=== PATIENT | female | born 1985 | race Caucasian/White ===

== ENCOUNTER 2019-10-09 10:28 | Emergency (ER) | payer OTHER, SELFPAY ==
[2019-10-09 10:33] VITALS: BP 124/98; PULSE 107; RESP 16; TEMP 36.3
--- NOTE | 2019-10-09 10:58 | ED.URI ---
HPI - URI/Sore Throat General Chief Complaint: Upper Respiratory Infection Stated Complaint: sore throat Time Seen by Provider: 10/09/19 10:58 Source: patient and RN notes reviewed Mode of arrival: ambulatory Limitations: no limitations History of Present Illness HPI Narrative: 34-year-old female who presents to [facility] with complaints of 5 days of sore throat, some sinus congestion and pressure low-grade fevers of 99 Fahrenheit. Patient states she has a history of strep throat and also of sinus infections did take Sudafed and also ibuprofen for her discomfort patient does have some lymphadenopathy bilaterally rates her pain a 7 out of 10 to her throat especially with swallowing. MD elicited complaint: fever (low grade), sore throat, rhinorrhea, nasal congestion and sinus pain Pertinent past history: sinusitis and other (strep throat) Onset (ago): day(s) (5) Consistency: progressively worsening Severity: severe Pain scale (0-10): 7 Description of mucous: clear and yellow Able to tolerate fluids by mouth: Yes Exacerbating factors: swallowing and leaning forward Relieving factors: NSAID and other (sudafed) Associated symptoms: fever, chills, voice changes, rhinorrhea, nasal congestion and sore throat Treatments prior to arrival: ibuprofen and other (sudafed) Related Data Allergies Allergy/AdvReac Type Severity Reaction Status Date / Time No Known Allergies Allergy Verified 10/09/19 10:40 Review of Systems Review of Systems: Narrative: CONSTITUTIONAL reports low-grade fever, chills, or sweats. EYES: Denies visual changes, redness, or discharge. ENT: Positive rhinorrhea, congestion,positive sore throat, no otalgia. CARDIOVASCULAR: Denies chest pain, palpitations, or edema. RESPIRATORY: Occasional nonproductive cough denies dyspnea. GASTROINTESTINAL: Denies abdominal pain, nausea, vomiting, or diarrhea. GENITOURINARY: Denies dysuria or hematuria. SKIN: Denies rash or itching. MUSCULOSKELETAL: Denies back pain, joint pain, or myalgia. NEUROLOGIC: Denies headache, numbness, or weakness. PSYCHIATRIC: Denies anxiety or depression. All systems reviewed & are unremarkable except as noted in HPI and below PMFSH Past Medical History Medical History (Updated 10/09/19 @ 11:12 by Clary Rich NP) Acute sinus infection Anxiety and depression Asthma Surgical History Surgical History (Updated 10/09/19 @ 11:09 by Clary Rich NP) History of bunionectomy Status post wisdom tooth extraction Social History Social History Smoking status: Current every day smoker Alcohol intake: current Substance use type: marijuana Gender identity (if verbalized by the patient): Female Comments At time of signature, agree with nursing past medical, social history. There is no relevant family history pertinent to the presenting complaint Exam Narrative: Exam Narrative: GENERAL: Well-appearing, well-nourished, and in no acute distress. HEAD: Normocephalic, atraumatic. EYES: PERRLA and EOMI. ENT: Nares red with light yellow rhinorrhea no epistaxis. Mucous membranes moist. TMs normal with good light reflex throat red with tonsils swollen white patches on left tonsil NECK: Supple. No lymphadenopathy CHEST: Clear to auscultation. No respiratory distress. SaO2 100% HEART: Regular rate and rhythm. No murmur heard. Normal peripheral pulses. ABDOMEN: Soft, nontender, nondistended, normal active bowel sounds. EXTREMITIES: Normal range of motion. No edema. SKIN: Warm, dry, no rash. NEURO: No focal deficits. Alert and oriented x3. Course Vital Signs Vital signs: Vital Signs Temperature 36.3 C L 10/09/19 10:33 Pulse Rate 107 H 10/09/19 10:33 Respiratory Rate 16 10/09/19 10:33 Blood Pressure 124/98 H 10/09/19 10:33 Temperature 36.3 C L 10/09/19 10:33 Pulse Rate 107 H 10/09/19 10:33 Respiratory Rate 16 10/09/19 10:33 Blood Pressure 124/98 H 10/09/19 10:3
== END 2019-10-09 11:16 | disposition home or self-care (01) ==
PROVIDERS: Emergency Provider Registered Nurse; PCP Family Medicine Adolescent Medicine
DX: J03.90 Acute tonsillitis, unspecified (principal); J01.80 Other acute sinusitis; J45.909 Unspecified asthma, uncomplicated; F17.200 Nicotine dependence, unspecified, uncomplicated
CPT/HCPCS: 87081; 87880; 99213; G0463

== ENCOUNTER 2019-10-22 10:36 | Emergency (ER) | payer OTHER, SELFPAY ==
[2019-10-22 11:13] VITALS: BP 131/88; PULSE 85; RESP 20; TEMP 36.5; O2SAT 100
--- NOTE | 2019-10-22 11:22 | ED.GENADULT ---
HPI - General Adult General Chief complaint: Ear Stated complaint: sore throat/ear pn Time Seen by Provider: 10/22/19 11:22 Source: patient Mode of arrival: ambulatory Limitations: no limitations History of Present Illness HPI narrative: 34-year-old female patient presents to the [facility] with complaints of sore throat. Patient states she was seen here about 2 weeks ago and tested negative for strep but they gave her amoxicillin anyway. Patient states that she finished the amoxicillin and was feeling a little bit better but not completely cured . Patient states now that she has had sore throat that is gotten increasingly worse the past couple of days since finishing amoxicillin. Patient also states she has had some bilateral ear pain, runny nose, stuffy nose that she has been trying to take Sudafed, ibuprofen, Tylenol Mucinex for. Patient denies any fevers that she is aware of. Related Data Allergies Allergy/AdvReac Type Severity Reaction Status Date / Time No Known Allergies Allergy Verified 10/09/19 10:40 Review of Systems Review of Systems: Narrative: CONSTITUTIONAL: Denies fever, chills, or sweats. EYES: Denies visual changes, redness, or discharge. ENT: Positive rhinorrhea, congestion, sore throat, and bilateral otalgia. CARDIOVASCULAR: Denies chest pain, palpitations, or edema. RESPIRATORY: Denies cough or dyspnea. GASTROINTESTINAL: Denies abdominal pain, nausea, vomiting, or diarrhea. GENITOURINARY: Denies dysuria or hematuria. SKIN: Denies rash or itching. MUSCULOSKELETAL: Denies back pain, joint pain, or myalgia. NEUROLOGIC: Denies headache, numbness, or weakness. PSYCHIATRIC: Denies anxiety or depression. [facility] Past Medical History Medical History Acute sinus infection Anxiety and depression Asthma Surgical History Surgical History History of bunionectomy Status post wisdom tooth extraction Family History Family History Grandparent Diabetes mellitus Other Family history of malignant neoplasm of breast Social History Social History Smoking status: Current every day smoker Alcohol intake: current Substance use type: marijuana Gender identity (if verbalized by the patient): Female Comments At the time of my signature I agree with nursing past medical history, surgical, social, and family history. There is no relevant family history pertinent to the presenting complaint. Exam Narrative: Exam Narrative: GENERAL: Well-appearing, well-nourished, and in no acute distress. HEAD: Normocephalic, atraumatic. EYES: PERRLA and EOMI. ENT: Nares with erythema and edema noted bilaterally, no rhinorrhea or epistaxis. Mucous membranes moist. Posterior pharynx with 1+ tonsil enlargement but no exudates no lesions present. NECK: Supple. No lymphadenopathy CHEST: Clear to auscultation. No respiratory distress. HEART: Regular rate and rhythm. No murmur heard. Normal peripheral pulses. ABDOMEN: Soft, nontender, nondistended, normal active bowel sounds. EXTREMITIES: Normal range of motion. No edema. SKIN: Warm, dry, no rash. NEURO: No focal deficits. Alert and oriented x3. Course Vital Signs Vital signs: Vital Signs Temperature 36.5 C 10/22/19 11:13 Pulse Rate 85 10/22/19 11:13 Respiratory Rate 20 10/22/19 11:13 Blood Pressure 131/88 10/22/19 11:13 Pulse Oximetry 100 10/22/19 11:13 Temperature 36.5 C 10/22/19 11:13 Pulse Rate 85 10/22/19 11:13 Respiratory Rate 20 10/22/19 11:13 Blood Pressure 131/88 10/22/19 11:13 Pulse Oximetry 100 10/22/19 11:13 Vital signs reviewed. The patient has been informed that they may have pre-hypertension or Hypertension based on a BP reading in the department. I recommend that the patient [facility]
== END 2019-10-22 11:33 | disposition home or self-care (01) ==
PROVIDERS: Emergency Provider Nurse Practitioner Family; PCP Family Medicine Adolescent Medicine
DX: J02.0 Streptococcal pharyngitis (principal); F17.200 Nicotine dependence, unspecified, uncomplicated; J45.909 Unspecified asthma, uncomplicated
CPT/HCPCS: 87804; 87880; 99213; G0463

== ENCOUNTER 2019-11-16 15:28 | Emergency (ER) | payer OTHER, SELFPAY ==
[2019-11-16 15:38] VITALS: BP 145/95; PULSE 94; RESP 20; TEMP 37.4; O2SAT 100
--- NOTE | 2019-11-16 15:44 | ED.FEMALEGU ---
HPI - Female Genitourinary General Chief complaint: Urogenital-Female Stated complaint: Possible UTI Time Seen by Provider: 11/16/19 15:46 Source: patient and RN notes reviewed Mode of arrival: ambulatory Limitations: no limitations History of Present Illness HPI Narrative: 34 female presents with concern for burning with urination, vaginal burning and itching. Reports she saw her relationship executive on November 13 and was swabbed, she is not short for, and has not received those results yet. She did not receive any medication at that time. She reports she used [id number] 3-day Monistat topical treatment with no relief. Reports she started that 3-day treatment 5 days ago. Her last menstrual period was on 11/05/2019. She took Azo today with no relief. She denies frequency, urgency, hematuria. Related Data Home Medications Medication Instructions Recorded Confirmed cetirizine 10 mg capsule 10 mg PO DAILY 11/14/19 11/16/19 fluticasone propionate 50 1 spray NASAL DAILY 11/14/19 11/16/19 mcg/actuation nasal spray,suspension Allergies Allergy/AdvReac Type Severity Reaction Status Date / Time No Known Allergies Allergy Verified 11/14/19 10:11 Review of Systems Review of Systems: Narrative: CONSTITUTIONAL: Denies malaise, chills, sweats, or fever. CARDIOVASCULAR: Denies chest pain, palpitations, or edema. RESPIRATORY: Denies cough or dyspnea. GASTROINTESTINAL: Denies abdominal pain, nausea, vomiting, diarrhea, GENITOURINARY: Reports dysuria, vaginal itching, vaginal irritation. Denies frequency, urgency, or hematuria. MUSCULOSKELETAL: Denies back pain, myalgia. All systems reviewed & are unremarkable except as noted in HPI and below PMFSH Social History Social History Smoking status: Current every day smoker Alcohol intake: current Substance use type: marijuana Gender identity (if verbalized by the patient): Male Comments At time of signature, agree with nursing past medical, surgical, social and family history. There is no relevant family history pertinent to the presenting complaint Exam Narrative: Exam Narrative: GENERAL: Well-appearing, well-nourished, and in no acute distress. HEAD: Normocephalic. EYES: PERRLA, conjunctivae clear. NECK: Supple. No lymphadenopathy CHEST: Clear to auscultation. No respiratory distress. HEART: Regular rate and rhythm. No murmur heard. Normal peripheral pulses. ABDOMEN: Soft, nontender upon palpation, nondistended, normal active bowel sounds, no palpable or pulsatile masses, no guarding. No CVA tenderness SKIN: Warm, dry, no rash. NEURO: Alert and oriented x3. PSYCH: Normal mood and affect : General: Yes no CVA tenderness External Female Exam: erythema (Mild erythema very mild excoriation noted) Speculum Exam - Vagina: normal appearance of the vagina, normal palpation and normal vaginal discharge Speculum Exam - Cervix: normal appearance of the cervix and normal palpation Bimanual exam- vagina & uterus: other (No cervical motion tenderness or adnexal tenderness) Female genitals images: 1. Mild excoriation and erythema 2. Mild excoriation and erythema Course Course Emergency Course: Patient potential diagnosis, advised her to follow-up with her primary care provider regarding results of test done at her office, advised we will contact her if her urine culture identifies a bacteria that requires antibiotic. Patient is aware of, understands, and agrees to treatment plan. Anticipatory guidance given. Patient agrees to follow-up as directed and is aware of reasons to seek care at the emergency department. Portions of this record may have been created with voice recognition software Vital Signs Vital signs: Vital Signs Temperature 99.3 F 11/16/19 15:38 Pulse Rate 94 11/16/19 15:38 Respiratory Rate 20 11/16/19 15:38 Blood Pressure 145/95 H 11/16/19 15:38 Pulse Oximetry 100 11/16/19 15:38
--- NOTE | 2019-11-16 15:57 | PC.NURSE ---
Pelvic exam per reynaldo [facility] no cultures
== END 2019-11-16 16:01 | disposition home or self-care (01) ==
PROVIDERS: Emergency Provider Nurse Practitioner; PCP Family Medicine Adolescent Medicine
DX: N89.8 Other specified noninflammatory disorders of vagina (principal); R30.0 Dysuria; F17.200 Nicotine dependence, unspecified, uncomplicated
CPT/HCPCS: 81003; 87086; 99214; G0463

== ENCOUNTER 2020-04-10 15:04 | Emergency (ER) | payer OTHER, SELFPAY ==
[2020-04-10 15:08] VITALS: BP 142/99; PULSE 100; RESP 18; TEMP 36.1; O2SAT 99
--- NOTE | 2020-04-10 16:54 | ED.GENADULT ---
HPI - General Adult General Chief complaint: Anxiety <Jay Painter PA-C - Last Filed: 04/10/20 18:16> Stated complaint: Heart Racing, Anxiety <Jay Painter PA-C - Last Filed: 04/10/20 18:16> Time Seen by Provider: 04/10/20 16:22 <KERI England Last Filed: 04/10/20 18:16> Source: patient <KERI England Last Filed: 04/10/20 18:16> Mode of arrival: ambulatory <Jay Painter PA-C - Last Filed: 04/10/20 18:16> Limitations: no limitations <Jay Painter PA-C - Last Filed: 04/10/20 18:16> History of Present Illness HPI narrative: Patient is a 34-year-old female who presents to emergency department for evaluation of anxiety and not feeling well which has been off and on over the weekend into today patient has not taken anything for her symptoms on arrival patient becomes tearful and anxious in giving the history patient denies any pain illness or other complaints <Jay Painter PA-C - Last Filed: 04/10/20 18:16> Related Data Home medications: Home Medications Medication Instructions Recorded Confirmed cetirizine 10 mg capsule 10 mg PO DAILY 11/14/19 11/16/19 fluticasone propionate 50 1 spray NASAL DAILY 11/14/19 11/16/19 mcg/actuation nasal spray,suspension <Jay Painter PA-C - Last Filed: 04/10/20 18:16> Allergies/adverse reactions: Allergies Allergy/AdvReac Type Severity Reaction Status Date / Time No Known Allergies Allergy Verified 04/10/20 15:11 <Jay Painter PA-C - Last Filed: 04/10/20 18:16> Review of Systems Review of Systems: All systems reviewed & are unremarkable except as noted in HPI and below <Jay Painter PA-C - Last Filed: 04/10/20 18:16> PMFSH Past Medical History Medical History: Medical History Acute sinus infection Anxiety and depression Asthma Vaginal delivery <KERI England Last Filed: 04/10/20 18:16> Surgical History Surgical History: Surgical History History of bunionectomy Status post wisdom tooth extraction <Jay Painter PA-C - Last Filed: 04/10/20 18:16> Social History Social History: Social History Smoking status: Current every day smoker Alcohol intake: current Substance use type: marijuana Gender identity (if verbalized by the patient): Male <Jay Painter PA-C - Last Filed: 04/10/20 18:16> Exam Narrative: Exam Narrative: GENERAL: Well-appearing, well-nourished, and in no acute distress. HEAD: Normocephalic, atraumatic. EYES: PERRLA and EOMI. ENT: Nares clear, no rhinorrhea or epistaxis. Mucous membranes moist. CHEST: Clear to auscultation. No respiratory distress. No wheezes rales or rhonchi HEART: Regular rate and rhythm. No murmur heard. Normal peripheral pulses. ABDOMEN: Soft, nontender, nondistended EXTREMITIES: Normal range of motion. No edema. SKIN: Warm, dry, no rash. NEURO: No focal deficits. Alert and oriented x3. PSYCH: Acutely anxious with normal affect <Jay Painter PA-C - Last Filed: 04/10/20 18:16> Course Course Emergency Course: Patient in the room at this time resting comfortably aware of case findings treatment plan and diagnosis afebrile nontoxic-appearing no high risk changes in the blood work felt appropriate for outpatient reevaluation by primary care patient was given fluids and medications in the emergency department <Jay Painter PA-C - Last Filed: 04/10/20 18:16> Vital Signs Vital signs: Vital Signs Temperature 97.0 F L 04/10/20 15:08 Pulse Rate 100 04/10/20 15:08 Respiratory Rate 18 04/10/20 15:08 Blood Pressure 142/99 H 04/10/20 15:08 Pulse Oximetry 99 04/10/20 15:08 Temperature 97.0 F L 04/10/20 15:08 Pulse Rate 83 04/10/20 18:20 Respiratory Rate 18
--- NOTE | 2020-04-10 17:18 | PC.NURSE ---
pt found rolling around in bed laughing at videos on phone, in no aparent distress. does not appear anxious.
[2020-04-10 17:31] LABS: Alanine Aminotransferase 27 U/L (4-35); Albumin Level 4.7 g/dL (3.5-5.1); Alkaline Phosphatase 73 U/L (38-126); Anion Gap 10 mmol/L (8-16); Aspartate Amino Transferase 33 U/L (14-36); Bilirubin,Total 0.8 mg/dL (0.2-1.3); Blood Urea Nitrogen 14 mg/dL (7-17); Calcium 9.3 mg/dL (8.4-10.2); Carbon Dioxide 23 mmol/L (22-30); Chloride 103 mmol/L (98-107); Estimated CRCL calculation 120 ml/min; Estimated Glomerular Filt Rate > 60; Glucose 86 mg/dL (65-105); Potassium 4.4 mmol/L (3.4-5.0); Sodium 136 mmol/L (137-145)
[2020-04-10 17:41] LABS: Basophils Absolute Auto 0.1 K/mm3 (0.0-0.1); Basophils Percent Auto 0.8 % (0.2-1.2); Eosinophils Absolute Auto 0.4 K/mm3 (0-0.3); Eosinophils Percent Auto 3.4 % (0-4.4); Hematocrit 43.9 % (37.0-47.0); Immature Granulocyte Absolute 0.04 K/mm3 (0.00-0.031); Immature Granulocyte Percent A 0.4 % (0-0.5); Lymphocytes Absolute Auto 2.68 K/mm3 (0.9-3.2); Lymphocytes Percent Auto 24.8 % (18.3-44.2); Mean Corpuscular HGB Conc 36.4 g/dl (32-36); Mean Corpuscular Hemoglobin 32.5 pg (26-34); Mean Corpuscular Volume 89.2 fl (80-100); Mean Platelet Volume 10.2 fl (7.4-10.4); Monocytes Absolute Auto 0.7 K/mm3 (0.1-0.6); Monocytes Percent Auto 6.7 % (2.6-8.5); Neutrophils Absolute Auto 6.9 K/mm3 (1.3-6.7); Neutrophils Percent Auto 63.9 % (45.5-73.1); Platelet Count Result 281 k/mm3 (150-375); Red Blood Count 4.92 M/mm3 (4.2-5.4); Red Cell Distribution Width 12.5 % (11.5-14.5); White Blood Count 10.8 K/mm3 (4.5-10.0)
[2020-04-10 17:52] LABS: Add Urine Microscopic? YES; Appearance Urine Clear (Clear); Bacteria Urine Trace /hpf; Bilirubin Urine Negative (Negative); Blood Urine 1+ (Negative); Color Urine Yellow (Yellow); Glucose Urine UA Negative (Negative); Ketones Urine Negative (Negative); Leukocyte Esterase Ur Negative LEU/UL (Negative); Mucus Urine Rare /lpf; Nitrate Urine Negative (Negative); Protein Urine Negative (Negative); Specific Grav Ur 1.014 (1.001-1.035); Squamous Epithelial Cell Urine Few /hpf (Few); Urobilinogen Urine Negative mg/dL (<2.0); WBC Urine 0-3 /hpf
[2020-04-10 18:20] VITALS: BP 124/84; PULSE 83; RESP 18; O2SAT 100
== END 2020-04-10 18:21 | disposition home or self-care (01) ==
PROVIDERS: Emergency Medicine Emergency Medical Services; Emergency Provider General Practice; PCP Family Medicine Adolescent Medicine
DX: F41.9 Anxiety disorder, unspecified (principal); F32.9 Major depressive disorder, single episode, unspecified; J45.909 Unspecified asthma, uncomplicated
CPT/HCPCS: 36415; 80053; 81001; 85025; 96374; 99284; J2060

== ENCOUNTER 2020-05-01 09:33 | Outpatient (CLI) | payer OTHER, SELFPAY ==
--- NOTE | 2020-05-06 13:35 | P.PCNHOL_ITS ---
Holter/Event Monitor Holter/Event Monitor Date of procedure: 05/01/20 Procedure Type: 24 hour Holter monitor Diagnosis: tachycardia Indications: tachycardia Image/Tracing Quality: favorable Finding: the cardiac rhythm is sinus with normal FL QRS and QT intervals. The heart rate varies from a minimum of 55 to a maximum of 145. A mean rate of 82 was recorded. There were no significant pauses or abnormalities of AV conduction. The longest RR interval recorded was 1.1 seconds. Supraventricular ectopic activity was not seen at all during this study. There were no examples of atrial fibrillation or SVT. Ventricular ectopic activity was not seen at all during this study the patient is submitted a diary in which there were no cardiac symptoms reported Conclusion: unremarkable 24 hour Holter monitor Mikel Dumont MD [facility]
== END 2020-05-01 09:34 | disposition home or self-care (01) ==
PROVIDERS: PCP Family Medicine Adolescent Medicine; Visit Provider Physician Assistant
DX: R00.0 Tachycardia, unspecified (principal)
CPT/HCPCS: 93225; 93226

== ENCOUNTER 2020-09-15 14:20 | Emergency (ER) | payer OTHER, SELFPAY ==
[2020-09-15 14:35] VITALS: BP 127/87; PULSE 83; RESP 18; TEMP 36.7; O2SAT 100
--- NOTE | 2020-09-15 14:47 | ED.URI ---
HPI - URI/Sore Throat General Chief Complaint: Upper Respiratory Infection Stated Complaint: sinus inf Time Seen by Provider: 09/15/20 14:38 Source: patient and RN notes reviewed Mode of arrival: ambulatory Limitations: no limitations History of Present Illness HPI Narrative: Patient presents today with a 2-week history of nasal congestion, rhinorrhea, sinus pressure and a 3-day history of productive cough and wheezing. Denies fever, body aches, shortness of breath, loss of taste or smell, sore throat. She has been using Sudafed, Mucinex, Flonase, Zyrtec, ibuprofen, and an albuterol inhaler with some relief. She quit smoking 5 weeks ago. She had a COVID-19 test 7 to 8 days ago that was negative. Denies history of asthma or COPD. Related Data Home Medications Medication Instructions Recorded Confirmed cetirizine 10 mg capsule 10 mg PO DAILY 11/14/19 11/16/19 fluticasone propionate 50 1 spray NASAL DAILY 11/14/19 11/16/19 mcg/actuation nasal spray,suspension Allergies Allergy/AdvReac Type Severity Reaction Status Date / Time No Known Allergies Allergy Verified 08/02/20 09:39 Review of Systems Review of Systems: Narrative: CONSTITUTIONAL: Denies body aches, fever, chills, or sweats. EYES: Denies visual changes, redness, or discharge. ENT: Denies sore throat, or otalgia. + Sinus pressure, congestion, rhinorrhea CARDIOVASCULAR: Denies chest pain, palpitations, or edema. RESPIRATORY: Denies dyspnea.+ Cough, wheezing GASTROINTESTINAL: Denies abdominal pain, nausea, vomiting, or diarrhea. GENITOURINARY: Denies dysuria or hematuria. SKIN: Denies rash, itching, or wounds. MUSCULOSKELETAL: Denies back pain, joint pain, or myalgia. NEUROLOGIC: Denies headache, numbness, tingling, or weakness. PSYCH: Denies depression or anxiety. [facility] Past Medical History Medical History (Updated 09/15/20 @ 14:48 by Eduarda Davies, [employer], ) Acute sinus infection Anxiety and depression Asthma Vaginal delivery Surgical History Surgical History History of bunionectomy Status post wisdom tooth extraction Family History Family History Grandparent Diabetes mellitus Other Family history of malignant neoplasm of breast Social History Social History (Updated 08/02/20 @ 10:24 by Ximnea Marr [facility]) Smoking status: Current every day smoker Alcohol intake: current Substance use type: marijuana Gender identity (if verbalized by the patient): Female Comments At time of signature, I have reviewed and agree with nursing past medical, surgical, social and family history unless otherwise noted. Please see nursing chart for further information. There is no relevant family history pertinent to the presenting complaint Exam Narrative: Exam Narrative: GENERAL: Well-appearing, well-nourished, and in no acute distress. HEAD: Normocephalic, atraumatic. EYES: EOMI. No redness or drainage. Conjunctivae normal. ENT: Mucous membranes pink and moist. Nares congested. No frontal or maxillary sinus tenderness. No rhinorrhea. TMs normal bilaterally. Throat normal. Uvula midline. NECK: Normal AROM. Supple. No lymphadenopathy. CHEST: No respiratory distress. Inspiratory and expiratory wheezes throughout. HEART: Regular rate and rhythm. No murmur appreciated. Normal peripheral pulses. EXTREMITIES: Normal range of motion. No edema. SKIN: Warm, dry, no rash. Capillary refill normal. Normal skin turgor. NEURO: No focal deficits. Alert and oriented x3. Gait steady. PSYCH: Normal affect. No signs of depression or anxiety. Course Course Emergency Course: 1520?patient states she feels much better and is breathing much better after DuoNeb treatment. Aeration is much improved. Wheezing has improved as well. Vital Signs Vital signs: Vital Signs Temperature 98.1 F 09/15/20 14:35 Pulse Rate 83 09/15/20 14
[2020-09-15] MEDS: ALBUTEROL SULFATE NEB 2.5 MG/3 ML INH INHALATION (14:53)
[2020-09-15] MEDS: IPRATROPIUM BR 0.02% INH SOLN 0.5 MG/2.5 ML VIAL INHALATION (14:53)
== END 2020-09-15 15:28 | disposition home or self-care (01) ==
PROVIDERS: Emergency Provider Nurse Practitioner; PCP Family Medicine Adolescent Medicine
DX: J40 Bronchitis, not specified as acute or chronic (principal); J01.90 Acute sinusitis, unspecified; F17.200 Nicotine dependence, unspecified, uncomplicated; J45.909 Unspecified asthma, uncomplicated
CPT/HCPCS: 94640; 99213; G0463

== ENCOUNTER 2021-06-28 10:36 | Emergency (ER) | payer OTHER, SELFPAY ==
[2021-06-28 10:49] VITALS: BP 128/91; PULSE 79; RESP 18; TEMP 36.3; O2SAT 100
--- NOTE | 2021-06-28 11:18 | ED.URI ---
HPI - URI/Sore Throat General Chief Complaint: Upper Respiratory Infection Stated Complaint: runny nose,nasal drip,sorethroat,cough Source: patient and RN notes reviewed Limitations: no limitations History of Present Illness HPI Narrative: The vaccinated patient, ex-smoker/nondrinker works in food service associate, presents with half week history of nasal congestion, cough, and frontal/sinus headache. No fever measured, sore throat, earache; no loss of taste/smell, CP, vomiting/diarrhea, S OB. 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 I recommend that the patient call the primary care provider listed on their discharge instructions or a physician of their choice this week to arrange follow up for further evaluation of possible pre-hypertension or Hypertension General/Constitutional: No weight loss,fever Eyes: N0: Redness,discharge Ears/Nose/Throat: No: Epistaxis,ear discharge Respiratory: Denies: Hemoptysis Gastrointestinal: No Vomiting, Bleeding-rectal Skin: No Lumps, eruption Neurologic: No Focal Weakness,Sz Hematologic: Denies: Petechiae/Purpura Psychiatric: No: Suicida ideationl All Other Systems: Reviewed and Negative [facility] Past Medical History Medical History (Updated 06/28/21 @ 11:28 by Dedrick Vazquez MD) Acute sinus infection Anxiety and depression Asthma Vaginal delivery Surgical History Surgical History History of bunionectomy Status post wisdom tooth extraction Family History Family History Grandparent Diabetes mellitus Other Family history of malignant neoplasm of breast Social History Social History (Updated 03/19/21 @ 09:20 by Ximena Marr CMA) Smoking status: Former smoker Smoking end date: 09/16/20 Alcohol intake: current Substance use type: marijuana Gender identity (if verbalized by the patient): Female Comments At time of signature, agree with nursing past medical, surgical, social and family history. There is no relevant family history pertinent to the presenting complaint Exam Narrative: General Appearance: Well appearing, Well nourished EYE: PERRLA, Conjunctiva clear Ears: Auditory canal normal, TM normal Nose: Rhinorrhea, Mucousal erythema Mouth/Throat: MM moist, Uvula midline, Pharyngeal erythema Neck: Supple, No adenopathy Respiratory: No respiratory distress, Breath sounds equal, CTA except wheeze on forced expiration Cardiovascular: RRR, No JVD Musculoskeletal: Non tender, Normal strength Skin: Warm, Dry Neurological: A&O x3, CN II-XII intact Psychiatric: Normal mood, Normal affect Course Vital Signs Vital signs: Vital Signs Temperature 97.3 F L 06/28/21 10:49 Pulse Rate 79 06/28/21 10:49 Respiratory Rate 18 06/28/21 10:49 Blood Pressure 128/91 H 06/28/21 10:49 Pulse Oximetry 100 06/28/21 10:49 Temperature 97.3 F L 06/28/21 10:49 Pulse Rate 79 06/28/21 10:49 Respiratory Rate 18 06/28/21 10:49 Blood Pressure 128/91 H 06/28/21 10:49 Pulse Oximetry 100 06/28/21 10:49 MDM - URI/Sore Throat Lab Data Labs: Lab Results 06/28/21 Range/Units 10:59 POC SARS CoV-2 Ag Negative (Negative) Discharge Plan Discharge Clinical Impression: Sinus headache, Wheezing-associated respiratory infection (WARI) Patient Disp
== END 2021-06-28 11:25 | disposition home or self-care (01) ==
PROVIDERS: Emergency Provider Emergency Medicine; PCP Family Medicine Adolescent Medicine
DX: R51.9 Headache, unspecified (principal); J21.9 Acute bronchiolitis, unspecified; Z20.822 Contact with and (suspected) exposure to COVID-19; J45.909 Unspecified asthma, uncomplicated
CPT/HCPCS: 87426; 99213; C9803; G0463

== ENCOUNTER 2021-10-24 10:10 | Emergency (ER) | payer OTHER, SELFPAY ==
[2021-10-24 10:19] VITALS: BP 127/86; PULSE 86; RESP 20; TEMP 36.3; O2SAT 100
--- NOTE | 2021-10-24 10:41 | ED.SKABFB ---
HPI - Skin/Abscess/Foreign Bdy General Chief complaint: Skin/Abscess/Foreign Body Stated complaint: rash Source: patient Mode of arrival: ambulatory Limitations: no limitations History of Present Illness HPI narrative: 36-year-old female presents to [facility] with complaints of erythematous rash to her chest wall, bilateral upper arms and groin region for the past week. Patient denies itching or pain to the area. Patient denies new medications, new soaps, new detergents or new medications. Patient reports that she did have cold-like symptoms approximate 2 to 3 weeks ago. Patient has been applying [id number] ointments with little relief. complaint: rash Onset (ago): week(s) (1) Location: chest, LUE and RUE Relieving factors: none Exacerbating factors: none Context: none Treatments prior to arrival: OTC topical medication Related Data Home Medications Medication Instructions Recorded Confirmed albuterol sulfate 2 inh INHALATION PRN PRN 10/24/21 10/24/21 cetirizine [Zyrtec] 10 mg PO DAILY 10/24/21 10/24/21 fluticasone propionate [Flonase] 2 spray INTRANASAL DAILY 10/24/21 10/24/21 Allergies Allergy/AdvReac Type Severity Reaction Status Date / Time No Known Allergies Allergy Verified 10/24/21 10:17 Review of Systems Constitutional: Constitutional: Denies chills, Denies fatigue, Denies fever(s) and Denies weakness ENT: Denies dysphagia, Denies epistaxis and Denies sore throat Cardiovascular: Cardiovascular: Denies chest pain and Denies radiating jaw, neck or arm pain Respiratory: Respiratory: Denies cough, Denies dyspnea and Denies wheezing Gastrointestinal: Gastrointestinal: Denies diarrhea, Denies nausea and Denies vomiting Integumentary/Breasts: Skin/Breast: Denies pruritus, Reports rash and Denies skin ulcer Neurologic: Denies dizziness and Denies syncope [facility] Past Medical History Medical History (Updated 10/24/21 @ 10:46 by Kiana Zapata APRN) Acute sinus infection Anxiety and depression Asthma Vaginal delivery Surgical History Surgical History History of bunionectomy Status post wisdom tooth extraction Family History Family History Grandparent Diabetes mellitus Other Family history of malignant neoplasm of breast Social History Social History Smoking status: Former smoker Smoking end date: 09/16/20 Alcohol intake: current Substance use type: marijuana Gender identity (if verbalized by the patient): Female Comments At time of signature, I agree with nursing past medical, surgical, social and family history. There is no relevant family history pertinent to the presenting complaint. Exam Const: General: no acute distress Nutritional Appearance: well nourished Orientation/consciousness: patient oriented x3 Neck: Neck: normal visual inspection Resp: Effort & Inspection: normal respiratory effort Auscultation: clear to auscultation bilaterally Cardio: Rate: regular rate, not bradycardic and not tachycardic Rhythm: regular rhythm Heart sounds: no murmurs Skin: General skin exam: normal color Wounds: no wounds Other: Sporadic erythematous scaly type rash noted to chest wall, upper bilateral arms and groin region. There is a 2 cm herald patch noted to inner aspect of left upper arm. Rash likely represents pityriasis rosea. Neuro: General: patient oriented x3, moves all extremities and no meningeal signs Psych: Appearance: grossly normal Mental Status: mental status grossly normal Affect: normal affect Attitude: cooperative Course Course Level of Care: Express Care Visit Vital Signs Vital signs: Vital Signs Temperature 36.3 C L 10/24/21 10:19 Pulse Rate 86 10/24/21 10:19 Respiratory Rate 20 10/24/21 10:19 Blood Pressure 127/86 10/24/21 10:19 Pulse Oximetry 100 10/24/21
== END 2021-10-24 10:47 | disposition home or self-care (01) ==
PROVIDERS: Emergency Provider Nurse Practitioner Family; PCP Family Medicine Adolescent Medicine
DX: L42 Pityriasis rosea (principal); Z87.891 Personal history of nicotine dependence; J45.909 Unspecified asthma, uncomplicated
CPT/HCPCS: 99213; G0463

== ENCOUNTER 2021-11-09 12:11 | Emergency (ER) | payer OTHER, SELFPAY ==
[2021-11-09] VITALS (13 sets, daily range): BP systolic 132–153; BP diastolic 78–109; PULSE 65–87; RESP 9–29; TEMP 36.4; O2SAT 84–100
--- NOTE | ~2021-11-09 | XR_ITS ---
EXAMINATION: XR chest 2V EXAM DATE: 11/09/2021 14:24 INDICATION: Upper Back Pain, Cp, Hx Anxiety . TECHNIQUE: Frontal and lateral projections of the chest obtained and reviewed. There is no prior dawn dy for comparison. FINDINGS: The lungs are clear. There are no pleural effusions. The cardiomediastinal silhouette is within normal limits. There is no pneumothorax suspected. The bones and soft tissues are unremarkab le. IMPRESSION: Unremarkable chest x-ray exam. Reviewed, dictated and finalized at location G.
--- NOTE | 2021-11-09 12:19 | ECG_ITS ---
Measurements Intervals [place] Rate: 70 P: 38 LA: 178 QRS: 4 QRSD: 114 T: 17 QT: 380 QTc: 411 Interpretive Statements SINUS RHYTHM WITH SINUS ARRHYTHMIA INCOMPLETE RIGHT BUNDLE BRANCH BLOCK [90+ ms QRS DURATION, TERMINAL R IN V1/V2, 40+ ms S IN I/aVL/V4/V5/V6] BORDERLINE ECG NO PREVIOUS ECG AVAILABLE FOR COMPARISON Electronically Signed On 11-09-2021 20:50:49 CDT by Mikel Dumont M.D.
[2021-11-09 14:33] LABS: Basophils Absolute Auto 0.1 K/mm3 (0.0-0.1); Basophils Percent Auto 0.8 % (0.2-1.2); Eosinophils Absolute Auto 0.1 K/mm3 (0-0.3); Eosinophils Percent Auto 1.4 % (0-4.4); Hematocrit 40.1 % (37.0-47.0); Hemoglobin 14.6 g/dL (12.0-15.0); Immature Granulocyte Absolute 0.03 K/mm3 (0.00-0.031); Immature Granulocyte Percent A 0.3 % (0-0.5); Lymphocytes Absolute Auto 2.08 K/mm3 (0.9-3.2); Lymphocytes Percent Auto 21.4 % (18.3-44.2); Mean Corpuscular HGB Conc 36.4 g/dl (32-36); Mean Corpuscular Hemoglobin 31.8 pg (26-34); Mean Corpuscular Volume 87.4 fl (80-100); Mean Platelet Volume 9.8 fl (7.4-10.4); Monocytes Absolute Auto 0.6 K/mm3 (0.1-0.6); Monocytes Percent Auto 6.4 % (2.6-8.5); Neutrophils Absolute Auto 6.8 K/mm3 (1.3-6.7); Neutrophils Percent Auto 69.7 % (45.5-73.1); Platelet Count Result 267 k/mm3 (150-375); Red Blood Count 4.59 M/mm3 (4.2-5.4); Red Cell Distribution Width 12.3 % (11.5-14.5); White Blood Count 9.7 K/mm3 (4.5-10.0)
[2021-11-09 14:43] LABS: Alanine Aminotransferase 23 U/L (4-35); Albumin Level 4.6 g/dL (3.5-5.1); Alkaline Phosphatase 70 U/L (38-126); Anion Gap 9 mmol/L (8-16); Aspartate Amino Transferase 33 U/L (14-36); Bilirubin,Total 0.9 mg/dL (0.2-1.3); Blood Urea Nitrogen 12 mg/dL (7-17); Calcium 8.8 mg/dL (8.4-10.2); Carbon Dioxide 24 mmol/L (22-30); Chloride 105 mmol/L (98-107); Estimated CRCL calculation 120 ml/min; Estimated Glomerular Filt Rate > 60; Glucose 101 mg/dL (65-110); Potassium 3.9 mmol/L (3.4-5.0); Sodium 138 mmol/L (137-145)
--- NOTE | 2021-11-09 14:51 | ED.ANXIETY ---
HPI - Anxiety General Chief Complaint: Anxiety Stated Complaint: panic attack Time Seen by Provider: 11/09/21 14:11 Source: patient History of Present Illness HPI narrative: 36-year-old female presented to the emergency department for evaluation of back pain chest pain and anxiety. Patient states a few days ago she was playing on the driveway with her child when she felt that she injured her left shoulder. Patient states since that time she has had intermittent back pain that radiates from her left shoulder to her axilla to anterior chest. Patient reports he does have longstanding history of anxiety and recently restarted her Zoloft. Patient does still have Ativan for anxiety control. Patient states that she did take 1/2mg Ativan but still had a panic attack. Patient was concern for underlying cardiac etiology for her pain and she presented to the emergency department for evaluation. Patient denies any prior history of [place]. Patient has never had a stress test. Related Data Home Medications Medication Instructions Recorded Confirmed albuterol sulfate 2 inh INHALATION PRN PRN 10/24/21 11/09/21 cetirizine [Zyrtec] 10 mg PO DAILY 10/24/21 11/09/21 fluticasone propionate [Flonase] 2 spray INTRANASAL DAILY 10/24/21 11/09/21 Allergies Allergy/AdvReac Type Severity Reaction Status Date / Time No Known Allergies Allergy Verified 11/04/21 08:49 Review of Systems Review of Systems: CONSTITUTIONAL: Denies fever, chills, or sweats. EYES: Denies visual changes, redness, or discharge. ENT: Denies rhinorrhea, congestion, sore throat, or otalgia. CARDIOVASCULAR: Left lateral chest pain RESPIRATORY: Denies cough or dyspnea. GASTROINTESTINAL: Denies abdominal pain, nausea, vomiting, or diarrhea. GENITOURINARY: Denies dysuria or hematuria. SKIN: Denies rash or itching. MUSCULOSKELETAL: Left posterior shoulder muscular tenderness NEUROLOGIC: Denies headache, numbness, or weakness. PSYCHIATRIC: History of anxiety but denies depression, HI or SI. [facility] Past Medical History Medical History (Updated 11/10/21 @ 00:00 by Nasir Daemon) Acute sinus infection Anxiety and depression Asthma Generalized anxiety disorder Vaginal delivery Surgical History Surgical History History of bunionectomy Status post wisdom tooth extraction Family History Family History (Updated 11/04/21 @ 08:55 by Kathie Aguilar MA) Grandparent Acute myocardial infarction Asthma Depression Diabetes mellitus Heart disease Other Breast cancer Family history of malignant neoplasm of breast Mother Depression Father Depression Social History Social History Smoking status: Former smoker Smoking end date: 09/16/20 Alcohol intake: current Substance use type: marijuana Gender identity (if verbalized by the patient): Female Exam Narrative: APPEARANCE: Patient anxious and tearful on initial exam HEAD: normocephalic, atraumatic. EYES: PERRLA/EOMI, conjunctivae clear. NOSE: Normal no drainage NECK: Supple. No adenopathy, no masses. RESPIRATORY: Airway patent, respirations nonlabored. Clear to auscultation bilaterally, no rales, rhonchi, wheezing. CARDIOVASCULAR: Regular rate and rhythm without murmurs rubs or gallops. ABDOMINAL: Soft, nontender, nondistended, normal bowel sounds MUSCULOSKELETAL: Moves all extremities. Strength/ROM intact, No edema, No calf tenderness. Reproducible medial left scapular tenderness with range of motion and deep palpation. Some axillary tenderness to palpation. No ecchymosis, no crepitus, no deformity. NEURO: Alert. Cranial nerves II through XII intact. Grossly intact SKIN: Warm, dry. Normal Color PSYCHIATRIC: Anxiety Course Course Emergency Course: Patient does feel improved with treatment in the emergency department. Patient is still having some residual left shoulder pain. Patient states h
[2021-11-09 14:54] LABS: Troponin I < 0.012 ng/mL (0.000-0.034)
[2021-11-09] MEDS: LORazepam INJ (*CRX) 2 MG/ML VIAL 1 MG IV PUSH (15:32)
[2021-11-09] MEDS: KETOROLAC 15 MG/ML VIAL (*BKC) IV PUSH (15:32)
[2021-11-09 16:59] LABS: Troponin I < 0.012 ng/mL (0.000-0.034)
[2021-11-09] MEDS: CYCLOBENZAPRINE HCL 10 MG TABLET PO (18:32)
[2021-11-09] MEDS: ACETAMINOPHEN 325 MG TABLET 650 MG PO (18:32)
== END 2021-11-09 18:50 | disposition home or self-care (01) ==
PROVIDERS: Emergency Provider Emergency Medicine; PCP Family Medicine Adolescent Medicine
DX: S46.912A Strain of unspecified muscle, fascia and tendon at shoulder and upper arm level, left arm, initial encounter (principal); F41.1 Generalized anxiety disorder; F32.A Depression, unspecified; J45.909 Unspecified asthma, uncomplicated; Z87.891 Personal history of nicotine dependence; X58.XXXA Exposure to other specified factors, initial encounter
CPT/HCPCS: 36415; 71046; 80053; 84484; 85025; 93005; 96374; 96375; 99284; A9270; J1885; J2060

== ENCOUNTER 2021-12-02 10:10 | Emergency (ER) | payer OTHER, SELFPAY ==
--- NOTE | 2021-12-02 10:47 | ED.URI ---
HPI - URI/Sore Throat General Chief Complaint: Upper Respiratory Infection Stated Complaint: cough,bilateral ear pain Time Seen by Provider: 12/02/21 11:26 Source: patient and RN notes reviewed Mode of arrival: ambulatory Limitations: no limitations History of Present Illness HPI Narrative: 36-year-old female presents with concern for 8-day history of sinus pressure, congestion, drainage, cough, hoarse voice, general malaise. Reports she has had a negative COVID test. Reports she has been taking [id number] medications without relief. She reports a history of asthma. She denies shortness of breath, nausea, vomiting, diarrhea. MD elicited complaint: cough and other (Ear pain) Related Data Home Medications Medication Instructions Recorded Confirmed albuterol sulfate 2 inh INHALATION PRN PRN 10/24/21 12/02/21 acyclovir [Zovirax] 400 mg PO DAILY 12/02/21 12/02/21 lorazepam 0.5 mg PO BID 12/02/21 12/02/21 Allergies Allergy/AdvReac Type Severity Reaction Status Date / Time No Known Allergies Allergy Verified 12/02/21 11:25 Review of Systems Review of Systems: CONSTITUTIONAL: Reports malaise. Denies chills, sweats, or fever. EYES: Denies visual changes, redness, or discharge. ENT: Reports rhinorrhea, congestion, sinus pain, otalgia and sore throat. CARDIOVASCULAR: Denies chest pain, palpitations, or edema. RESPIRATORY: Reports persistent cough. Denies dyspnea. GASTROINTESTINAL: Denies abdominal pain, nausea, vomiting, diarrhea SKIN: Denies rash or itching. MUSCULOSKELETAL: Denies myalgia. NEUROLOGIC: Denies headache. All systems reviewed & are unremarkable except as noted in HPI and below PMFSH Past Medical History Medical History (Updated 12/02/21 @ 11:32 by Tanika Smith NP) Acute sinus infection Anxiety and depression Asthma Generalized anxiety disorder Vaginal delivery Surgical History Surgical History History of bunionectomy Status post wisdom tooth extraction Family History Family History (Updated 11/04/21 @ 08:55 by Kathie Aguilar MA) Grandparent Acute myocardial infarction Asthma Depression Diabetes mellitus Heart disease Other Breast cancer Family history of malignant neoplasm of breast Mother Depression Father Depression Social History Social History Smoking status: Former smoker Smoking end date: 09/16/20 Alcohol intake: current Substance use type: marijuana Gender identity (if verbalized by the patient): Female Comments At time of signature, agree with nursing past medical, surgical, social and family history. There is no relevant family history pertinent to the presenting complaint Exam Narrative: GENERAL: Well-appearing, well-nourished, and in no acute distress. HEAD: Normocephalic EYES: PERRLA, conjunctivae clear ENT: Nares clear, turbinates edematous and erythematous, sinus tenderness. Mucous membranes moist. TM pearly christopher with sharp light reflex bilaterally; no tragal tenderness. Oropharynx not erythematous without lesions. Tonsils not enlarged and without exudate, no drooling, hoarse voice, no trismus, uvula midline. NECK: Supple. No lymphadenopathy CHEST: Clear to auscultation, breath sounds equal. No wheezing, rhonchi, rales, or stridor. No respiratory distress, speaks in full sentences. Cough noted HEART: Regular rate and rhythm. No murmur heard. SKIN: Warm, dry, no rash. NEURO: Alert and oriented x3. PSYCH: Normal mood and affect Course Course Emergency Course: Patient is aware of diagnosis, understands and agrees to treatment plan. Anticipatory guidance given. Patient agrees to follow-up as directed and is aware of reasons to seek care at the emergency department. Portions of this record may have been created with voice recognition software Level of Care: Express Care Visit Vital Signs Vital signs: Reviewed. JANE GARCIA/Inocencio Dutton
[2021-12-02 10:55] VITALS: BP 134/89; PULSE 90; RESP 18; TEMP 36.4; O2SAT 100
== END 2021-12-02 11:49 | disposition home or self-care (01) ==
PROVIDERS: Emergency Provider Nurse Practitioner; PCP Family Medicine Adolescent Medicine
DX: J32.9 Chronic sinusitis, unspecified (principal); J40 Bronchitis, not specified as acute or chronic; Z87.891 Personal history of nicotine dependence; F12.90 Cannabis use, unspecified, uncomplicated; J45.909 Unspecified asthma, uncomplicated; F41.1 Generalized anxiety disorder
CPT/HCPCS: 99213; G0463

== ENCOUNTER 2022-02-26 11:04 | Outpatient (CLI) | payer OTHER, SELFPAY ==
--- NOTE | ~2022-02-26 | XR_ITS ---
XR lumbar spine 2-3V DATE: 02/26/2022 11:21 INDICATION: Low back pain TECHNIQUE: AP, lateral, coned lateral lumbosacral views COMPARISON: None FINDINGS: There is minimal levoscoliosis of the lower thoracic and lumbar spine. Normal alignment of the lumbar vertebrae. No fracture or bone destruction or spondylolisthesis lumbar pedicles are intact.. Moderate to moderately severe degenerative disc disease at L5-S1. The remaining lumbar interspaces ar e well preserved. The sacroiliac joints appear normal. IMPRESSION: Mild levoscoliosis Moderate to moderately severe degenerative disc disease at L5-S1 Reviewed, dictated and finalized at location A.
== END 2022-02-26 11:05 | disposition home or self-care (01) ==
PROVIDERS: PCP Family Medicine Adolescent Medicine; Visit Provider Physician Assistant
DX: M51.37 Other intervertebral disc degeneration, lumbosacral region (principal)
CPT/HCPCS: 72100

== ENCOUNTER 2022-05-26 15:04 | Emergency (ER) | payer OTHER, SELFPAY ==
--- NOTE | ~2022-05-26 | US_ITS ---
EXAMINATION: US venous doppler LE RT DATE: 05/26/2022 16:16 INDICATION: Right lower cavity pain and swelling. TECHNIQUE: Grayscale images without and with compression and Doppler images of the right lower extrem ity veins were obtained. COMPARISON: None FINDINGS: The right common femoral vein, profunda (deep) femoral vein, femoral vein, popliteal vein, peroneal v ein, posterior tibial veins, and greater saphenous vein are patent. IMPRESSION: 1. Patent right lower extremity veins. No evidence of deep venous thrombosis. Reviewed, dictated and finalized at location K.
[2022-05-26 15:28] VITALS: BP 139/85; PULSE 82; RESP 16; TEMP 37.1; O2SAT 100
--- NOTE | 2022-05-26 16:52 | ED.EXTPRO ---
HPI - Extremity Problem General Chief complaint: Extremity Problem,Nontraumatic Stated complaint: RT lower leg pain Time Seen by Provider: 05/26/22 16:43 Source: patient Mode of arrival: ambulatory Limitations: no limitations History of Present Illness HPI Narrative: The patient is a 36-year-old female with a history of OCD and anxiety, presenting to the emergency department for evaluation of worsening right lower extremity pain. Patient states that she had COVID approximately 6 weeks ago, did not require hospitalization for this. She states that she has developed right lower extremity pain in her right thigh and on the front of her right lower extremity/hernández area over the past few days. It seems to be intermittent in nature. She denies swelling, bruising, redness. She states that at 1 point her right knee did feel warm to touch but denied any skin changes. She denies recent fall or injury. She denies sores or history of skin infection. She denies recent long car or air travel. She denies history of coagulopathy. Patient denies any chest pain, shortness of breath, palpitations, fever, cough. Related Data Home Medications Medication Instructions Recorded Confirmed albuterol sulfate 90 mcg/actuation 2 inh inhalation PRN PRN Shortness 10/24/21 05/05/22 aerosol inhaler Of Breath Or Wheezing Allergies Allergy/AdvReac Type Severity Reaction Status Date / Time No Known Allergies Allergy Verified 05/26/22 15:30 Review of Systems Review of Systems: CONSTITUTIONAL: Denies fever CARDIOVASCULAR: Denies chest pain RESPIRATORY: Denies cough or dyspnea. GASTROINTESTINAL: Denies abdominal pain SKIN: Denies rash MUSCULOSKELETAL: Denies back pain, reports intermittent right lower extremity pain, denies hermes knee or ankle pain NEUROLOGIC: Denies headache, numbness, or weakness. PSYCHIATRIC: Reports anxiety PMFSH Past Medical History Medical History Acute sinus infection Anxiety and depression Asthma Generalized anxiety disorder Vaginal delivery Surgical History Surgical History History of bunionectomy History of foot surgery Bilateral Status post wisdom tooth extraction Family History Family History Grandparent Acute myocardial infarction Asthma Depression Diabetes mellitus Heart disease Other Breast cancer Family history of malignant neoplasm of breast Mother Depression Father Depression Social History Social History Smoking status: Former smoker Smoking end date: 09/16/20 Alcohol intake: current Substance use type: marijuana Gender identity (if verbalized by the patient): Female Exam Narrative: GENERAL: Awake, alert, conversant HEAD: Normocephalic, atraumatic. EYES: PERRLA and EOMI. ENT: Nares clear, no rhinorrhea or epistaxis. Mucous membranes moist. NECK: Supple. CHEST: No respiratory distress, breathing even and non labored HEART: Regular rate, sinus rhythm ABDOMEN:Non distended, non tender EXTREMITIES: Normal range of motion. No edema. No calf tenderness bilaterally. No streaking erythema. No knee effusions bilaterally. Full flexion extension of the bilateral knees without limitation. SKIN: Warm, dry, no rash. No lesions or abrasions. NEURO:No focal deficits. Alert and oriented x3 Course Vital Signs Vital signs: Vital Signs Temperature 37.1 C 05/26/22 15:28 Pulse Rate 82 05/26/22 15:28 Respiratory Rate 16 05/26/22 15:28 Blood Pressure 139/85 05/26/22 15:28 Pulse Oximetry 100 05/26/22 15:28 Temperature 37.1 C 05/26/22 15:28 Pulse Rate 82 05/26/22 15:28 Respiratory Rate 16 05/26/22 15:28 Blood Pressure 139/85 05/26/22 15:28 Pulse Oximetry 100 05/26/22 15:28 MDM - Extremity (Nontraumatic) MDM Narrative M
== END 2022-05-26 17:17 | disposition home or self-care (01) ==
PROVIDERS: Emergency Provider Emergency Medicine; PCP Family Medicine Adolescent Medicine
DX: M79.604 Pain in right leg (principal); J45.909 Unspecified asthma, uncomplicated; Z86.16 Personal history of COVID-19; Z87.891 Personal history of nicotine dependence
CPT/HCPCS: 93971; 99284

== ENCOUNTER 2022-10-28 13:08 | Emergency (ER) | payer OTHER, SELFPAY ==
[2022-10-28 13:14] VITALS: BP 137/91; PULSE 99; RESP 20; TEMP 36.5; O2SAT 99
--- NOTE | 2022-10-28 13:24 | ED.URI ---
HPI - URI/Sore Throat General Chief Complaint: Upper Respiratory Infection Stated Complaint: Body Aches,Fatigue,Sore throat,Upset Stomach Time Seen by Provider: 10/28/22 13:12 History of Present Illness HPI Narrative: 37-year-old female presented for complaint of sore throat and upset stomach, onset this morning. Headache last night. 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 She has had about 5 loose BMs. Then she developed a sore throat, stating when she looked in the back of her throat she had white patches and her tonsils were swollen. Endorses history of strep infections, last one being 10 years ago. She denies changes in medicines or foods. Reports chronic sinus drainage, taking zyrtec and flonase. Denies abdominal pain nausea, vomiting, Urinary complaints, fevers or chills. LMP 10/17/22. Related Data Home Medications Medication Instructions Recorded Confirmed cetirizine 10 mg capsule (Zyrtec) 10 mg PO DAILY 10/28/22 10/28/22 fluticasone propionate 50 2 spray intranasal DAILY 10/28/22 10/28/22 mcg/actuation nasal spray,suspension Allergies Allergy/AdvReac Type Severity Reaction Status Date / Time No Known Allergies Allergy Verified 10/28/22 13:09 Review of Systems Review of Systems: CONSTITUTIONAL: Denies body aches, fever, chills, or sweats. EYES: Denies visual changes, redness, or discharge. ENT: Denies rhinorrhea, congestion, or otalgia. CARDIOVASCULAR: Denies chest pain, palpitations, or edema. RESPIRATORY: Denies dyspnea. GASTROINTESTINAL: Denies abdominal pain, nausea, vomiting, or diarrhea. SKIN: Denies rash, itching, or wounds. MUSCULOSKELETAL: Denies back pain, joint pain, or myalgia. NEUROLOGIC: Denies headache PMFSH Past Medical History Medical History Acute sinus infection Anxiety and depression Asthma Generalized anxiety disorder Vaginal delivery Surgical History Surgical History History of bunionectomy History of foot surgery Bilateral Status post wisdom tooth extraction Family History Family History Grandparent Acute myocardial infarction Asthma Depression Diabetes mellitus Heart disease Other Breast cancer Family history of malignant neoplasm of breast Mother Depression Father Depression Social History Social History Smoking status: Former smoker Smoking end date: 09/16/20 Alcohol intake: current Substance use: current Substance use type: marijuana Lack of Transportation: No Lack of Food: Never True Current Housing: I Have Housing Concerned About Future Housing: No Difficulty Paying Gas/Electric Bills: No Difficulty Paying for Meds: No Currently Unemployed: No Education: High School Diploma/GED Living arrangements: with family Occupation/Education: occupation Gender identity (if verbalized by the patient): Female Sexual Orientation (if Verbalized by the Patient): Straight or Heterosexual Spiritual care concerns: No Exam Narrative: GENERAL: well-appearing, no acute distress. EYES: conjunctivae clear ENT: Mucous membranes moist. TMs pearly christopher with normal light reflex bilaterally; no tragal tenderness. Oropharynx erythematous without lesions. Tonsils enlarged 2+ without exudate. No drooling, no hoarseness, no trismus, uvula midline. No tripod positioning, hot potato voice, or soft palate swelling. NECK: Supple. No lymphadenopathy CHEST: Clear to auscultation, breath sounds equal. No respiratory distress, speaks in full sentences. HEART: Regular rate and rhythm. No murmur heard. SKIN: Warm, dry, no rash. NEURO: Alert and oriented x3. Course Course Emergency Course: Patient is aware of diagnosis, understands and agrees to treatment plan. Jessika bowie
== END 2022-10-28 13:33 | disposition home or self-care (01) ==
PROVIDERS: Emergency Provider Nurse Practitioner Family; PCP Family Medicine Adolescent Medicine
DX: B34.9 Viral infection, unspecified (principal); Z87.891 Personal history of nicotine dependence; J45.909 Unspecified asthma, uncomplicated; F41.9 Anxiety disorder, unspecified; F32.A Depression, unspecified
CPT/HCPCS: 87081; 87880; 99213; G0463

== ENCOUNTER 2023-04-12 09:52 | Emergency (ER) | payer OTHER, SELFPAY ==
--- NOTE | ~2023-04-12 | XR_ITS ---
XR chest 2V DATE: 04/12/2023 11:14 INDICATION: Sharp left scapular back pain TECHNIQUE: 2 views, PA and lateral projections COMPARISON: 11/09/2021 PA and lateral views FINDINGS: Normal heart size. No hilar or mediastinal enlargement. No pulmonary infiltrate or consolid ation, pleural effusion or pulmonary vascular congestion or pneumothorax. IMPRESSION: Reviewed, dictated and finalized at location B. IMPRESSION:
[2023-04-12 09:58] VITALS: BP 129/86; PULSE 87; RESP 17; TEMP 36.3; O2SAT 100
--- NOTE | 2023-04-12 10:30 | ECG_ITS ---
Measurements Intervals [place] Rate: 61 P: 51 [place]: 196 QRS: 11 QRSD: 121 T: 14 QT: 421 QTc: 425 Interpretive Statements SINUS RHYTHM POSSIBLE RIGHT VENTRICULAR CONDUCTION DELAY [RSR (QR) IN V1/V2] NONSPECIFIC T-WAVE ABNORMALITY ABNORMAL ECG COMPARED TO ECG 11/09/2021 13:01:17 NO SIGNIFICANT CHANGES Electronically Signed On 04-12-2023 12:05:20 CDT by Dedrick Marcial M.D.
--- NOTE | 2023-04-12 10:31 | ED.BACK ---
HPI - Back Pain/Injury General Chief Complaint: Back Pain/Injury Stated Complaint: medial left back pain History of Present Illness HPI Narrative: Pt presents with sudden onset of severe left back pain under shoulder blade which is worse with a deep breath. Pt denies cough or fever or urinary symptoms. Pt denies calf pain. Pt has not been on any long trips or had recent surgery. Pt does not take BCP. Related Data Home Medications Medication Instructions Recorded Confirmed cetirizine 10 mg capsule (Zyrtec) 10 mg PO DAILY 10/28/22 10/28/22 fluticasone propionate 50 2 spray intranasal DAILY 10/28/22 10/28/22 mcg/actuation nasal spray,suspension Allergies Allergy/AdvReac Type Severity Reaction Status Date / Time No Known Allergies Allergy Verified 10/28/22 13:09 Review of Systems Review of Systems: All systems reviewed & are unremarkable except as noted in HPI and below PMFSH Past Medical History Medical History Acute sinus infection Anxiety and depression Asthma Generalized anxiety disorder Vaginal delivery Surgical History Surgical History History of bunionectomy History of foot surgery Bilateral Status post wisdom tooth extraction Family History Family History Grandparent Acute myocardial infarction Asthma Depression Diabetes mellitus Heart disease Other Breast cancer Family history of malignant neoplasm of breast Mother Depression Father Depression Social History Social History Smoking status: Former smoker Smoking end date: 09/16/20 Alcohol intake: current Substance use: current Substance use type: marijuana Lack of Transportation: No Lack of Food: Never True Current Housing: I Have Housing Concerned About Future Housing: No Difficulty Paying Gas/Electric Bills: No Difficulty Paying for Meds: No Currently Unemployed: No Education: High School Diploma/GED Living arrangements: with family Occupation/Education: occupation Gender identity (if verbalized by the patient): Female Sexual Orientation (if Verbalized by the Patient): Straight or Heterosexual Spiritual care concerns: No Exam Const: General: healthy appearing Nutritional Appearance: well nourished Orientation/consciousness: patient oriented x3 Limitations: no limitations Neck: Neck: normal visual inspection Chest: Chest palpation & inspection: normal inspection of the chest Resp: Effort & Inspection: normal respiratory effort Auscultation: clear to auscultation bilaterally Cardio: Rate: regular rate Rhythm: regular rhythm GI: Auscultation: normal bowel sounds : General: Yes no CVA tenderness Back/Spine/Pelvis: Other: some paraspinous tenderness and mild spasm to rhomboid muscles on left near snoulder blade Skin: General skin exam: normal color Rashes: no rashes Neuro: General: patient oriented x3, moves all extremities, no focal motor deficits and CN's II-XI intact bilaterally Speech: normal speech Extrem: General: normal to inspection and no clubbing, cyanosis or edema Other: sudheer's neg Psych: Mental Status: mental status grossly normal Affect: normal affect Attitude: cooperative Course Vital Signs Vital signs: Vital Signs Temperature 97.3 F L 04/12/23 09:58 Pulse Rate 87 04/12/23 09:58 Respiratory Rate 17 04/12/23 09:58 Blood Pressure 129/86 04/12/23 09:58 Pulse Oximetry 100 04/12/23 09:58 Oxygen Delivery Room Air 04/12/23 09:58 Temperature 97.3 F L 04/12/23 09:58 Pulse Rate 61 04/12/23 12:39 Respiratory Rate 18 04/12/23 12:39 Blood Pressure 108/87 04/12/23 12:39 Pulse Oximetry 100 04/12/23 12:39 Oxygen Delivery Room Air 04/12/23 09:58 MDM - Back Pain/Inj
[2023-04-12] MEDS: KETOROLAC 15 MG/ML VIAL (*BKC) IV PUSH (10:49)
[2023-04-12 10:54] LABS: Basophils Absolute Auto 0.1 K/mm3 (0.0-0.1); Basophils Percent Auto 0.9 % (0.2-1.2); Eosinophils Absolute Auto 0.2 K/mm3 (0-0.3); Hematocrit 39.9 % (37.0-47.0); Hemoglobin 13.8 g/dL (12.0-15.0); Immature Granulocyte Absolute 0.03 K/mm3 (0.00-0.031); Immature Granulocyte Percent A 0.4 % (0-0.5); Lymphocytes Absolute Auto 1.71 K/mm3 (0.9-3.2); Lymphocytes Percent Auto 24.6 % (18.3-44.2); Mean Corpuscular HGB Conc 34.6 g/dl (32-36); Mean Corpuscular Hemoglobin 31.2 pg (26-34); Mean Corpuscular Volume 90.3 fl (80-100); Mean Platelet Volume 9.5 fl (7.4-10.4); Monocytes Absolute Auto 0.5 K/mm3 (0.1-0.6); Monocytes Percent Auto 7.6 % (2.6-8.5); Neutrophils Absolute Auto 4.4 K/mm3 (1.3-6.7); Neutrophils Percent Auto 63.5 % (45.5-73.1); Platelet Count Result 243 k/mm3 (150-375); Red Blood Count 4.42 M/mm3 (4.2-5.4); Red Cell Distribution Width 12.3 % (11.5-14.5); White Blood Count 6.9 K/mm3 (4.5-10.0)
[2023-04-12 11:01] LABS: Alanine Aminotransferase 26 U/L (6-35); Albumin Level 4.3 g/dL (3.5-5.1); Alkaline Phosphatase 60 U/L (38-126); Anion Gap 5 mmol/L (8-16); Aspartate Amino Transferase 25 U/L (14-36); Bilirubin,Total 0.6 mg/dL (0.2-1.3); Blood Urea Nitrogen 12 mg/dL (7-17); Calcium 8.7 mg/dL (8.4-10.2); Carbon Dioxide 29 mmol/L (22-30); Chloride 102 mmol/L (98-107); Estimated CRCL calculation 119 ml/min; Estimated Glomerular Filt Rate > 60; Glucose 85 mg/dL (65-110); Potassium 3.7 mmol/L (3.4-5.0); Sodium 136 mmol/L (137-145)
[2023-04-12 11:03] LABS: Prothrombin Time 13.2 Seconds (11.1-14.7)
[2023-04-12 11:04] LABS: Partial Thromboplastin Time 29.3 SECONDS (22.3-36.8)
[2023-04-12 11:08] LABS: D Dimer 0.34 ug/mL (<0.48)
[2023-04-12 12:39] VITALS: BP 108/87; PULSE 61; RESP 18; O2SAT 100
== END 2023-04-12 12:57 | disposition home or self-care (01) ==
PROVIDERS: Emergency Provider Emergency Medicine; PCP Family Medicine Adolescent Medicine
DX: S29.012A Strain of muscle and tendon of back wall of thorax, initial encounter (principal); F41.9 Anxiety disorder, unspecified; F32.A Depression, unspecified; J45.909 Unspecified asthma, uncomplicated; X58.XXXA Exposure to other specified factors, initial encounter
CPT/HCPCS: 36415; 71046; 80053; 85025; 85380; 85610; 85730; 93005; 96374; 99284; J1885

== ENCOUNTER 2023-09-18 11:42 | Emergency (ER) | payer OTHER, SELFPAY ==
[2023-09-18 11:54] VITALS: BP 126/92; PULSE 85; RESP 18; TEMP 36.7; O2SAT 100
[2023-09-18 11:55] VITALS: BP 126/92; PULSE 85; RESP 18; TEMP 36.7; O2SAT 100
--- NOTE | 2023-09-18 12:17 | ED.HA ---
HPI - Headache General Chief Complaint: Upper Respiratory Infection Stated Complaint: headache Time Seen by Provider: 09/18/23 12:03 Source: patient and RN notes reviewed Mode of arrival: ambulatory Limitations: no limitations History of Present Illness HPI Narrative: Patient presents today complaining of a right-sided frontal and parietal headache since yesterday that she describes as pressure, as well as some right eye irritation. Currently rates her pain 6/10 and took some Tylenol and ibuprofen yesterday with some relief. States this is not her worst headache ever. She has not taken any [id number] medication today prior to arrival. Denies vision changes, nausea vomiting, photophobia, dizziness, any URI symptoms, numbness or tingling in the extremities. Patient states she does have headaches frequently, but has never been diagnosed with migraines. She does have significant anxiety for which she takes sertraline daily and lorazepam as needed. States she is very anxious today, but held her lorazepam until she can be fully evaluated at [facility] this morning. Related Data Home Medications Medication Instructions Recorded Confirmed cetirizine 10 mg capsule (Zyrtec) 10 mg PO DAILY 10/28/22 09/18/23 fluticasone propionate 50 2 spray intranasal DAILY 10/28/22 09/18/23 mcg/actuation nasal spray,suspension Allergies Allergy/AdvReac Type Severity Reaction Status Date / Time No Known Allergies Allergy Verified 09/18/23 11:54 Review of Systems Review of Systems: CONSTITUTIONAL: Denies body aches, fever, chills, or sweats. EYES: Denies visual changes, redness, or discharge.+ right eye irritation ENT: Denies rhinorrhea, congestion, sore throat, or otalgia. CARDIOVASCULAR: Denies chest pain, palpitations, or edema. RESPIRATORY: Denies cough or dyspnea. GASTROINTESTINAL: Denies abdominal pain, nausea, vomiting, or diarrhea. GENITOURINARY: Denies dysuria or hematuria. SKIN: Denies rash, itching, or wounds. MUSCULOSKELETAL: Denies back pain, joint pain, or myalgia. NEUROLOGIC: Denies numbness, tingling, or weakness.+ headache PSYCH: + anxiety PMFSH Past Medical History Medical History Anxiety and depression Asthma Generalized anxiety disorder Vaginal delivery Surgical History Surgical History History of bunionectomy History of foot surgery Bilateral Status post wisdom tooth extraction Family History Family History Grandparent Acute myocardial infarction Asthma Depression Diabetes mellitus Heart disease Other Breast cancer Family history of malignant neoplasm of breast Mother Depression Father Depression Social History Social History Smoking status: Former smoker Smoking end date: 09/16/20 Alcohol intake: current Substance use: current Substance use type: marijuana Lack of Transportation: No Lack of Food: Never True Current Housing: I Have Housing Concerned About Future Housing: No Difficulty Paying Gas/Electric Bills: No Difficulty Paying for Meds: No Currently Unemployed: No Education: High School Diploma/GED Living arrangements: with family Occupation/Education: occupation Gender identity (if verbalized by the patient): Female Sexual Orientation (if Verbalized by the Patient): Straight or Heterosexual Spiritual care concerns: No Comments At time of signature, I have reviewed and agree with nursing past medical, surgical, social and family history unless otherwise noted. Please see nursing chart for further information. There is no relevant family history pertinent to the presenting complaint Exam Narrative: GENERAL: Well-appearing, well-nourished, very tearful. HEAD: Normocephalic, atraumati
[2023-09-18] MEDS: KETOROLAC (*BKC) 60 MG/2 ML VIAL IM (12:25)
== END 2023-09-18 13:28 | disposition home or self-care (01) ==
PROVIDERS: Emergency Provider Nurse Practitioner; PCP Family Medicine Adolescent Medicine
DX: R51.9 Headache, unspecified (principal); Z87.891 Personal history of nicotine dependence; F12.90 Cannabis use, unspecified, uncomplicated; J45.909 Unspecified asthma, uncomplicated
CPT/HCPCS: 96372; 99213; G0463; J1885

== ENCOUNTER 2023-10-10 09:54 | Emergency (ER) | payer OTHER, SELFPAY ==
--- NOTE | 2023-10-10 10:03 | ED.URI ---
HPI - URI/Sore Throat General Chief Complaint: Upper Respiratory Infection Stated Complaint: SINUS CONGESTION/HEADACHE Time Seen by Provider: 10/10/23 10:03 Source: patient Mode of arrival: ambulatory Limitations: no limitations History of Present Illness HPI Narrative: Pati is a 38-year-old female patient presenting to the clinic today with complaints of sinus congestion, sore throat, ear pain, and headache times 10 days. She reports 10 days ago shoe tested positive for COVID. Has had sinus congestion ever since. No known fever or chills. MD elicited complaint: cough, sore throat, rhinorrhea, nasal congestion and sinus pain Related Data Home Medications Medication Instructions Recorded Confirmed cetirizine 10 mg capsule (Zyrtec) 10 mg PO DAILY 10/28/22 10/10/23 fluticasone propionate 50 2 spray intranasal DAILY 10/28/22 10/10/23 mcg/actuation nasal spray,suspension Allergies Allergy/AdvReac Type Severity Reaction Status Date / Time No Known Allergies Allergy Verified 10/10/23 10:18 Review of Systems Review of Systems: Pertinent positives per HPI. Patient denies any fever, chills, rash, visual changes, dizziness, cough, shortness of breath, chest pain, palpitations, nausea, vomiting, diarrhea, constipation, abdominal pain, or any urinary issues. [facility] Past Medical History Medical History Anxiety and depression Asthma Generalized anxiety disorder Vaginal delivery Surgical History Surgical History History of bunionectomy History of foot surgery Bilateral Status post wisdom tooth extraction Family History Family History Grandparent Acute myocardial infarction Asthma Depression Diabetes mellitus Heart disease Other Breast cancer Family history of malignant neoplasm of breast Mother Depression Father Depression Social History Social History Smoking status: Former smoker Smoking end date: 09/16/20 Alcohol intake: current Substance use: current Substance use type: marijuana Lack of Transportation: No Lack of Food: Never True Current Housing: I Have Housing Concerned About Future Housing: No Difficulty Paying Gas/Electric Bills: No Difficulty Paying for Meds: No Currently Unemployed: No Education: High School Diploma/GED Living arrangements: with family Occupation/Education: occupation Gender identity (if verbalized by the patient): Female Sexual Orientation (if Verbalized by the Patient): Straight or Heterosexual Spiritual care concerns: No Comments At the time of my signature, I reviewed and agree with the nursing past medical, surgical, social, and family history. There is no relevant family history pertinent to the patient complaint. Exam Narrative: General: Well-developed, well nourished, in no apparent distress Head: Normocephalic, atraumatic Eyes: Pupils equally round and reactive to light bilaterally, EOM intact, sclera and conjunctive clear, no discharge, lids normal Ears: TMs intact with mild bulging bilaterally, ear canals clear, no drainage, grossly hearing normal. Nose: Nares patent, green nasal discharge, moderate inflammation, ethmoid and maxillary sinus tenderness. Mouth: Oral pharynx without lesions or masses, good dentition, MMM. Neck: Supple, trachea midline, no enlargement of anterior or posterior cervical nodes, no thyroid masses or goiter palpable. Cardio: Regular rate and rhythm, s1 and s2 normal, no murmur appreciated. Resp: Clear to auscultation bilaterally, no rhonchi, rales, wheezing or rubs Course Course Emergency Course: Portions of this record may have been created with voice recognition software. Level of Care: Express Care Visit Vital Signs Vital signs: V
[2023-10-10 10:20] VITALS: BP 107/81; PULSE 83; RESP 20; TEMP 36.3; O2SAT 100
== END 2023-10-10 10:39 | disposition home or self-care (01) ==
PROVIDERS: Emergency Provider Nurse Practitioner Family; PCP Family Medicine Adolescent Medicine
DX: J01.90 Acute sinusitis, unspecified (principal); Z87.891 Personal history of nicotine dependence; F12.90 Cannabis use, unspecified, uncomplicated; J45.909 Unspecified asthma, uncomplicated; F41.9 Anxiety disorder, unspecified; F32.A Depression, unspecified
CPT/HCPCS: 99213; G0463

== ENCOUNTER 2024-07-05 14:42 | Emergency (ER) | payer OTHER, SELFPAY ==
[2024-07-05 14:51] VITALS: BP 126/90; PULSE 76; RESP 16; TEMP 36.1; O2SAT 100
--- NOTE | 2024-07-05 14:51 | ED.UPPEXIN ---
HPI - Extremity Injury (Upper) General Chief Complaint: Skin/Abscess/Foreign Body Stated Complaint: LT Hand Injury Time Seen by Provider: 07/05/24 14:51 Source: patient Mode of arrival: ambulatory Limitations: no limitations History of Present Illness HPI narrative: 38 yo F presents with laceration to L thumb. Cut herself two nights ago while slicing at an apple at home. Cleaned at home and has been wearing a bandaid. 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 Wound started throbbing this AM. Pt concerned for infection. All systems reviewed and negative except as noted above. Related Data Home Medications Medication Instructions Recorded Confirmed cetirizine 10 mg capsule (Zyrtec) 10 mg PO DAILY 10/28/22 07/05/24 Allergies Allergy/AdvReac Type Severity Reaction Status Date / Time No Known Allergies Allergy Verified 07/05/24 14:45 Review of Systems Review of Systems: CONSTITUTIONAL: Denies fever, chills, or sweats. EYES: Denies visual changes, redness, or discharge. ENT: Denies rhinorrhea, congestion, sore throat, or otalgia. CARDIOVASCULAR: Denies chest pain, palpitations, or edema. RESPIRATORY: Denies cough or dyspnea. GASTROINTESTINAL: Denies abdominal pain, nausea, vomiting, or diarrhea. GENITOURINARY: Denies dysuria or hematuria. SKIN: Denies rash or itching. reports laceration to L thumb MUSCULOSKELETAL: Denies back pain, joint pain, or myalgia. NEUROLOGIC: Denies headache, numbness, or weakness. PSYCHIATRIC: Denies anxiety or depression. All other systems reviewed are negative, except as documented in HPI. [facility] Past Medical History Medical History Anxiety and depression Asthma Generalized anxiety disorder Vaginal delivery Surgical History Surgical History History of bunionectomy History of foot surgery Bilateral Status post wisdom tooth extraction Family History Family History Grandparent Acute myocardial infarction Asthma Depression Diabetes mellitus Heart disease Other Breast cancer Family history of malignant neoplasm of breast Mother Depression Father Depression Social History Social History (Reviewed 03/24/24 @ 09:39 by MARCOS Fall Smoking status: Former smoker Smoking end date: 09/16/20 Alcohol intake: current Substance use: current Substance use type: marijuana Lack of Transportation: No Lack of Food: Never True Current Housing: I Have Housing Concerned About Future Housing: No Difficulty Paying Gas/Electric Bills: No Difficulty Paying for Meds: No Currently Unemployed: No Education: High School Diploma/GED Living arrangements: with family Occupation/Education: occupation Gender identity (if verbalized by the patient): Female Sexual Orientation (if Verbalized by the Patient): Straight or Heterosexual Spiritual care concerns: No Comments At time of signature, agree with nursing past medical, surgical, social and family history. There is no relevant family history pertinent to the presenting complaint. Exam Narrative: GENERAL: This is a well-nourished, well-developed patient, in no apparent distress. HEAD: normocephalic, atraumatic. EYES: PERRL. Sclera clear/white. Vision is grossly intact. EARS: External ears normal NOSE: External nose normal NECK: Neck supple, non-tender without lymphadenopathy, masses or thyromegaly. CARDIOVASCULAR: Regular rate and rhythm without murmurs, gallops, or rubs. RESPIRATORY: Clear to auscultation. Breath sounds equal bilaterally. No wheezes, rales, or rhonchi. SKIN: warm, Dry, intact with no suspicious lesions or rash, good texture and turgor. small laceration to medial aspect L thumb, less than 1 cm. healing well. mild erythema and swelling. no drainage. NEURO: awake, alert, and oriented to person, place and time. There were no obvious focal neurologic abnormalities. EXTREMITIES: No joint tenderness, effusion, or edema noted. Course Course Level of Care: Express Care Visit Vital Signs Vital signs: Reviewed MDM - Extremity Injury (Upper) MDM Narrative Medical decision making narrative: mild erythema and swelling to laceration to left thumb. Will prescribe Keflex and mupirocin ointment. Afebrile. Patient well-appearing, nontoxic. Range of motion and neurovascularly intact left. Patient is aware of diagnosis, understands and agrees to treatment plan. Anticipatory guidance given. Patient agrees to follow-up as directed and is aware of reasons to seek care at the emergency department. Portions of this record may have been created with voice recognition software Discharge Plan Discharge Clinical Impression: Laceration of left thumb with infection Qualifiers: Encounter type: initial encounter Qualified Code(s): S61.012A - Laceration without foreign body of left thumb without damage to nail, initial encounter Patient Disposition: Home, Self-Care Condition: Stable Instructions: Antibiotic Form, Finger Laceration (ED) Additional Instructions: Take antibiotic as prescribed until gone. Wash normally with soap and water. See your doctor if not improving. Prescriptions: New cephalexin 500 mg capsule 500 mg PO BID 7 Days Qty: 14 0RF mupirocin 2 % ointment 1 applic topical BID 7 Days Qty: 15 0RF No Action Zyrtec 10 mg Capsule 10 mg PO DAILY buspirone 10 mg tablet 10 mg PO BID Qty: 60 6RF sertraline 100 mg tablet 100 mg PO DAILY Qty: 90 2RF Follow-up/Referrals: Layton Doan MD [Primary Care Provider] - Time of Disposition: 14:58
== END 2024-07-05 15:02 | disposition home or self-care (01) ==
PROVIDERS: Emergency Provider Nurse Practitioner Family; PCP Family Medicine Adolescent Medicine
DX: S61.012A Laceration without foreign body of left thumb without damage to nail, initial encounter (principal); L08.9 Local infection of the skin and subcutaneous tissue, unspecified; W45.8XXA Other foreign body or object entering through skin, initial encounter; Y93.G1 Activity, food preparation and clean up; Z87.891 Personal history of nicotine dependence; F12.90 Cannabis use, unspecified, uncomplicated; J45.909 Unspecified asthma, uncomplicated
CPT/HCPCS: 99213; G0463

== ENCOUNTER 2024-07-31 09:37 | Emergency (ER) | payer OTHER, SELFPAY ==
[2024-07-31 10:06] VITALS: BP 125/82; PULSE 95; RESP 16; TEMP 36.6; O2SAT 100
--- NOTE | 2024-07-31 10:24 | ED_ITS ---
HPI - URI/Sore Throat General Chief Complaint: Upper Respiratory Infection Stated Complaint: sinus infection Time Seen by Provider: 07/31/24 10:31 Source: patient, RN notes reviewed and old records reviewed Mode of arrival: ambulatory Limitations: no limitations History of Present Illness HPI Narrative: 38-year-old female presents to the [facility] with concerns of a sinus infection. Patient reports symptoms started over 10 days. Has tried [id number] products with relief. Patient reports sinus congestion, pressure, sore throat, intermittent cough Related Data Home Medications ?Medication ?Instructions ?Recorded ?Confirmed ?Last Taken ?Type cetirizine 10 mg capsule (Zyrtec) 10 mg PO DAILY 10/28/22 07/05/24 Unknown History fluticasone propionate 50 1 spray intranasal ONCE 07/31/24 Unknown History mcg/actuation nasal spray,suspension (24 Hour Allergy Relief) Allergies Allergy/AdvReac Type Severity Reaction Status Date / Time No Known Allergies Allergy Verified 07/31/24 10:31 Review of Systems Review of Systems: All systems reviewed & are unremarkable except as noted in HPI and below Constitutional: Constitutional: Reports as per HPI and Reports body ache(s) ENT: Reports as per HPI Cardiovascular: Cardiovascular: Reports no additional cardiovascular compla ints, Denies chest pain and Denies dyspnea Respiratory: Respiratory: Reports as per HPI, Denies chest congestion, Reports cough and Denies dyspnea Gastrointestinal: Gastrointestinal: Reports no additional gastrointestinal complaints, Denies abdominal pain, Denies nausea and Denies vomiting Musculoskeletal: Musculoskeletal: Reports no additional musculoskeletal complaints Integumentary/Breasts: Skin/Breast: Reports system reviewed and no additional complaints, except as docu PMFSH Past Medical History Medical History Generalized anxiety disorder Vaginal delivery Asthma Anxiety and depression Surgical History Surgical History History of foot surgery Bilateral History of bunionectomy Status post wisdom tooth extraction Family History Family History Grandparent Acute myocardial infarction Asthma Depression Diabetes mellitus Heart disease Other Breast cancer Family history of malignant neoplasm of breast Mother Depression Father Depression Social History Social History (Reviewed 07/31/24 @ 20:32 by MARCOS Benties Smoking status: Former smoker Smoking end date: 09/16/20 Alcohol intake: current Substance use: current Substance use type: marijuana Lack of Transportation: No Lack of Food: Never True Current Housing: I Have Housing Concerned About Future Housing: No Difficulty Paying Gas/Electric Bills: No Difficulty Paying for Meds: No Currently Unemployed: No Education: High School Diploma/GED Living arrangements: with family Occupation/Education: occupation Gender identity (if verbalized by the patient): Female Sexual Orientation (if Verbalized by the Patient): Straight or Heterosexual Spiritual care concerns: No Comments At the time of my signature, I reviewed and agree with the nursing past medical, surgical, social, and family history. There is no relevant family history pertinent to the patient complaint. Exam Const: General: cooperative, healthy appearing, comfortable, no acute distress, well developed, alert and well nourished Nutritional Appearance: well nourished Orientation/consciousness: patient oriented x3 Limitations: no limitations HENMT: Head: normal to inspection Ears: hearing grossly normal bilaterally, external ears normal, TM's normal bilaterally, EAC's normal, mastoids normal and no periauricular adenopathy Face/Nose/Sinus: Normal external nose present, normal facial exam and face symmetric Face and sinus: normal facial exam, face symmetric, no ecchymosis, no erythema and sinus tenderness Mouth: Yes Normal oral and palatal mucosa present, Yes lip normal and Yes tongue normal Throat: posterior oropharynx normal, uvula midline and no uvular edema Eyes: General: appearance normal, both eyes and all related structures Alignment and Position: alignment normal Periorbital: periorbital findings normal Neck: Neck: normal visual inspection, full ROM, no lymphadenopathy and no meningeal signs Chest: Chest palpation & inspection: normal inspection of the chest Resp: Effort & Inspection: normal respiratory effort and able to speak in complete sentences Auscultation: clear to auscultation bilaterally, no crackles, no rales, no rhonchi and no wheezes Cardio: Rate: regular rate Skin: General skin exam: normal color and no rashes or lesions noted Lesions: no lesions Rashes: no rashes Wounds: no wounds Neuro: General: patient oriented x3, gait normal, tone normal, moves all extremities and no meningeal signs Cognition (Neuro): normal cognition Speech: normal speech Gait exam (Neuro): Normal gait present Extrem: General: normal to inspection, full ROM, capillary refill normal and normal gait Psych: Appearance: grossly normal and well kempt Mental Status: mental status grossly normal Speech and movement: Normal speech and movement present and Clear speech present Affect: normal affect Attitude: cooperative Course Course Level of Care: Express Care Visit Vital Signs Vital signs: Vital Signs Temperature 97.9 F 07/31/24 10:06 Pulse Rate 95 07/31/24 10:06 Respiratory Rate 16 07/31/24 10:06 Blood Pressure 125/82 07/31/24 10:06 Pulse Oximetry 100 07/31/24 10:06 Oxygen Delivery Room Air 07/31/24 10:06 Temperature 97.9 F 07/31/24 10:06 Pulse Rate 95 07/31/24 10:06 Respiratory Rate 16 07/31/24 10:06 Blood Pressure 125/82 07/31/24 10:06 Pulse Oximetry 100 07/31/24 10:06 Oxygen Delivery Room Air 07/31/24 10:06 Reviewed MDM - URI/Sore Throat MDM Narrative Medical decision making narrative: Patient sitting comfortably in exam room. Nontoxic, vitals stable. Patient presents with 10 day history of sinus symptoms, will attempt treatment with doxycycline, discussed [id number] treatments as well to continue. Patient verbalized understanding Patient appropriate for outpatient treatment and follow-up Discharge instructions reviewed with patient, as well as provided in writing per nursing staff. The instructions also include specific and strict return/GO TO THE ER as well as f/u information. All questions have been answered, and the patient deny any further questions with discharge and discharge plan. Some parts of this dictation were generated by voice recognition software and may contain typographical and/or grammatical inaccuracies. Differential Diagnosis Differential diagnosis: Likely upper respiratory infection, otitis media, sinusitis, viral infection, bronchitis and pharyngitis Critical Care Time Critical Care Time Critical Care Time: No Discharge Plan Discharge Clinical Impression: Bronchitis Acute sinus infection Qualifiers: Sinusitis location: pansinusitis Recurrence: non-recurrent Qualified Code(s): J01.40 - Acute pansinusitis, unspecified Patient Disposition: Home, Self-Care Condition: Stable Instructions: Antibiotic Form, Sinusitis (ED), Acute Bronchitis (ED) Additional Instructions: It is very important to treat your symptoms. Drink plenty of water, Gatorade, Pedialyte, ice pops or Jell-O. -Alternate Tylenol and Motrin per package directions for fever or pain. You can alternate every 4 hours -Antihistamine medication such as Zyrtec/Claritin/Shima during the day can help improve symptoms. -doing daily nasal irrigations can help relieve pressure your sinuses. Things like a Neti pot -Use Flonase twice a day for 5 days then daily to help reduce the inflammation and dry up your sinuses. -You can also use Mucinex. Be sure to drink plenty of water with this medication at least 8 ounces with every dose and it is important to drink 8 to 10 glasses of water per day. Water is a natural decongestant -Eat and drink things that are easy to swallow, like tea or soup, or popsicles. -Oral rinses such as: Salt water gargles and/or may use topical anesthetic (eg. Chloraseptic spray) or lozenges to relieve dryness or throat pain). -Frequent hand washing or hand flight hostess is one of the best ways to prevent spread of infection. -Using a vaporizer or humidifier at night will also help thin secretions and help with coughing up phlegm. -Follow up with primary care provider in 7-10 days if condition is not improving - For new or worsening symptoms go directly to the nearest ER Patient Language: Sinhala Prescriptions: New doxycycline monohydrate 100 mg tablet 100 mg PO BID Qty: 14 0RF No Action Zyrtec 10 mg Capsule 10 mg PO DAILY fluticasone propionate [24 Hour Allergy Relief] 50 mcg/actuation spray,suspension 1 spray intranasal ONCE Rx Instructions: administer into each nostril buspirone 10 mg tablet 10 mg PO BID Qty: 60 6RF sertraline 100 mg tablet 100 mg PO DAILY Qty: 90 2RF Follow-up/Referrals: Layton Doan MD [Primary Care Provider] - 1 Week (express care follow up) Stand Alone Forms: Work/School Release IP Time of Disposition: 10:39
--- OUTSIDE RECORDS SUMMARY | 2024-08-07 09:05 | XMS_ITS | Encounter Summary ---
Author Organization [facility] Address [address] [place] [address] Care Team Providers Care Display Director Name Role Phone Layton Doan MD Primary Care Provider + Reason for Visit * Reason Onset Date Comments Follow-up 11/04/2016 Encounter Details Date Type Department Care Team (Late st Contact Info) Description 11/04/2016 Telephone [id number] [id number] [place] [address] Arina Corral, [facility] [address] [place] [address] Follow-up Social History Tobacco Use Types Packs/Day Years Used Date Smoking Tobacco: Never Assessed Sex and Gender Information Value Date Recorded Sex Assigned at Not on file Gender Identity Not on file Sexual Orientation Not on file documented as of this encounter Plan of Treatment Not on file documented as of this encounter Visit Diagnoses Not on filedocumented in this encounter Care Teams Display Director Relationship Specialty Start Date End Date Layton Doan MD [address] [place] [address] PCP - General Family Medicine 11/02/16 documented as of this encounter
--- OUTSIDE RECORDS SUMMARY | 2024-08-07 09:05 | XMS_ITS | Encounter Summary ---
Author Organization [facility] Address [address] [place] [address] Care Team Providers Care Oracle Ebs Developer Name Role Phone Layton Doan MD Primary Care Provider + Reason for Visit * Reason Comments Congestion Sinusitis Encounter Details Date Type Department Care Team (Late st Contact Info) Description 11/06/2016 2:00 PM CDT Office Visit [facility] AT [address] [phone] Provider, [facility] Acute recurrent pansinusitis (Primary Dx); Acute bronchitis, unspecified organism Social History Tobacco Use Types Packs/Day Years Used Date Smoking Tobacco: Some Days Smokeless Tobacco: Never Sex and Gender Information Value Date Recorded Sex Assigned at Not on file Gender Identity Not on file Sexual Orientation Not on file documented as of this encounter Last Filed Vital Signs Vital Sign Reading Time Taken Comments Blood Pressure 128/86 11/06/2016 2:05 PM CDT Pulse 77 11/06/2016 2:05 PM CDT Temperature 37.2 ??C (98.9 ??F) 11/06/2016 2:05 PM CD T Respiratory Rate 20 11/06/2016 2:05 PM CDT Oxygen Saturation 96% 11/06/2016 2:05 PM CDT Inhaled Oxygen Concentration - - Weight 90.7 kg (200 lb) 11/06/2016 2:05 PM CDT Height 172.7 cm (5' 8 ) 11/06/2016 2:05 PM CDT Body Mass Index 30.41 11/06/2016 2:05 PM CDT documented in this encounter Patient Instructions * Patient Instructions* Courtney Mckeon APRN-JENNIE - 11/06/2016 2:34 PM CDT Images from the original note were not included. Drink plenty of fluids to help thin secretions. May take Tylenol or Ibuprofen for fever or pain as directed per package instructions May take OTC antihistamines and/or decongestants, for symptom relief, as directed per package instructions. Recommend use of OTC intranasal saline irrigation as needed. Recommend use of OTC nasal spray such as Flonase or Nasonex as directed per package instructions Follow up with Dr. Doan if symptoms worsen or do not completely resolve. Go to ER or call 911 with any difficulty breathing, SOB, or increased WOB. Sinusitis WHAT YOU NEED TO KNOW: What is sinusitis? Sinusitis is inflammation or infection of your sinuses. It is most often caused by a virus. Acute sinusitis may last up to 12 weeks. Chronic sinusitis lasts longer than 12 weeks. Recurrent sinusitis is when you have 3 or more episodes of sinusitis in 1 year. What increases my risk for sinusitis? ?? Medical conditions, such as an upper respiratory infection, allergies, asthma, or cystic fibrosis ?? Dental infections or procedures, such as gum infections, tooth decay, tooth removal, root canal,or a tooth implant ?? Abnormal sinus structure, such as nasal growths, swollen tonsils, or a deviated septum ?? A weak immune system, from diseases such as diabetes or HIV ?? Smoking What are the signs and symptoms of sinusitis? ?? Fever ?? Pain, pressure, redness, or swelling around the forehead, cheeks, or eyes ?? Thick yellow or green discharge from your nose ?? Tenderness when you touch your face over your sinuses ?? Dry cough that happens mostly at night or when you lie down ?? Headache and face pain that is worse when you lean forward ?? Teeth pain or pain when you chew How is sinusitis diagnosed? Your healthcare provider will examine you and ask about your symptoms. He will check inside your nose using a nasal speculum. This is a small tool used to open your nostrils. A sample of the mucus from your nose may show what germ is causing your infection. If you have chronic sinusitis, you may need imaging tests. How is sinusitis treated? Your symptoms may go away on their own. You may need any of the following: ?? Acetaminophen decreases pain and fever. It is available without a doctor's order. Ask how much to take and how often to take it. Follow directions. Acetaminophen can cause liver damage if not taken correctly. ?? NSAIDs , such as ibuprofen, help decrease swelling, pain, and fever. This medicine is available with or without a doctor's order. NSAIDs can cause stomach bleeding or kidney problems in certain people. If you take blood thinner medicine, always ask if NSAIDs are safe for you. Always read the medicine label and follow directions. Do not give these medicines to children under 6 months of age without direction from your child's healthcare provider. ?? Nasal steroid sprays may help decrease inflammation in your nose and sinuses. ?? Decongestants help reduce swelling and drain mucus in the nose and sinuses. They may help you breathe easier. ?? Antihistamines help dry mucus in the nose and relieve sneezing. How can I manage my symptoms? ?? Rinse your sinuses. Use a sinus rinse device to rinse your nasal passages with a saline (salt water) solution. This will help thin the mucus in your nose and rinse away pollen and dirt. It will also help reduce swelling so you can breathe normally. Ask your healthcare provider how often to do this. ?? Breathe in steam. Heat a bowl of water until you see steam. Lean over the bowl and make a tent over your head with a large towel. Breathe deeply for about 20 minutes. Be careful not to get too close to the steam or burn yourself. Do this 3 times a day. You can also breathe deeply when you take ahot shower. ?? Sleep with your head elevated. Place an extra pillow under your head before you go to sleep to help your sinuses drain. ?? Drink liquids as directed. Ask your healthcare provider how much liquid to drink each day and which liquids are best for you. Liquids will thin the mucus in your nose and help it drain. Avoid drinks that contain alcohol or caffeine. ?? Do not smoke, and avoid secondhand smoke. Nicotine and other chemicals in cigarettes and cigars can make your symptoms worse. Ask your healthcare provider for information if you currently smoke and need help to quit. E-cigarettes or smokeless tobacco still contain nicotine. Talk to your healthcare provider before you use these products. How can I help prevent the spread of germs that cause sinusitis? Wash your hands often with soap and water. Wash your hands after you use the bathroom, change a child's diaper, or sneeze. Wash your hands before you prepare or eat food. When should I seek immediate care? ?? Your eye and eyelid are red, swollen, and painful. ?? You cannot open your eye. ?? You have vision changes, such as double vision. ?? Your eyeball bulges out or you cannot move your eye. ?? You are more sleepy than normal, or you notice changes in your ability to think, move, or talk. ?? You have a stiff neck, a fever, or a bad headache. ?? You have swelling of your forehead or scalp. When should I contact my healthcare provider? ?? Your symptoms get worse after 5 to 7 days. ?? Your symptoms do not go away after 10 days. ?? You have nausea and vomiting. ?? Your nose is bleeding. ?? You have questions or concerns about your condition or care. CARE AGREEMENT: You have the right to help plan your care. Learn about your health condition and how it may be treated. Discuss treatment options with your caregivers to decide what care you want to receive. You always have the right to refuse treatment. The above information is an braider tender only. It is not intended as medical advice for individual conditions or treatments. Talk to your doctor, nurse or pharmacist before following any medical regimen to see if it is safe and effective for you. ?? 2016 pic5. Information is for End User's use only and may not be sold, redistributed or otherwise used for commercial purposes. All illustrations and images included in CareNotes?? are the copyrighted property of [employer] or [employer]. Acute Bronchitis WHAT YOU NEED TO KNOW: Acute bronchitis is swelling and irritation in the air passages of your lungs. This irritation may cause you to cough or have other breathing problems. Acute bronchitis often starts because of another illness, such as a cold or the flu. The illness spreads from your nose and throat to your windpipeand airways. Bronchitis is often called a chest cold. Acute bronchitis lasts about 3 to 6 weeks andis usually not a serious illness. Your cough can last for several weeks. DISCHARGE INSTRUCTIONS: Return to the emergency department if: ?? You cough up blood. ?? Your lips or fingernails turn blue. ?? You feel like you are not getting enough air when you breathe. Contact your healthcare provider if: ?? You have a fever. ?? Your breathing problems do not go away or get worse. ?? Your cough does not get better within 4 weeks. ?? You have questions or concerns about your condition or care. Self-care: ?? Get more rest. Rest helps your body to heal. Slowly start to do more each day. Rest when you feel it is needed. ?? Avoid irritants in the air. Avoid chemicals, fumes, and dust. Wear a face mask if you must work around dust or fumes. Stay inside on days when air pollution levels are high. If you have allergies,stay inside when pollen counts are high. Do not use aerosol products, such as spray-on deodorant, bug spray, and hair spray. ?? Do not smoke or be around others who smoke. Nicotine and other chemicals in cigarettes and cigars damages the cilia that move mucus out of your lungs. Ask your healthcare provider for information if you currently smoke and need help to quit. E-cigarettes or smokeless tobacco still contain nicotine. Talk to your healthcare provider before you use these products. ?? Drink liquids as directed. Liquids help keep your air passages moist and help you cough up mucus. You may need to drink more liquids when you have acute bronchitis. Ask how much liquid to drink each day and which liquids are best for you. ?? Use a humidifier or vaporizer. Use a cool mist humidifier or a vaporizer to increase air moisture in your home. This may make it easier for you to breathe and help decrease your cough. Decrease risk for acute bronchitis: ?? Get the vaccinations you need. Ask your healthcare provider if you should get vaccinated againstthe flu or pneumonia. ?? Prevent the spread of germs. You can decrease your risk of acute bronchitis and other illnesses by doing the following: ?? Wash your hands often with soap and water. Carry germ-killing hand lotion or gel with you. You can use the lotion or gel to clean your hands when soap and water are not available. ?? Do not touch your eyes, nose, or mouth unless you have washed your hands first. ?? Always cover your mouth when you cough to prevent the spread of germs. It is best to cough into a tissue or your shirt sleeve instead of into your hand. Ask those around you cover their mouths when they cough. ?? Try to avoid people who have a cold or the flu. If you are sick, stay away from others as much as possible. Medicines: Your healthcare provider may give you any of the following: ?? Ibuprofen or acetaminophen are medicines that help lower your fever. They are available without a doctor's order. Ask your healthcare provider which medicine is right for you. Ask how much to takeand how often to take it. Follow directions. These medicines can cause stomach bleeding if not taken correctly. Ibuprofen can cause kidney damage. Do not take ibuprofen if you have kidney disease, anulcer, or allergies to aspirin. Acetaminophen can cause liver damage. Do not take more than 4,000 milligrams in 24 hours. ?? Decongestants help loosen mucus in your lungs and make it easier to cough up. This can help you breathe easier. ?? Cough suppressants decrease your urge to cough. If your cough produces mucus, do not take a cough suppressant unless your healthcare provider tells you to. Your healthcare provider may suggest that you take a cough suppressant at night so you can rest. ?? Inhalers may be given. Your healthcare provider may give you one or more inhalers to help you breathe easier and cough less. An inhaler gives your medicine to open your airways. Ask your healthcare provider to show you how to use your inhaler correctly. ?? Take your medicine as directed. Contact your healthcare provider if you think your medicine is not helping or if you have side effects. Tell him of her if you are allergic to any medicine. Keep a list of the medicines, vitamins, and herbs you take. Include the amounts, and when and why you take them. Bring the list or the pill bottles to follow-up visits. Carry your medicine list with you in case of an emergency. Follow up with your healthcare provider as directed: Write down questions you have so you will remember to ask them during your follow-up visits. ?? 2016 pic5. Information is for End User's use only and may not be sold, redistributed or otherwise used for commercial purposes. All illustrations and images included in CareNotes?? are the copyrighted property of [employer] or [employer], [employer]. The above information is an braider tender only. It is not intended as medical advice for individual conditions or treatments. Talk to your doctor, nurse or pharmacist before following any medical regimen to see if it is safe and effective for you. documented in this encounter Progress Notes * Courtney Mckeon APRN-CNP - 11/06/2016 2:10 PM CDT Subjective: Pati Ortiz is a 31 y.o. female who presents to clinic today for Chief Complaint Patient presents with ??? Congestion ??? Sinusitis Primary Care Physician is Layton Daon MD . Patient reports the following symptoms: productive cough, rhinorrhea (yellow/green in color), maxillary sinus pain with biting down, ear congestion bilateral, headache, sneezing, wheezing. Onset of symptoms was 8 weeks ago. Patient was treated for a sinusitis a couple of weeks ago with a Zpak. Patient states symptoms did improve. Then, approx. 8 days ago, started with productive cough and congestion. Patient also started with runny nose at this time. Patient dx with and treated for acute bronchitis (prednisone burst and albuterol) at this time. Patient states she is staying the same, with little improvement and has also started experiencing sinus pain and pressure, purulent rhinorrhea, and headache for approx 5 days. Patient states she has severe seasonal allergies, and this feels worse than allergies. The cough is productive of clear sputum, with wheezing, with shortness of breath during the cough and is aggravated by pollens, exercise or reclining position Associated symptoms include:postnasal drip, SOB, wheezing, sputum production. Patient does not have new pets. Patient does have a history of asthma. Patient does have a history of environmental allergens. Patient does have a history of smoking. Patient has not had a previous Chest X-ray. Positive for sick contacts at work and at home. OTC- Sudafed, zyrtec, ibuprofen, and mucinex with mild relief. Patient still smoking cigarettes and vaping during illness. Patient states she is not using her albuterol as often as she should. i Past Medical History Diagnosis Date ??? Anxiety ??? Asthma ??? Seasonal allergies No family history on file. Current Outpatient Prescriptions Medication Sig Dispense Refill ??? Cetirizine HCl (ZYRTEC PO) ??? amoxicillin-clavulanate (AUGMENTIN) 875-125 MG tablet Take 1 Tab by mouth 2 times daily for 10 days Reasons: Sinus Irritation and Congestion, Take with food 20 Tab 0 ??? predniSONE (DELTASONE) 20 MG tablet Take 3 Tabs by mouth once daily for 3 days 14 Tab 0 ??? PARoxetine (PAXIL) 20 MG tablet Take 20 mg by mouth once daily ??? clonazePAM (KLONOPIN) 1 MG tablet Take 1 mg by mouth nightly as needed for Anxiety Reported on 11/06/2016 ??? albuterol HFA (VENTOLIN HFA) 108 (90 BASE) MCG/ACT inhaler Inhale 2 Puffs by mouth every 6 hours as needed for Shortness of Breath, Wheezing or Cough 1 Inhaler 0 ??? benzonatate (TESSALON) 200 MG capsule Take 1 Cap by mouth 3 times daily as needed for Cough 30 Cap 0 No current facility-administered medications for this visit. No Known Allergies History Social History ??? Marital status: Single Occupational History Social History Main Topics ??? Smoking status: Current Some Day Smoker ??? Smokeless tobacco: Never Used Review of Systems Constitutional: Positive for fatigue and sinus headache Eyes: Negative Ears, nose, mouth, and throat: Positive for earaches bilaterally, frequent URI's, sinus trouble, persistent sore throat, congestion, and purulent rhinorrhea Respiratory: Positive for shortness of breath during cough, acute cough, clear sputum production, asthma, wheezing Cardiovascular: Negative Hematologic/lymphatic: Negative The rest of the review of systems was negative. Objective: BP 128/86 (BP SITE: LEFT ARM, BP POSITION: SITTING, BP CUFF SIZE: Adult) Pulse 77 Temp 98.9 ??F (Oral) Resp 20 Ht 1.727 m (5' 8 ) Wt 90.7 kg (200 lb) SpO2 96% BMI 30.41 kg/m2 Oxygens Saturation 96% on room air Exam: General appearance: alert, cooperative, no distress, oriented to person, place, and time, ill-appearing Head: normocephalic, without trauma Eyes: sclera and conjunctiva clear Ears: canals clear, tympanic membranes normal, hearing intact to voice Nose: nares open; no septal deviation is noted, mucosa erythematous and swollen, purulent rhinorrhea, maxillary tenderness bilaterally, frontal tenderness bilaterally, ethmoidal sinus tenderness withpalpation Throat: moderate oropharyngeal erythema, tonsillar hypertrophy 2+ Neck: supple, no tracheal abnormality Nodes: mild, benign-appearing anterior cervical adenopathy Lungs: breath sounds normal and symmetric;Good aeration throughout. Inspiratory and expiratory wheezes auscultated anterior and posteriorly; upper and lower de leon. Heart: regular rhythm, normal S1 and S2, without murmurs, gallops or rubs Assessment: Encounter Diagnoses Name Primary? Acute recurrent pansinusitis Yes ??? Acute bronchitis, unspecified organism Plan: Drink plenty of fluids to help thin secretions. May take Tylenol or Ibuprofen for fever or pain as directed per package instructions May take OTC antihistamines and/or decongestants, for symptom relief, as directed per package instructions. Recommend use of OTC intranasal saline irrigation as needed. Recommend use of OTC nasal spray such as Flonase or Nasonex as directed per package instructions Follow up with Dr. Benitez if symptoms worsen or do not completely resolve, for Chest XRAY. Stop taking current prescription of prednisone (had 3 days left). Start new prescription/dose of prednisone today. Go to ER or call 911 with any difficulty breathing, SOB, or increased WOB. Orders Placed This Encounter ??? amoxicillin-clavulanate (AUGMENTIN) 875-125 MG tablet Sig: Take 1 Tab by mouth 2 times daily for 10 days Reasons: Sinus Irritation and Congestion, Take with food Dispense: 20 Tab Refill: 0 ??? predniSONE (DELTASONE) 20 MG tablet Sig: Take 3 Tabs by mouth once daily for 3 days Dispense: 14 Tab Refill: 0 Courtney Mckeon APRN, [employer]MING [employer]OR-BC documented in this encounter Plan of Treatment Not on file documented as of this encounter Visit Diagnoses Diagnosis Acute recurrent pansinusitis- Primary Other acute sinusitis Acute bronchitis, unspecified organism documented in this encounter Care Teams Oracle Ebs Developer Relationship Specialty Start Date End Date Layton Doan MD [address] [id number] PCP - General Family Medicine 11/02/16 documented as of this encounter
--- OUTSIDE RECORDS SUMMARY | 2024-08-07 09:05 | XMS_ITS | Encounter Summary ---
Author Organization [facility] Address [address] [place] [address] Care Team Providers Care Early Childhood Services Coordinator Name Role Phone Layton Doan MD Primary Care Provider + Reason for Visit * Reason Onset Date Comments Follow-up 11/08/2016 Encounter Details Date Type Department Care Team ([facility] st Contact Info) Description 11/08/2016 Telephone [facility] [employer] [facility] [address] [phone] Cyndy Rosenberg Follow-up Social History Tobacco Use Types Packs/Day [...] on filedocumented in this encounter Care Teams Early Childhood Services Coordinator Relationship Specialty Start Date End Date Layton Doan MD [address] [place] [phone] PCP - General Family Medicine 11/02/16 documented as of this encounter
--- OUTSIDE RECORDS SUMMARY | 2024-08-07 09:05 | XMS_ITS | Encounter Summary ---
Author Organization [facility] Address [address] [place] [address] Care Team Providers Care Tubing Oiler Name Role Phone Layton Doan MD Primary Care Provider + Reason for Visit * Reason Comments Sinusitis Encounter Details Date Type Department Care Team (Late st Contact Info) Description 06/24/2017 11:40 AM DRY WALL FINISHER Office Visit [facility] AT [address] [phone] Provider, [facility] Acute maxillary sinusitis, recurrence not specified (Primary Dx) Social History Tobacco Use Types Packs/Day Years Used Date Smoking Tobacco: Former Cigarettes 2016 Smokeless Tobacco: Never Estimated Date of Delivery Comme nts Yes 08/22/2017 Sex and Gender Information Value Date Recorded Sex Assigned at Not on file Gender Identity Not on file Sexual Orientation Not on file documented as of this encounter Last Filed Vital Signs Vital Sign Reading Time Taken Comments Blood Pressure 122/70 06/24/2017 11:48 AM DRY WALL FINISHER Pulse 110 06/24/2017 11:48 AM DRY WALL FINISHER Temperature 37.1 ??C (98.8 ??F) 06/24/2017 1 1:48 AM DRY WALL FINISHER Respiratory Rate 20 06/24/2017 11:4 8 AM DRY WALL FINISHER Oxygen Saturation 99% 06/24/2017 11: 48 AM DRY WALL FINISHER Inhaled Oxygen Concentration - - Weight 107.5 kg (237 lb) 06/24/2017 11: 48 AM DRY WALL FINISHER Patient Height 172.7 cm (5' 8 ) 06/24/2017 11:4 8 AM DRY WALL FINISHER Body Mass Index 36.04 06/24/2017 11:48 AM DRY WALL FINISHER documented in this encounter Patient Instructions * Patient Instructions* Arina Corral APRN-JENNIE - 06/24/2017 12:04 PM DRY WALL FINISHER Sinusitis OTR FLATBED DRIVER: Sinusitis is inflammation or infection of your sinuses. It is most often caused by a virus. Acute sinusitis may last up to 12 weeks. Chronic sinusitis lasts longer than 12 weeks. Recurrent sinusitis is when you have 3 or more episodes of sinusitis in 1 year. Common symptoms include the following: ?? Fever ?? Pain, pressure, redness, or [...] Teeth pain or pain when you chew Seek care immediately if: ?? Your eye and eyelid are red, [...] have swelling of your forehead or scalp. Contact your healthcare provider if: ?? Your symptoms get worse after 5 to 7 days. ?? Your symptoms do not go away after 10 days. ?? You have nausea and vomiting. ?? Your nose is bleeding. ?? You have questions or concerns about your condition or care. Treatment for sinusitis may include any of the following: ?? Acetaminophen decreases [...] mucus in the nose and relieve sneezing. ?? Take your medicine as directed. Contact your healthcare provider if you think your medicine is not helping or if you have side effects. Tell him or her if you are allergic to any medicine. Keep a list of the medicines, vitamins, and herbs you take. Include the amounts, and when and why you take them. Bring the list or the pill bottles to follow-up visits. Carry your medicine list with you in case of an emergency. Self-care: ?? Rinse your sinuses. Use a sinus [...] healthcare provider before you use these products. Prevent the spread of germs that cause sinusitis: Wash your hands often with soap and water. Wash your hands after you use the bathroom, change a child's diaper, or sneeze. Wash your hands before youprepare or eat food. Follow up with your healthcare provider as directed: Write down your questions so you remember to ask them during your visits. ?? 2016 [employer] Information is for End User's use only and may not be sold, redistributed or otherwise used for commercial purposes. All illustrations and images included in CareNotes?? are the copyrighted property of [employer], [email or web address]. or [employer]. The above information is an ortho/prosthetic aide only. It is not intended as medical advice for individual conditions or treatments. Talk to your doctor, nurse or pharmacist before following any medical regimen to see if it is safe and effective for you. WALL FINISHER documented in this encounter Progress Notes * Arina Corral APRN-CNP - 06/24/2017 11:49 AM CST Subjective: Pati Ortiz is a 31 y.o. female who presents to the clinic for Chief Complaint Patient presents with ??? Sinusitis . Her Primary Care Physician is Layton Doan MD. She reports stuffy nose, yellow nasal drainage, sore throat. Onset of symptoms was 1 week, and is gradually worsening since that time. Patient also has cough, ear pressure bilateral, teeth aching. She is drinking plenty of fluids.. She have tried decongestants. Pt is EDC 08/22/17 Past Medical History: Diagnosis Date ??? Anxiety ??? Asthma ??? Seasonal allergies No family history on file. Current Outpatient Prescriptions Medication Sig Dispense Refill ??? Sertraline HCl (ZOLOFT PO) ??? Vit-Fe Fumarate-FA ( VITAMIN) 27-0.8 MG tablet Take 1 tablet by mouth once daily ??? amoxicillin-clavulanate (AUGMENTIN) 875-125 MG tablet Take 1 tablet by mouth 2 times daily withmorning and evening meal for 7 days 14 tablet 0 ??? Cetirizine HCl (ZYRTEC PO) ??? albuterol HFA (VENTOLIN HFA) 108 (90 BASE) MCG/ACT inhaler Inhale 2 Puffs by mouth every 6 hours as needed for Shortness of Breath, Wheezing or Cough (Patient not taking: Reported on 06/24/2017) 1Inhaler 0 No current facility-administered medications for this visit. No Known Allergies Social History Social History ??? Marital status: Single Spouse name: N/A ??? Number of children: N/A ??? Years of education: N/A Occupational History ??? Not on file. Social History Main Topics ??? Smoking status: Former Smoker Years: 12.00 Quit date: 2016 ??? Smokeless tobacco: Never Used ??? Alcohol use Not on file ??? Drug use: Not on file ??? Sexual activity: Not on file Other Topics Concern ??? Not on file Social History Narrative Review of Systems Pertinent items are noted in HPI Constitutional: Positive for fatigue Eyes: Negative Ears, nose, mouth, and throat: bilateral ear pressure, upper teeth aching, sinus pressure and congestion, sore throat - worse in am, and yellow nasal drainage. Respiratory: Positive for acute cough Cardiovascular: Negative Gastrointestinal: Negative Genitourinary:Negative Skin: Negative Musculoskeletal:Negative Neurological: Negative Objective: BP 122/70 (BP SITE: LEFT ARM, BP POSITION: SITTING, BP CUFF SIZE: Large Adult) Pulse 110 Temp 98.8 ??F (Oral) Resp 20 Ht 1.727 m (5' 8 ) Wt 107.5 kg (237 lb) SpO2 99% BMI 36.04 kg/m2 Exam General appearance: alert, cooperative, no distress, oriented to person, place, and time, wellappearing Head: normocephalic, without trauma Eyes: sclera and conjunctiva clear, EOMI and PERRLA, lids normal Ears: canals clear, tympanic membranes normal, hearing intact to voice Nose: nares open; no septal deviation is noted, mucosa erythematous and swollen, maxillary tenderness bilaterally Throat: tongue midline and normal, mild oropharyngeal erythema, tonsillar hypertrophy-none, no exudates present Neck: range of motion is intact, no masses, Nodes: mild, benign-appearing anterior cervical adenopathy Lungs: breath sounds normal and symmetric; no rales or wheezes Heart: regular rhythm, normal S1 and S2, without murmurs, gallops or rubs Neurologic: mental status normal; alert and oriented X 3 Assessment: Encounter Diagnosis Name Primary? Acute maxillary sinusitis, recurrence not specified Yes Plan: Discussed the dx and tx of sinusitis. RTC prn. Follow up with OBGYN as needed. If symptoms worsen or persist call OBGYN or go to ED Drink plenty of fluids and get plenty of rest Warm liquids and salt water gargles can help with throat pain. Take tylenol as needed for pain per package directions. Orders Placed This Encounter ??? amoxicillin-clavulanate (AUGMENTIN) 875-125 MG tablet Sig: Take 1 tablet by mouth 2 times daily with morning and evening meal for 7 days Dispense: 14 tablet Refill: 0 No results found for this or any previous visit (from the past 24 hour(s)). WALL FINISHER documented in this encounter Plan of Treatment Not on file documented as of this encounter Visit Diagnoses Diagnosis Acute maxillary sinusitis, recurrence not specified- Primary documented in this encounter Care Teams Tubing Oiler Relationship Specialty Start Date End Date Layton Doan MD [address] [address] PCP - General Family Medicine 11/02/16 documented as of this encounter
--- OUTSIDE RECORDS SUMMARY | 2024-08-07 09:05 | XMS_ITS | Clinical Summary ---
Author Organization [facility] Address [address] [place] [address] Care Team Providers Care Medical Office Clerk Name Role Phone Layton Doan MD Primary Care Provider + Source Comments [facility],non-owned Affiliates and Associated Physician Practices is amultiple site organization consisting of ambulatory clinics and hospital sitesin [place], [place], [place] and [place]. This disclosure is being madepursuant to the Care Everywhere program and may not contain all information available regarding this patient. Last updated 18.[facility] Allergies No known active allergies Medications * Be aware that medications may not be up to date on this document. Alwaysverify current medications with the patient. Medication Sig Dispensed Refills Start Date End Date Status albuterol HFA (VENTOLIN HFA) 108 (90 BASE) MCG/ACT inhaler Inhale 2 Puffs by mouth every 6 hours as needed for Shortness of Breath, Wheezing or Cough 1 Inhaler 11/02/2016 Active Cetirizine HCl (ZYRTEC PO) Active Sertraline HCl (ZOLOFT PO) Active ClonazePAM (KLONOPIN PO) Active Cyclobenzaprine HCl (FLEXERIL PO) Active Family History Relation Name Status Comments Father Social History Tobacco Use Types Packs/Day Years Used Date Smoking Tobacco: Former Cigarettes 2016 Smokeless Tobacco: Never Estimated Date of Delivery Comme nts Yes 08/22/2017 Sex and Gender Information Value Date Recorded Sex Assigned at Not on file Gender Identity Not on file Sexual Orientation Not on file Last Filed Vital Signs Vital Sign Reading Time Taken Comments Blood Pressure 132/80 12/18/2017 2:05 PM CDT Pulse 82 12/18/2017 2:05 PM CDT Temperature 37 ??C (98.6 ??F) 12/18/2017 2:05 PM CDT Respiratory Rate 16 12/18/2017 2:05 PM CDT Oxygen Saturation 98% 12/18/2017 2:05 PM CDT Inhaled Oxygen Concentration - - Weight 90.7 kg (200 lb) 12/18/2017 2:05 PM CDT Height 172.7 cm (5' 8 ) 12/18/2017 2:05 PM CDT Body Mass Index 30.41 12/18/2017 2:05 PM CDT Plan of Treatment Health Maintenance Due Date Last Done Comments PAP SMEAR 1985 HIV SCREENING 2000 HEPATITIS C SCREENING 08/02/2003 DTAP/TDAP/TD VACCINES (1 - Tdap) 2004 HEPATITIS B VACCINE (1 of 3 - 19+ 3-dose series) 2004 DEPRESSION SCREENING 08/16/2023 COVID-19 VACCINE (1 - 2023-2 5 season) 2024 INFLUENZA VACCINE (#1) 2024 ZOSTER VACCINE (1 of 2) 2035 Respiratory Syncytial Virus (RSV) Vaccine Pt: or over 60 yrs (1 - 1-dose 75+ series) 2060 HIB VACCINE Aged Out No longer eligi ble based on patient's age to complete this topic HPV VACCINE Aged Out No longer eligi ble based on patient's age to complete this topic MENINGOCOCCAL VACCINE Aged Out No sunitha duane eligible based on patient's age to complete this topic PNEUMOCOCCAL VACCINE Aged Out No long er eligible based on patient's age to complete this topic Care Teams Medical Office Clerk Relationship Specialty Start Date End Date Layton Doan MD [address] [place] [address] [address] [place] [address] PCP - General Family Medicine 11/02/16
--- OUTSIDE RECORDS SUMMARY | 2024-08-07 09:05 | XMS_ITS | Patient Health Summary ---
Author Organization [facility] [employer] Address [address] [place] [address] Care Team Providers Care Allergist/Pediatric Pulmonologist Name Role Phone Layton Doan MD Primary Care Provider + Note from [facility],non-owned Affiliates and Associated Physician Practices is amultiple site organization consisting of ambulatory clinics and hospital sitesin [place], [place], [place] and [place]. This disclosure is being madepursuant to the Care Everywhere program and may not contain all information available regarding this patient. Last updated 18.[facility] Allergies No known active allergies Medications * Be aware that medications may not be up to date on this document. Alwaysverify current medications with the patient. * albuterol HFA (VENTOLIN HFA) 108 (90 BASE) MCG/ACT inhaler(Started 11/02/2016) Inhale 2 Puffs by mouth every 6 hours as needed for Shortness of Breath, Wheezing or Cough * Cetirizine HCl (ZYRTEC PO) * Sertraline HCl (ZOLOFT PO) * ClonazePAM (KLONOPIN PO) * Cyclobenzaprine HCl (FLEXERIL PO) Social History Tobacco Use Types Packs/Day Years Used Date Smoking Tobacco: Former Cigarettes 2 - 2016 Smokeless Tobacco: Never Estimated Date of [...] Mass Index 30.41 12/18/2017 2:05 PM CDT Care Teams Allergist/Pediatric Pulmonologist Relationship Specialty Start Date End Date Layton Doan MD [address] [address] PCP - General Family Medicine 11/02/16
--- OUTSIDE RECORDS SUMMARY | 2024-08-07 09:05 | XMS_ITS | Encounter Summary ---
Author Organization [facility] Address [address] [place] [address] Care Team Providers Care Asset Specialist Name Role Phone Layton Doan MD Primary Care Provider + Reason for Visit * Reason Comments HSV Encounter Details Date Type Department Care Team (Late st Contact Info) Description 12/18/2017 2:00 PM CDT Office Visit [facility] AT [address] [phone] Provider, [facility] Herpes simplex labialis (Primary Dx); Oral aphthous ulcer Social History Tobacco Use Types Packs/Day Years [...] Mass Index 30.41 12/18/2017 2:05 PM CDT documented in this encounter Patient Instructions * Patient Instructions* Courtney Mckeon, MANAGER CUSTOMS-AUXILIARY EQUIPMENT OPERATOR - 12/18/2017 2:15 PM CDT FOR PAIN CONTROL Magic Mouthwash Equal parts liquid antacid (e.g.Maalox) and liquid Children's Benadryl with a couple drops of liquid Anbesol. Gargle (and spit out) every 3-4 hours as needed. Canker Sores WOODS WARDEN: Canker sores are small ulcers that develop inside your mouth. Ulcers are open sores that may be shallow or deep. You may have one or more sores at a time, and they may grow in clusters. Common signs and symptoms of canker sores: ?? One or more sores on the back or floor of your mouth, the inner side of your cheeks and lips, orunder your tongue ?? Round or oval-shaped red sores that may be covered with a white or yellow film ?? Pain, burning, or tingling in your mouth ?? Fever and fatigue ?? Difficulty chewing and swallowing Seek care immediately if: ?? You cannot eat or drink because of your mouth pain. Contact your healthcare provider if: ?? Your canker sores are not gone after 3 to 4 weeks. ?? Your pain does not go away after you take medicines. ?? Your sores are getting worse or you are getting more sores, even after treatment. ?? You have questions or concerns about your condition or care. Treatment may not be needed. Canker sores cannot be cured. The sores may go away for a time, and then come back again. You may need pain medicine given as a cream, gel, or mouthwash. You may also need steroid medicine to decrease inflammation. Manage your symptoms: ?? Eat soft, plain foods until your canker sores heal. Examples include yogurt, eggs, and creamy soups. You may need to change some foods you usually eat. Do not have crunchy, dry, or salty foods, such as dry toast, popcorn, or chips. These can cause pain. Do not have foods or drinks that contain citric acid, such as grapefruit, orange juice, jaden, and limes. These may make your pain worse or cause more sores to form. ?? Care for your mouth as directed. Gently brush your teeth and tongue every day. Use a soft toothbrush. If you have dentures, clean them every day. If your braces or dentures do not feel comfortable, have a dentist check them to see that they fit well. Follow up with your healthcare provider as directed: Write down your questions so you remember to ask them during your visits. ?? 2017 [employer] Information is for End User's use only and may not be sold, redistributed or otherwise used for commercial purposes. All illustrations and images included in CareNotes?? are the copyrighted property of [employer]. or [employer]. The above information is an disability aide only. It is not intended as medical advice for individual conditions or treatments. Talk to your doctor, nurse or pharmacist before following any medical regimen to see if it is safe and effective for you. Oral Herpes Simplex Virus Infections WHAT YOU NEED TO KNOW: Oral herpes simplex virus (HSV) infections cause sores to form on the mouth, lips, or gums. HSV has2 types. Oral HSV infections are most often caused by HSV type 1. HSV type 2 normally affects the genital area, but may also occur in the mouth. After you are infected, the virus hides in your nervesand may return. An HSV infection that comes back is also known as a cold sore. DISCHARGE INSTRUCTIONS: Medicines: ?? Antiviral medicine: This decreases symptoms and shortens the amount of time blisters are present. You may also need to take it daily to prevent blisters. The medicine may be given as a liquid, pill, or ointment. Use as directed. ?? Numbing medicine: This decreases mouth pain. It is usually given as a mouth rinse. Use it beforeyou eat or drink, or as directed. Follow up with your healthcare provider as directed: Write down your questions so you remember to ask them during your visits. Self-care: ?? Eat soft, bland foods: Avoid salty, acidic, spicy, sharp-edged, and hard foods. Eat healthy foods to help healing. ?? Drink liquids: Cool liquids may help soothe your mouth and numb the pain. Avoid citrus or carbonated drinks, such as orange or grapefruit juice, lemonade, or soda. These liquids may cause your mouth to hurt more. A straw may help if you have blisters on the lips or tongue. ?? Use ice: Ice helps decrease swelling and pain. Drink cold water or suck on ice to help decrease pain on your tongue or inside your mouth. Use an ice pack, or put crushed ice in a plastic bag on your lip. Cover it with a towel and place it on your lip for 15 to 20 minutes every hour or as directed. Prevent the spread of the herpes simplex virus: ?? Do not have close contact with people until the blisters heal. This includes touching, kissing, and oral sex. ?? Do not get close to babies or to people who are sick while you have cold sores. ?? Do not share eating utensils, towels, lip balm, or makeup with another person. ?? Do not touch the blisters or pick at the scabs. Do not touch other body parts, especially your eyes or genitals without washing your hands first. Wash your hands often. Contact your healthcare provider if: ?? You have a fever. ?? Your symptoms become worse or do not improve a week after you start treatment. ?? You have difficulty eating or drinking because of the pain in your mouth. ?? You get a headache, are nauseated, or vomit. ?? Your eyes feel irritated, or you feel like you have something in your eye. ?? Your skin becomes itchy, swollen, or develops a rash after you take your medicine. ?? You have questions or concerns about your condition or care. Return to the emergency department if: ?? You get a fever, feel achy, or see pus instead of clear fluid in the sores. ?? You get sores on your eyes. ?? You have abdominal pain, a severe headache, or confusion. ?? You get new symptoms, or old symptoms return after you have been treated. ?? 2017 [employer] Information is for End User's use only and may not be sold, redistributed or otherwise used for commercial purposes. All illustrations and images included in CareNotes?? are the copyrighted property of [employer] or [employer]. The above information is an disability aide only. It is not intended as medical advice for individual conditions or treatments. Talk to your doctor, nurse or pharmacist before following any medical regimen to see if it is safe and effective for you. documented in this encounter Progress Notes * Courtney Mckeon APRN-CNP - 12/18/2017 2:11 PM CDT Images from the original note were not included. Subjective: Pati Ortiz is a 32 y.o. female who presents for evaluation: Chief Complaint Patient presents with ??? HSV Primary Care Physician is Layton Doan MD. Symptoms include fever blister to center of lower lip and canker sores on sides of tongue and frontinside of lower lip. Patient states she usually has a prescription for Valtrex, but does not have any refills at this time. Onset of fever blister and canker sores was 2 days ago gradually worsening since that time. No associating symptoms. She is drinking plenty of fluids. OTC- Topical benadryl Negative for sick contacts. Evaluation to date: none. No Known Allergies Outpatient Prescriptions Marked as Taking for the 12/18/17 encounter (Office Visit) with Provider, Tisha Mccartywood Medication Sig ??? ClonazePAM (KLONOPIN PO) ??? Cyclobenzaprine HCl (FLEXERIL PO) ??? valACYclovir (VALTREX) 1 GM tablet Take 2 tablets by mouth 2 times daily for 1 day Reasons: Herpes Simplex affecting the Lip ??? Sertraline HCl (ZOLOFT PO) ??? Cetirizine HCl (ZYRTEC PO) ??? albuterol HFA (VENTOLIN HFA) 108 (90 BASE) MCG/ACT inhaler Inhale 2 Puffs by mouth every 6 hours as needed for Shortness of Breath, Wheezing or Cough Past Medical History: Diagnosis Date ??? Anxiety ??? Asthma ??? HSV-1 (herpes simplex virus 1) infection ??? Seasonal allergies Social History Social History ??? Marital status: Single Social History Main Topics ??? Smoking status: Former Smoker Years: 12.00 Quit date: 2016 ??? Smokeless tobacco: Never Used Medications reviewed. Review of Systems Constitutional: Negative for fevers, chills. Ears, nose, mouth, and throat: Positive for canker sores inside mouth and fever blister to outside lower lip Respiratory: Negative for acute cough Cardiovascular: Negative for tachycardia Skin: Positive for fever blister to outer lower lip Objective: BP 132/80 (BP SITE: LEFT ARM, BP POSITION: SITTING, BP CUFF SIZE: 11) Pulse 82 Temp 98.6 ??F (37 ??C) (Oral) Resp 16 Ht 1.727 m (5' 8 ) Wt 90.7 kg (200 lb) SpO2 98% BMI 30.41 kg/m2 Physical Exam Exam General appearance: alert, cooperative, no distress, oriented to person, place, and time, wellappearing Throat: herpetic lesion to outside lower lip, aphthous ulcerations Lungs: breath sounds normal and symmetric; no rales or wheezes Heart: regular rhythm, normal S1 and S2, without murmurs, gallops or rubs Skin: Herpetic lesion to center of outer lower lip Assessment: . Encounter Diagnoses Name Primary? Herpes simplex labialis Yes ??? Oral aphthous ulcer Plan: FOR PAIN CONTROL Magic Mouthwash Equal parts liquid antacid (e.g.Maalox) and liquid Children's Benadryl with a couple drops of liquid Anbesol. Gargle (and spit out) every 3-4 hours as needed. Reviewed education materials and instructions with patient and answered all questions. Pati Ortiz verbalized understanding and agrees with plan. Follow up with Layton Doan MD if symptoms worsen or do not completely resolve. Orders Placed This Encounter ??? valACYclovir (VALTREX) 1 GM tablet Sig: Take 2 tablets by mouth 2 times daily for 1 day Reasons: Herpes Simplex affecting the Lip Dispense: 4 tablet Refill: 0 Courtney Mckeon APRN, WATER/WASTEWATER PROJECT MANAGER-BC 12/18/2017 2:22 PM documented in this encounter Plan of Treatment Not on file documented as of this encounter Visit Diagnoses Diagnosis Herpes simplex labialis- Primary Herpes simplex without mention of complication Oral aphthous ulcer Oral aphthae documented in this encounter Care Teams Asset Specialist Relationship Specialty Start Date End Date Layton Doan MD [address] [address] PCP - General Family Medicine 11/02/16 documented as of this encounter
--- OUTSIDE RECORDS SUMMARY | 2024-08-07 09:05 | XMS_ITS | Encounter Summary ---
Author Organization [facility] Address [address] [place] [address] Care Team Providers Care High Density Finishing Operator Name Role Phone Layton Doan MD Primary Care Provider + Reason for Visit * Reason Onset Date Comments Follow-up 12/20/2017 Encounter Details Date Type Department Care Team ([facility] st Contact Info) Description 12/20/2017 Telephone [facility] AT [address] [phone] Luis Miguel [place] Follow-up Social History Tobacco Use Types Packs/Day [...] on filedocumented in this encounter Care Teams High Density Finishing Operator Relationship Specialty Start Date End Date Layton Doan MD [address] [place] [address] [address] [place] [address] PCP - General Family Medicine 11/02/16 documented as of this encounter
--- OUTSIDE RECORDS SUMMARY | 2024-08-07 09:05 | XMS_ITS | Referral Summary ---
Author Organization [facility] Address [address] [place] [address] Care Team Providers Care Cat And Dog Bather Name Role Phone Layton Doan MD Primary Care Provider + Source Comments [facility],non-owned Affiliates and Associated Physician Practices is amultiple site organization consisting of ambulatory clinics and hospital sitesin [place], [place], [place] and [place]. This disclosure is being madepursuant to the Care Everywhere program and may not contain all information available regarding this patient. Last updated 18.[facility] Allergies No known active allergies Medications * [...] PO) Active Cyclobenzaprine HCl (FLEXERIL PO) Active Social History Tobacco Use Types Packs/Day Years Used Date Smoking Tobacco: Former Cigarettes - 2016 Smokeless Tobacco: Never Estimated Date [...] 12/18/2017 2:05 PM CDT Plan of Treatment Not on file Care Teams Cat And Dog Bather Relationship Specialty Start Date End Date Layton Doan MD [address] [facility] [address] [place] [address] PCP - General Family Medicine 11/02/16
--- OUTSIDE RECORDS SUMMARY | 2024-08-07 09:05 | XMS_ITS | Encounter Summary ---
Author Organization [facility] Address [address] [place] [address] Care Team Providers Care Mason Tender Restoration Labor Name Role Phone Layton Doan MD Primary Care Provider + Reason for Visit * Reason Onset Date Comments Follow-up 06/26/2017 Encounter Details Date Type Department Care Team ([facility] Contact Info) Description 06/26/2017 Telephone [facility] [employer] [facility] [address] [address] Provider, [facility] Follow-up Social History Tobacco Use Types Packs/Day [...] on filedocumented in this encounter Care Teams Mason Tender Restoration Labor Relationship Specialty Start Date End Date Layton Doan MD [address] [place] [address] [address] [place] [address] PCP - General Family Medicine 11/02/16 documented as of this encounter
--- OUTSIDE RECORDS SUMMARY | 2024-08-07 09:06 | XMS_ITS | Encounter Summary ---
Author Organization [facility] Address [address] [place] [address]. [place] [address] [place] [address] Care Team Providers Care Mosaic Technician Name Role Phone Layton Doan MD Primary Care Provider +- [phone] Layton Doan MD Primary Care Provider + [phone] Layton Doan MD Primary Care Provider + [phone] Layton Doan MD Primary Care Provider +- [phone] Encounter Details Date Type Department Care Team (Late st Contact Info) Description 08/12/[address] [facility] [address] [place], [place] [id number] Althea Raphael MD [address] [facility] [address] [place] [address] Social History Tobacco Use Types Packs/Day Years Used Date Smoking Tobacco: Never Assessed Comments Unknown Sex and Gender Information Value Date Recorded Sex Assigned at Not on file Legal Sex Female 8:13 PM CDT Gender Identity Not on file Sexual Orientation Not on file documented as of this encounter Plan of Treatment Not on file documented as of this encounter Visit Diagnoses Diagnosis Acute bronchitis documented in this encounter Care Teams Mosaic Technician Relationship Specialty Start Date End Date Layton Doan MD [address] [address] PCP - General 05/03/16 Layton Doan MD [address] [place] [address] PCP - General 04/28/16 05/02/16 Layton Doan MD [address] [address] PCP - General 11/25/14 04/27/16 Layton Doan MD [address] [address] PCP - General 08/12/13 11/24/14 documented as of this encounter
--- OUTSIDE RECORDS SUMMARY | 2024-08-07 09:06 | XMS_ITS | Encounter Summary ---
Author Organization [facility] Address [address] [place] [address] Care Team Providers Care Soil Field Technician Name Role Phone Layton Doan MD Primary Care Provider + Reason for Visit * Reason Comments Cough Encounter Details Date Type Department Care Team ([facility] st Contact Info) Description 11/02/2016 10:00 AM CDT Office Visit [facility] AT [address] [address] Provider, [facility] Acute bronchitis, unspecified organism (Primary Dx) Social History Tobacco Use Types Packs/Day Years Used Date Smoking Tobacco: Never Assessed Sex and Gender Information Value Date Recorded Sex Assigned at Not on file Gender Identity Not on file Sexual Orientation Not on file documented as of this encounter Last Filed Vital Signs Vital Sign Reading Time Taken Comments Blood Pressure 120/88 11/02/2016 10:04 AM CDT Pulse 89 11/02/2016 10:04 AM CDT Temperature 36.8 ??C (98.2 ??F) 11/02/2016 10:04 AM C DT Respiratory Rate 16 11/02/2016 10:04 AM CDT Oxygen Saturation 97% 11/02/2016 10:04 AM CDT Inhaled Oxygen Concentration - - Weight 90.7 kg (200 lb) 11/02/2016 10:04 AM CDT Height 172.7 cm (5' 8 ) 11/02/2016 10:04 AM CDT Body Mass Index 30.41 11/02/2016 10:04 AM CDT documented in this encounter Patient Instructions * Patient Instructions* Noemi Solano APRN-JENNIE - 11/02/2016 10:27 AM CDT Images from the original note were not included. Acute Bronchitis STONEWORK SUPERVISOR: Acute bronchitis is swelling and irritation in [...] Your cough can last for several weeks. You may have any of the following symptoms: ?? A cough with sputum that may be clear, yellow, or green ?? Feeling more tired than usual, and body aches ?? A fever and chills ?? Wheezing when you breathe ?? A tight chest or pain when you breathe or cough Seek care immediately if: ?? You cough up blood. ?? [...] to breathe and help decrease your cough. Prevent acute bronchitis by doing the following: ?? Get the vaccinations you need. Ask [...] you how to use your inhaler correctly. Follow up with your healthcare provider as directed: Write down questions you have so you will remember to ask them during your follow-up visits. ?? 2016 [employer] Information is for End User's use only and may not be sold, redistributed or otherwise used for commercial purposes. All illustrations and images included in CareNotes?? are the copyrighted property of [employer]. or [employer]. The above information is an multimedia educational specialist only. It is not intended as medical advice for individual conditions or treatments. Talk to your doctor, nurse or pharmacist before following any medical regimen to see if it is safe and effective for you. documented in this encounter Progress Notes * Noemi Solano APRN-CNP - 11/02/2016 10:12 AM CDT Subjective: Pati Ortiz is a 31 y.o. female who presents to clinic today for Chief Complaint Patient presents with ??? Cough . Primary Care Physician is Layton Doan MD . Patient reports the following symptoms: productive cough with sputum described as minimal clear, minimal yellow, nasal congestion. Onset of symptoms was 5 days ago, gradually worsening since that time. The cough is productive of clear sputum, productive of green/yellow sputum, with wheezing, harsh,worsening over time and is aggravated by none Associated symptoms include:postnasal drip, wheezing,sputum production. Patient does not have new pets. Patient does have a history of asthma. Patient does have a history of environmental allergens. Patient does not have recent travel. Patient does have a history of smoking. Patient has previous Chest X-ray. Patient has not had a PPD done. No past medical history on file. No family history on file. Current Outpatient Prescriptions Medication Sig Dispense Refill ??? PARoxetine (PAXIL) 20 MG tablet Take 20 mg by mouth once daily ??? clonazePAM (KLONOPIN) 1 MG tablet Take 1 mg by mouth nightly as needed for Anxiety ??? albuterol HFA (VENTOLIN HFA) 108 (90 BASE) MCG/ACT inhaler Inhale 2 Puffs by mouth every 6 hours as needed for Shortness of Breath, Wheezing or Cough 1 Inhaler 0 ??? predniSONE (DELTASONE) 10 MG tablet Take 1 Tab by mouth 2 times daily for 7 days 14 Tab 0 ??? benzonatate (TESSALON) 200 MG capsule [...] Social History Main Topics ??? Smoking status: Not on file ??? Smokeless tobacco: Not on file ??? Alcohol use: Not on file ??? Drug use: Not on file ??? Sexual activity: Not on file Other Topics Concern ??? Not on file Social History Narrative Review of Systems Pertinent items are noted in HPI Objective: BP 120/88 (BP SITE: LEFT ARM, BP POSITION: SITTING, BP CUFF SIZE: Adult) Pulse 89 Temp 98.2 ??F (Oral) Resp 16 Ht 1.727 m (5' 8 ) Wt 90.7 kg (200 lb) SpO2 97% BMI 30.41 kg/m2 Oxygens Saturation 97% on room air Exam: General appearance: alert, cooperative, no distress, oriented to person, place, and time, well appearing Head: normocephalic, without trauma Ears: canals clear, tympanic membranes normal, hearing intact to voice Nose: nares open; no septal deviation is noted Throat: no mucous membrane abnormalities, lips, mucosa, and tongue normal; teeth and gums normal Nodes: no cervical, axillary or inguinal adenopathy Lungs: wheezing-diffusely throughout both lungs, harsh cough noted on exam Heart: regular rhythm, normal S1 and S2, without murmurs, gallops or rubs Assessment: Encounter Diagnosis Name Primary? Acute bronchitis, unspecified organism Yes Plan: 1. anti-tussive and Trial of decongestant 2. Follow-up visit in 4 days, or sooner as needed. 3. See orders below 4. Patient referred to PCP if none on file Orders Placed This Encounter ??? albuterol HFA (VENTOLIN HFA) 108 (90 BASE) MCG/ACT inhaler Sig: Inhale 2 Puffs by mouth every 6 hours as needed for Shortness of Breath, Wheezing or Cough Dispense: 1 Inhaler Refill: 0 ??? predniSONE (DELTASONE) 10 MG tablet Sig: Take 1 Tab by mouth 2 times daily for 7 days Dispense: 14 Tab Refill: 0 ??? benzonatate (TESSALON) 200 MG capsule Sig: Take 1 Cap by mouth 3 times daily as needed for Cough Dispense: 30 Cap Refill: 0 No results found for this or any previous visit (from the past 24 hour(s)). documented in this encounter Plan of Treatment Not on file documented as of this encounter Visit Diagnoses Diagnosis Acute bronchitis, unspecified organism- Primary documented in this encounter Care Teams Soil Field Technician Relationship Specialty Start Date End Date Layton Doan MD [address] [address] PCP - General Family Medicine 11/02/16 documented as of this encounter
--- OUTSIDE RECORDS SUMMARY | 2024-08-07 09:06 | XMS_ITS | Encounter Summary ---
Author Organization [facility] Address [address] [place] [address]. [place] [address] [place] [address] Care Team Providers Care Public Health Internship Name Role Phone Layton Doan MD Primary Care Provider +1- [phone] Encounter Details Date Type Department Care Team (Late st Contact Info) Description 05/03/2016 Abstract [facility] [address] [place] [address] An Patel, FURNACE DOOR TENDER [address] [facility] 47 [place] [address] Social History Tobacco Use Types Packs/Day Years Used Date Smoking Tobacco: Never Assessed Comments Unknown Sex and Gender Information Value Date Recorded Sex Assigned at Not on file Legal Sex Female 8:13 PM CDT Gender Identity Not on file Sexual Orientation Not on file documented as of this encounter Plan of Treatment Not on file documented as of this encounter Procedures Procedure Name Priority Date/Time Associated Diagnosis Comments BMP W IONIZED CA WH BLOOD STAT 05/03/2016 7:27 PM CDT CHORIONIC GONADOTROPIN HCG QL STAT 05/03/2016 7:27 PM CDT documented in this encounter Results * CHORIONIC GONADOTROPINHCG QL (05/03/2016 7:27 PM CDT) PREG SCREEN-SERUM NEGATIVE 05/03/2016 7:53 PM CDT [facility] Comment: TESTING PERFORMED AT [facility] [address] [place] [address] ??[phone] ITZEL MUNOZ M.D., PILLOWCASE TURNER 05/03/2016 7:27 PM CDT 05/03/2016 7:37 PM CDT us Generic Conversion Md [facility] Final R esult [facility] [address] [place] [id number], * (ABNORMAL) BMP W IONIZED CA WH BLOOD (05/03/2016 7:27 PM CDT) GLUCOSE POC 105(H) 70 - 99 mg/dL 05/03/2016 7:38 PM CDT [facility] Comment: TESTING PERFORMED AT [address] ??[id number] ITZEL MUNOZ M.D., PILLOWCASE TURNER BUN WHOLE BLOOD 10 8 - 23 mg/dL 05/03/2016 7:38 PM CDT [facility] CREATININE WHOLE BLOOD 0.7 0.60 - 1.10 mg/dL 05/03/2016 7:38 PM CDT [facility] SODIUM WHOLE BLOOD 138 136 - 145 mmol/L 05/03/2016 7:38 PM CDT [facility] POTASSIUM WHOLE BLOOD 3.8 3.5 - 5.1 mmol/L 05/03/2016 7:38 PM CDT [facility] CHLORIDE WHOLE BLOOD 104 98 - 107 mmol/L 05/03/2016 7:38 PM CDT [facility] POC CO2 WHOLE BLOOD 22 22 - 29 mmol/L 05/03/2016 7:38 PM CDT [facility] CA IONIZED WH BLOOD 1.15 1.12 - 1.32 mmol/L 05/03/2016 7:38 PM CDT [facility] ANION GAP 15.8 8 - 20 MMOL/L 05/03/2016 7:38 PM CDT [facility] EGFR NON-AFR. AMER. >60 >60 mL/min/1.7 [facility] 05/03/2016 7:38 PM CDT [facility] EGFR AFR. AMER. >60 >60 mL/min/1.7 [facility] 05/03/2016 7:38 PM CDT [facility] Comment: NOTE: eGFR is not calculated for patients <18 years of age. This is an estimated GFR (CKD EPI) and should not be used for calculating drug doses. 05/03/2016 7:27 PM CDT 05/03/2016 7:37 PM CDT us Generic Conversion Md [facility] Final R esult [facility] [address] [place] [address], documented in this encounter Visit Diagnoses Diagnosis Chronic sinusitis Unspecified sinusitis (chronic) documented in this encounter Care Teams Public Health Internship Relationship Specialty Start Date End Date Layton Doan MD [address] [place] [address] PCP - General 05/03/16 documented as of this encounter
--- OUTSIDE RECORDS SUMMARY | 2024-08-07 09:06 | XMS_ITS | Encounter Summary ---
Author Organization [facility] Address [address] [place] [address]. [place], [place] [id number] [place] [address] Care Team Providers Care Scarfer Operator Name Role Phone Layton Doan MD Primary Care Provider +1- [phone] Encounter Details Date Type Department Care Team (Late st Contact Info) Description 06/19/2017 [place] [address] , Generic Conversion, Social History Tobacco Use Types Packs/Day Years [...] on filedocumented in this encounter Care Teams Scarfer Operator Relationship Specialty Start Date End Date Layton Doan MD [address] [place] [address] PCP - General 05/03/16 documented as of this encounter
--- OUTSIDE RECORDS SUMMARY | 2024-08-07 09:06 | XMS_ITS | Encounter Summary ---
Author Organization [facility] Address [address] [place] [address]. [place] [address] [place] [address] Care Team Providers Care Cephalometric Technician Name Role Phone Layton Doan MD Primary Care Provider +1- [phone] Layton Doan MD Primary Care Provider + [phone] Layton Doan MD Primary Care Provider + [phone] Encounter Details Date Type Department Care Team (Late st Contact Info) Description 11/25/[address] [facility] [address] [place], [place] [phone] Сергей Be, BONNIE [address] [address] Social History Tobacco Use Types Packs/Day Years [...] bronchitis documented in this encounter Care Teams Cephalometric Technician Relationship Specialty Start Date End Date Layton Doan MD [address] [address] PCP - General 05/03/16 Layton Doan MD [address] [address] PCP - General 04/28/16 05/02/16 Layton Doan MD [address] [address] PCP - General 11/25/14 04/27/16 documented as of this encounter
--- OUTSIDE RECORDS SUMMARY | 2024-08-07 09:06 | XMS_ITS | Encounter Summary ---
Author Organization [facility] Address [address] [place] [address]. [place], [place] [address] [place] [address] Care Team Providers Care Parts Expediter Name Role Phone Layton Doan MD Primary Care Provider +1- [phone] Layton Doan MD Primary Care Provider +1- [phone] Encounter Details Date Type Department Care Team (Late st Contact Info) Description 04/28/[address] [facility] [address] [place], [place] [id number] An Patel, RACKER OCTAVE BOARD [address] [facility] [address] [place], [place] [address] Social History Tobacco Use Types Packs/Day Years [...] Procedure Name Priority Date/Time Associated Diagnosis Comments CULTURE STREP A Routine 04/28/2016 5:30 PM CDT RAPID STREP A STAT 04/28/2016 5:30 PM CDT documented in this encounter Results * CULTURE STREP A (04/28/2016 5:30 PM CDT) SPEC DESCRIPTION THROAT 04/28/2016 5:56 PM CDT [facility] SPECIAL REQUESTS NO SPECIAL REQUEST 04/28/2016 5:56 PM CDT [facility] CULTURE RESULT NO STREPTOCOCCUS PYOGENES (GROUP A) ISOLATED 05/01/2016 11:16 AM CDT [facility] THROAT SWAB / Unknown 04/28/2016 5:30 PM CDT 04/28/2016 5:55 PM CDT us Generic Conversion Md [facility]OD MICROBIOLOG[facility] - GENERAL ORDERABLES Final Result Performing Organization Address [facility] de Phone Number [facility] [address] [place] [address], [place] [phone] * RAPID STREP A (04/28/2016 5:30 PM CDT) SPECIMEN TYPE THROAT 04/28/2016 5:39 PM CDT [facility] RAPID STREP TEST NEGATIVE NEGATIVE 04/28/2016 5:54 PM CDT [facility] Comment: TESTING PERFORMED AT [facility] [address] [place] [address] ??[id number] ITZEL MUNOZ M.D., TERMINATION CLERK THROAT SWAB / Unknown 04/28/2016 5:30 PM CDT 04/28/2016 5:46 PM CDT us Generic Conversion Md [facility] MICROBIOLOG[facility] - GENERAL ORDERABLES Final Result Performing Organization Address [facility] de Phone Number [facility] [address] [place] [address], documented in this encounter Visit Diagnoses Diagnosis Chronic sinusitis Unspecified sinusitis (chronic) documented in this encounter Care Teams Parts Expediter Relationship Specialty Start Date End Date Layton Doan MD [address] [place] [address] PCP - General 05/03/16 Layton Doan MD [address] [place] [address] PCP - General 04/28/16 05/02/16 documented as of this encounter
--- OUTSIDE RECORDS SUMMARY | 2024-08-07 09:06 | XMS_ITS | Clinical Summary ---
Author Organization [facility] Address [address] [place] [address]. [place], [place] [address] [place] [address] Care Team Providers Care Special Shopper Name Role Phone Layton Doan MD Primary Care Provider +1- [phone] Social History Tobacco Use Types Packs/Day Years Used Date Smoking Tobacco: Never Assessed Comments Unknown Sex and Gender Information Value Date Recorded Sex Assigned at Not on file Legal Sex Female 8:13 PM CDT Gender Identity Not on file Sexual Orientation Not on file Plan of Treatment Health Maintenance Due Date Last Done Comments Cervical Cancer Screening Pa p Smear (Age 30 to 64) Every 3 Years 1985 Annual Physical 1988 Hepatitis C 2003 DTaP, Tdap and Td Vaccines ( 1 - Tdap) 2004 Hepatitis B Vaccines (1 of 3 - 19+ 3-dose series) 2004 Cervical Cancer Screening Pa p with HPV Testing (Age 30 to 64) Every 5 Years 2015 Cervical Cancer Screening with HPV 2015 COVID-19 Vaccine (2023-2 5 season) 2024 Influenza Adult (#1) 2024 HPV Vaccines Aged Out No longer eligi ble based on patient's age to complete this topic Meningococcal Vaccine Aged Out No sunitha duane eligible based on patient's age to complete this topic Pneumococcal Vaccine: Pediat rics (0 to 5 Years) and At-Risk Patients (6 to 64 Years) Aged Out No longer eligible b ased on patient's age to complete this topic RSV Immunizations Under 20 Months Aged Out No longer eligible based on patient's age to complete this topic Care Teams Special Shopper Relationship Specialty Start Date End Date Layton Doan MD [address] [place] [address] PCP - General 05/03/16
--- OUTSIDE RECORDS SUMMARY | 2024-08-07 09:10 | XMS_ITS | Continuity of Care Document ---
Author Organization [facility] Address [address] [place] [address] Phone Care Team Providers Care Worm Grower Name Role Phone Unavailable Unavailable Unavailable Advance Directives Directive Yes / No Effective Date File Name No Information Encounters Encounter Description Practice Location Reason(s) For Visit Diagnoses Date Provider Providers Copied on Encounter [facility], [address] [address], [place], [place], [id number], [place] tel:[phone] [facility] No Information 7 No Information Referring Provider: HEIDY DOAN, [address] [place] [address],[place], [address]. tel:[phone] Family History Family Member Type Diagnosis Age At Onset No Information Payers Payer name Insurance type Covered republican ID Authorlisaa bjorn(s) [employer] [facility] P[employer] [id number] Social History Type Description Quantity Date Captured Comments Sex Female Smoking Status No Information Chief Complaint And Reason For Visit No Information History Of Present Illness Encounter Date Complaint History Of Prese nt Illness No Information Instructions Date Instruction Additional Infor mation No Information Assessments Type Assessment Date No Information
--- OUTSIDE RECORDS SUMMARY | 2024-08-07 09:10 | XMS_ITS | Encounter Summary ---
Author Organization [facility] Address [address] [place] [address] Care Team Providers Care Veneer Taper Name Role Phone Unavailable Primary Care Provider Unavailabl e Reason for Visit * Outpatient Services (Routine) - Closed Specialty Diagnoses / Procedures Referred By Contadina t Referred To Contact Diagnoses size accords with dates, second trimester Procedures US OB DETAIL SINGLE GEST US OB 14+ WKS SINGLE GEST Benjamín Miller MD [address] [address] Referral ID Status Reason Start Date Expiration Date Visits Re quested Visits Authorized [id number] Closed 03/25/2017 04/25/2018 1 1 Encounter Details Date Type Department Care Team (Latest Contact Info) Description 04/08/2017 2:50 PM CDT - 04/08/2017 11:59 PM CDT Hospital Encounter [facility] Maternal and Health [facility] [address] [place] [phone] Benjamín Miller MD [address] [address] Discharge Disposition: Home or Self Care Social History Tobacco Use Types Packs/Day Years Used Date Smoking Tobacco: Never Assessed Sex and Gender Information Value Date Recorded Sex Assigned at Not on file Gender Identity Not on file Sexual Orientation Not on file documented as of this encounter Plan of Treatment Not on file documented as of this encounter Procedures Procedure Name Priority Date/Time Associated Diagnosis Comments US OB DETAIL SINGLE GEST Routine 04/08/2017 4:07 PM CDT size accords with dates, second trimester documented in this encounter Results * US OB DETAIL SINGLE GEST (04/08/2017 4:07 PM CDT) Anatomical Region Laterality Modality Pelvis Ultrasound 04/08/2017 3:08 PM CDT Benjamín Miller MD US ORDERABLES documented in this encounter Visit Diagnoses Diagnosis size accords with dates, second trimester documented in this encounter
--- OUTSIDE RECORDS SUMMARY | 2024-08-07 09:10 | XMS_ITS | Clinical Summary ---
Author Organization [address] Address [address] [facility] [address] [place] [address] Phone Care Team Providers Care Cardiology Nurse Practitioner Name Role Phone Unavailable Primary Care Provider Unavailabl e Social History Tobacco Use Types Packs/Day Years Used Date Smoking Tobacco: Never Assessed Sex and Gender Information Value Date Recorded Sex Assigned at Not on file Gender Identity Not on file Sexual Orientation Not on file Plan of Treatment Health Maintenance Due Date Last Done Comments DTAP/TDAP/TD VACCINES (1 - Tdap) 2004 HEPATITIS B VACCINES (1 of 3 - 19+ 3-dose series) 2004 CERVICAL CANCER SCREENING 2015 INFLUENZA VACCINE (#1) 2024 HPV VACCINES Aged Out No longer eligi ble based on patient's age to complete this topic PNEUMOCOCCAL VACCINE 0-64 YEARS Aged Out No longer eligible based on patient's age to complete this topic
--- OUTSIDE RECORDS SUMMARY | 2024-08-07 09:10 | XMS_ITS | Encounter Summary ---
Author Organization [facility] Address [address] [place] [address] Care Team Providers Care Protocol Officer Name Role Phone Unavailable Primary Care Provider Unavailabl e Reason for Referral * Outpatient Services (Routine) - Closed Specialty Diagnoses / Procedures Referred By Contac t Referred To Contact Radiology Diagnoses size accords with dates, second trimester Procedures US OB FOLLOW UP PER FETUS Benjamín Miller MD [address] [address] [facility] M[facility] And [facility] [address] [place] [address] Referral ID Status Reason Start Date Expiration Date Visits Re quested Visits Authorized [id number] Closed 04/08/2017 05/09/2018 1 1 Reason for Visit * Outpatient Services (Routine) - Closed Specialty Diagnoses / Procedures Referred By Contac t Referred To Contact Radiology Diagnoses size accords with dates, second trimester Procedures US OB FOLLOW UP PER FETUS Benjamín Miller MD [address] [address] [facility] [address] [place] [address] Referral ID Status Reason Start Date Expiration Date Visits Re quested Visits Authorized [id number] Closed 04/08/2017 05/09/2018 1 1 Encounter Details Date Type Department Care Team (Latest Contact Info) Description 05/06/2017 2:48 PM CDT - 05/06/2017 11:59 PM CDT Hospital Encounter [facility] Maternal and Health [facility] [address] [place] [address] Benjamín Miller MD [address] [place] [address] Discharge Disposition: Home or Self Care [...] Priority Date/Time Associated Diagnosis Comments US OB FOLLOW UP PER FETUS Routine 05/06/2017 3:44 PM CDT size accords with dates, second trimester documented in this encounter Results * US OB FOLLOW UP PER FETUS (05/06/2017 3:44 PM CDT) Anatomical Region Laterality Modality Pelvis Ultrasound 05/06/2017 3:08 PM CDT Impressions 05/06/2017 3:52 PM CDT IMPRESSION ----- Single intrauterine Appropriate interval growth over all -Anaomy is completd today and appears normal. Normal SHASHI. movement is noted No further follow up has been scheduled. Narrative 05/06/2017 3:52 PM CDT Follow Up Basic ----- Pat. Name: ARELIS TADEO Study Date: 05/06/2017 3:08pm Pat. NO: [id number] Referring ??MD: Malinda Asencio Site: [facility] [place] [facility] Grader: Barbara Victor RDMS : 1985 Age: 31 ----- INDICATION ----- Maternal Asthma Maternal Obesity (bmi>30 but bmi<40) Other Condition ?Complete anatomy, declines genetcs CODING ----- Diagnosis ? O99.512: Diseases of the respiratory system complicating . ?O99.212: Obesity complicating . ?E66.8: Other obesity. ?XXX.10: Other condition. ?Z3A.24: Weeks Gestation of . Procedures ?92958: OB follow-up/Target per fetus. HISTORY ----- OB History ?: 2. Para: 0. ?A1. ?Terminations: 1. METHOD ----- Transabdominal ultrasound examination. Good view. ----- Merino . Number of fetuses: 1. DATING ----- LMP on: 11/15/2016 GA by LMP 24 w + 4 d ROSCOE by LMP: 08/22/2017 Ultrasound examination on: 05/06/2017 GA by U/S based upon: AC, BPD, EFW, Femur, HC GA by U/S 24 w + 0 d ROSCOE by U/S: 08/26/2017 Method of dating: Restore dating from previous exam Assigned: Dating performed on 04/08/2017, based on the LMP Assigned GA 24 w + 4 d Assigned ROSCOE: 08/22/2017 BIOMETRY ----- Main Biometry: BPD ?58.3 ? mm ?19% ? 23w 6d ? Hadlock HC ? 219.4 ?mm ?13% ? 24w 0d ? Hadlock AC ? 193.2 ?mm ?25% ? 24w 0d ? Hadlock Femur ?43.3 ? mm ?25% ? 24w 1d ? Hadlock Humerus ?39.7 ? mm ?28% ? 24w 1d ? Balta Weight Calculation: EFW ?658 ?g ? 21% ? 23w 6d ? Hadlock EFW (lb,oz) ?1 lb 7 ? oz Calculated by ?Hadlock (PED-HO-SS-FL) Proportionality Ratios: HC / AC ?1.14 ? 52% ?Nicolaides FL / BPD ? 0.74 ? FL / AC ?0.22 ? GENERAL EVALUATION ----- Cardiac activity: present. FHR 155 bpm. movements: visualized. Presentation: cephalic. Placenta: Placental site: posterior. Umbilical cord: Cord vessels: 3 vessel cord. Amniotic fluid: MVP 4.3 cm. ANATOMY ----- The following structures were visualized with normal appearance: Head: Head shape and size appear normal. Brain: Cerebellum, choroid plexus, cisterna magna, lateral cerebral ventricles, midline falx and cavum septi pellucidi appear normal. Face: Profile, nose, upper lip appear normal. Thorax: No thoracic abnormalities detected. Heart: Four chamber view of the heart and outflow tracts appear normal. Abdominal wall: Abdominal wall and cord insertion appear normal. Stomach: Stomach size and situs appear normal. Kidneys: Kidneys and adrenal glands appear normal bilaterally. Bladder: size and shape. The following structures were visualized: Heart ? Ductal arch view. Upper extrem. Lower extrem. Other findings: Spine: previously seen. Procedure Note Arian Rosenthal, DO - 05/06/2017 Follow Up Basic ----- Pat. Name:Iman TADEO Date:05/06/2017 3:08pm Pat. NO: [id number] :Malinda Asencio [facility]:Barbara Victor RDMS :1985Age:31 ----- INDICATION ----- Maternal Asthma Maternal Obesity (bmi>30 but bmi<40) Other Condition Complete anatomy,declines genetcs CODING ----- Diagnosis O99.512: Diseases of the respiratory systemcomplicating . O99.212: Obesity complicating . E66.8: Other obesity. XXX.10: Other condition. Z3A.24: Weeks Gestation of . Procedures 97429: OB follow-up/Target per fetus. HISTORY ----- OB History : 2. Para: 0. A1. Terminations: 1. METHOD ----- Transabdominal ultrasound examination. Good view. ----- Merino . Number of fetuses: 1. DATING ----- LMP on:11/15/2016 GA by LMP24 w + 4 d ROSCOE by LMP:08/22/2017 Ultrasound examination on:05/06/2017 GA by U/S based upon:AC, BPD, EFW, Femur, HC GA by U/S24 w + 0 d ROSCOE by U/S:08/26/2017 Method of dating:Restore dating from previous exam Assigned:Dating performed on 04/08/2017, based on the LMP Assigned GA24 w + 4 d Assigned ROSCOE:08/22/2017 BIOMETRY ----- Main Biometry: BPD 58.3 mm 19% 23w 6dHadlock HC 219.4 mm 13% 24w 0dHadlock AC 193.2 mm 25% 24w 0dHadlock Femur 43.3 mm 25% 24w 1dHadlock Humerus 39.7 mm 28% 24w 1dJeanty Weight Calculation: EFW 658 g 21% 23w 6dHadlock EFW (lb,oz) 1 lb 7 oz Calculated by Frederick (NTM-IP-SO-FL) Proportionality Ratios: HC / AC 1.14 52%Nicolaides FL / BPD 0.74 FL / AC 0.22 GENERAL EVALUATION ----- Cardiac activity: present. FHR 155 bpm. movements: visualized. Presentation: cephalic. Placenta: Placental site: posterior. Umbilical cord: Cord vessels: 3 vessel cord. Amniotic fluid: MVP 4.3 cm. ANATOMY ----- The following structures were visualized with normal appearance: Head: Head shape and size appear normal. Brain: Cerebellum, choroid plexus, cisterna magna, lateral cerebralventricles, midline falx and cavum septi pellucidi appear normal. Face: Profile, nose, upper lip appear normal. Thorax: No thoracic abnormalities detected. Heart: Four chamber view of the heart and outflow tracts appear normal. Abdominal wall: Abdominal wall and cord insertion appear normal. Stomach: Stomach size and situs appear normal. Kidneys: Kidneys and adrenal glands appear normal bilaterally. Bladder: size and shape. The following structures were visualized: Heart Ductal arch view. Upper extrem. Lower extrem. Other findings: Spine: previously seen. IMPRESSION IMPRESSION ----- Single intrauterine Appropriate interval growth over all -Anaomy is completd today and appears normal. Normal SHASHI. movement is noted No further follow up has been scheduled. Benjamín Miller MD ORDERABLES documented in this encounter Visit Diagnoses Diagnosis size accords with dates, second trimester documented in this encounter
--- OUTSIDE RECORDS SUMMARY | 2024-08-07 10:02 | XMS_ITS | Encounter Summary ---
Author Organization [facility] Address [address] [place] [address] Care Team Providers Care Salesperson Shoes Name Role Phone Layton Doan MD Primary Care Provider + Reason for Visit * Reason Onset Date Comments Follow-up 11/08/2016 Encounter Details Date Type Department Care Team ([facility] st Contact Info) Description 11/08/2016 Telephone [facility] [facility] [address] [phone] Cyndy Rosenberg Follow-up Social History Tobacco Use [...] on filedocumented in this encounter Care Teams Salesperson Shoes Relationship Specialty Start Date End Date Layton Doan MD [address] [place] [id number] PCP - General Family Medicine 11/02/16 documented as of this encounter
--- OUTSIDE RECORDS SUMMARY | 2024-08-07 10:02 | XMS_ITS | Patient Health Summary ---
Author Organization [facility] [employer] Address [address] [place] [address] Care Team Providers Care Transport Tank Technician Name Role Phone Layton Doan MD Primary Care Provider + Note from [facility],non-owned Affiliates and Associated Physician Practices is amultiple site organization consisting of ambulatory clinics and hospital sitesin [place], [place], [place] and [place]. This disclosure is being madepursuant to the Care Everywhere program and may not contain all information available regarding this patient. Last updated 18.[facility] [employer] Allergies No known active allergies Medications * [...] 30.41 12/18/2017 2:05 PM CDT Care Teams Transport Tank Technician Relationship Specialty Start Date End Date Layton Doan MD [address] [address] PCP - General Family Medicine 11/02/16
--- OUTSIDE RECORDS SUMMARY | 2024-08-07 10:02 | XMS_ITS | Clinical Summary ---
Author Organization [facility] [employer] Address [address] [place] [address] Care Team Providers Care Borematic Operator Name Role Phone Layton Doan MD Primary Care Provider + Source Comments [facility] [employer],non-owned Affiliates and Associated Physician Practices is amultiple site organization consisting of ambulatory clinics and hospital sitesin [place], [place], [place] and [place]. This disclosure is being madepursuant to the Care Everywhere program and may not contain all information available regarding this patient. Last updated 18.[employer] Allergies No known active allergies Medications * [...] age to complete this topic Care Teams Borematic Operator Relationship Specialty Start Date End Date Layton Doan MD [address] [place] [address] [address] [place] [address] PCP - General Family Medicine 11/02/16
--- OUTSIDE RECORDS SUMMARY | 2024-08-07 10:02 | XMS_ITS | Encounter Summary ---
Author Organization [facility] Address [address] [place] [address]. [place] [address] [place] [address] Care Team Providers Care Laborer Tanbark Name Role Phone Layton Doan MD Primary Care Provider +1- [phone] Layton Doan MD Primary Care Provider + [phone] Layton Doan MD Primary Care Provider + [phone] Encounter Details Date Type Department Care Team (Late st Contact Info) Description 11/25/[address] [facility] [address] [place], [place] [phone] Сергей Be, BONNIE [address] [address] Social History Tobacco Use Types [...] bronchitis documented in this encounter Care Teams Laborer Tanbark Relationship Specialty Start Date End Date Layton Doan MD [address] [address] PCP - General 05/03/16 Layton Doan MD [address] [address] PCP - General 04/28/16 05/02/16 Layton Doan MD [address] [address] PCP - General 11/25/14 04/27/16 documented as of this encounter
--- OUTSIDE RECORDS SUMMARY | 2024-08-07 10:02 | XMS_ITS | Encounter Summary ---
Author Organization [facility] Address [address] [place] [address] Care Team Providers Care Contact Centre Supervisor Name Role Phone Layton Doan MD Primary Care Provider + Reason for Visit * Reason Comments Congestion Sinusitis Encounter Details Date Type Department Care Team (Late st Contact Info) Description 11/06/2016 2:00 PM CDT Office Visit [facility] AT [address] [phone] Provider, [facility] Acute recurrent pansinusitis (Primary Dx); Acute bronchitis, [...] refuse treatment. The above information is an gericare aide only. It is not intended as medical advice for individual conditions or treatments. Talk to your doctor, nurse or pharmacist before following any medical regimen to see if it is safe and effective for you. ?? 2016 [employer]. Information is for End User's use only and may not be sold, redistributed or otherwise used for commercial purposes. All illustrations and images included in CareNotes?? are the copyrighted property of [employer] or [employer]. Acute Bronchitis WHAT YOU NEED TO KNOW: [...] them during your follow-up visits. ?? 2016 [employer]. Information is for End User's use only and may not be sold, redistributed or otherwise used for commercial purposes. All illustrations and images included in CareNotes?? are the copyrighted property of [employer] or [employer]. The above information is an gericare aide only. It is not intended as [...] ??? Sinusitis Primary Care Physician is Layton Doan MD [...] 14 Tab Refill: 0 Courtney Mckeon APRN, SITE SURVEYOR-BC documented in this encounter Plan of Treatment Not on file documented as of this encounter Visit Diagnoses Diagnosis Acute recurrent pansinusitis- Primary Other acute sinusitis Acute bronchitis, unspecified organism documented in this encounter Care Teams Contact Centre Supervisor Relationship Specialty Start Date End Date Layton Doan MD [address] [address] PCP - General Family Medicine 11/02/16 documented as of this encounter
--- OUTSIDE RECORDS SUMMARY | 2024-08-07 10:02 | XMS_ITS | Encounter Summary ---
Author Organization [facility] Address [address] [place] [address] Care Team Providers Care Blower Operator Name Role Phone Layton Doan MD Primary Care Provider + Reason for Visit * Reason Comments HSV Encounter Details Date Type Department Care Team (Late st Contact Info) Description 12/18/2017 2:00 PM CDT Office Visit [facility] AT [address] [phone] Provider, [facility] [place] Herpes simplex labialis (Primary Dx); Oral aphthous [...] Patient Instructions * Patient Instructions* Courtney Mckeon, OUTBOARD MOTOR TESTER-SKULL CHOPPER - 12/18/2017 2:15 PM CDT FOR PAIN CONTROL Magic Mouthwash Equal parts liquid antacid (e.g.Maalox) and liquid Children's Benadryl with a couple drops of liquid Anbesol. Gargle (and spit out) every 3-4 hours as needed. Canker Sores LINE INSPECTOR: Canker sores are small ulcers that develop [...] ask them during your visits. ?? 2017 [employer] Information is for End User's use only and may not be sold, redistributed or otherwise used for commercial purposes. All illustrations and images included in CareNotes?? are the copyrighted property of [employer]. or [employer]. The above information is an braid cutter only. It is not intended as medical [...] after you have been treated. ?? 2017 [employer] Information is for End User's use only and may not be sold, redistributed or otherwise used for commercial purposes. All illustrations and images included in CareNotes?? are the copyrighted property of [employer].A.M[employer] Inc. or [employer]. The above information is an braid cutter only. It is not intended as medical [...] 4 tablet Refill: 0 Courtney Mckeon APRN, CHILDREN'S AUTHOR-BC 12/18/2017 2:22 PM documented in this encounter Plan of Treatment Not on file documented as of this encounter Visit Diagnoses Diagnosis Herpes simplex labialis- Primary Herpes simplex without mention of complication Oral aphthous ulcer Oral aphthae documented in this encounter Care Teams Blower Operator Relationship Specialty Start Date End Date Layton Doan MD [address] [address] PCP - General Family Medicine 11/02/16 documented as of this encounter
--- OUTSIDE RECORDS SUMMARY | 2024-08-07 10:02 | XMS_ITS | Encounter Summary ---
Author Organization [facility] Address [address] [facility] [place] [address] Care Team Providers Care House Cleaner Supervisor Name Role Phone Layton Doan MD Primary Care Provider + Reason for Visit * Reason Onset Date Comments Follow-up 11/04/2016 Encounter Details Date Type Department Care Team (Late st Contact Info) Description 11/04/2016 Telephone [facility] [address] [place] [address] Arina Corral, [facility] [address] [place] [address] Follow-up Social History Tobacco Use [...] on filedocumented in this encounter Care Teams House Cleaner Supervisor Relationship Specialty Start Date End Date Layton Doan MD [address] [facility] [address] [place] [address] PCP - General Family Medicine 11/02/16 documented as of this encounter
--- OUTSIDE RECORDS SUMMARY | 2024-08-07 10:02 | XMS_ITS | Encounter Summary ---
Author Organization [facility] Address [address] [place] [address]. [place], [place] [phone] [place] [address] Care Team Providers Care Field Court Researcher Name Role Phone Layton Doan MD Primary Care Provider +1- [phone] Layton Doan MD Primary Care Provider +1- [phone] Encounter Details Date Type Department Care Team (Late st Contact Info) Description 04/28/[address] [facility] [address] [place], [place] [phone] An Patel, DEPLOYMENT ENGINEER [address] [facility] [address] [place], [place] [address] Social History Tobacco Use Types Packs/Day Years [...] SPEC DESCRIPTION THROAT 04/28/2016 5:56 PM CDT [facility] SPECIAL REQUESTS NO SPECIAL REQUEST 04/28/2016 5:56 PM CDT [facility] CULTURE RESULT NO STREPTOCOCCUS PYOGENES (GROUP A) ISOLATED 05/01/2016 11:16 AM CDT [facility] THROAT SWAB / Unknown 04/28/2016 5:30 PM CDT 04/28/2016 5:55 PM CDT us Generic Conversion Md HOOD MICROBIOLOGY - GENERAL ORDERABLES Final Result Performing Organization Address [facility] de Phone Number [facility] [address] [place] [address], [place] [phone] * RAPID STREP A (04/28/2016 5:30 PM CDT) SPECIMEN TYPE THROAT 04/28/2016 5:39 PM CDT [facility] RAPID STREP TEST NEGATIVE NEGATIVE 04/28/2016 5:54 PM CDT [facility] Comment: TESTING PERFORMED AT [facility] [address] [place] [id number] ITZEL MUNOZ M.D., TRIMMER LOADER THROAT SWAB / Unknown 04/28/2016 5:30 PM CDT 04/28/2016 5:46 PM CDT us Generic Conversion Md HOOD MICROBIOLOGY - GENERAL ORDERABLES Final Result Performing Organization Address [facility] de Phone Number [facility] [address] [place] [address], documented in this encounter Visit Diagnoses Diagnosis Chronic sinusitis Unspecified sinusitis (chronic) documented in this encounter Care Teams Field Court Researcher Relationship Specialty Start Date End Date Layton Doan MD [address] [place] [address] PCP - General 05/03/16 Layton Doan MD [address] [place] [address] PCP - General 04/28/16 05/02/16 documented as of this encounter
--- OUTSIDE RECORDS SUMMARY | 2024-08-07 10:02 | XMS_ITS | Encounter Summary ---
Author Organization [facility] Address [address] [place] [address] Care Team Providers Care Receipt And Report Clerk Name Role Phone Layton Doan MD Primary Care Provider + Reason for Visit * Reason Onset Date Comments Follow-up 12/20/2017 Encounter Details Date Type Department Care Team ([facility] st Contact Info) Description 12/20/2017 Telephone [facility] [employer] [facility] AT [address] [phone] Luis Miguel [place] Follow-up Social History Tobacco [...] on filedocumented in this encounter Care Teams Receipt And Report Clerk Relationship Specialty Start Date End Date Layton Doan MD [address] [place] [address] [address] [place] [address] PCP - General Family Medicine 11/02/16 documented as of this encounter
--- OUTSIDE RECORDS SUMMARY | 2024-08-07 10:02 | XMS_ITS | Encounter Summary ---
Author Organization [facility] Address [address] [place] [address] Care Team Providers Care Staff Counsel Name Role Phone Layton Doan MD Primary Care Provider + Reason for Visit * Reason Onset Date Comments Follow-up 06/26/2017 Encounter Details Date Type Department Care Team ([facility] Contact Info) Description 06/26/[address] [facility] Not iT [facility] [address] [address] Provider, [facility] Follow-up Social History Tobacco Use Types Packs/Day [...] on filedocumented in this encounter Care Teams Staff Counsel Relationship Specialty Start Date End Date Layton Doan MD [address] [place] [address] [address] [place] [address] PCP - General Family Medicine 11/02/16 documented as of this encounter
--- OUTSIDE RECORDS SUMMARY | 2024-08-07 10:02 | XMS_ITS | Encounter Summary ---
Author Organization [facility] Address [address] [place] [address] Care Team Providers Care Support Representative Name Role Phone Layton Doan MD Primary Care Provider + Reason for Visit * Reason Comments Cough Encounter Details Date Type Department Care Team ([facility] st Contact Info) Description 11/02/2016 10:00 AM CDT Office Visit [facility] AT [address] [address] Provider, [facility] Acute bronchitis, unspecified organism (Primary Dx) Social [...] original note were not included. Acute Bronchitis TOOL ROOM GEAR MACHINE OPERATOR: Acute bronchitis is swelling and irritation in [...] them during your follow-up visits. ?? 2016 [employer] Information is for End User's use only and may not be sold, redistributed or otherwise used for commercial purposes. All illustrations and images included in CareNotes?? are the copyrighted property of [employer]. or [employer]. The above information is an personal care aide only. It is not intended as [...] Primary documented in this encounter Care Teams Support Representative Relationship Specialty Start Date End Date Layton Doan MD [address] [address] PCP - General Family Medicine 11/02/16 documented as of this encounter
--- OUTSIDE RECORDS SUMMARY | 2024-08-07 10:02 | XMS_ITS | Clinical Summary ---
Author Organization [facility] Address [address] [place] [address]. [place], [place] [address] [place] [address] Care Team Providers Care Prn Occupational Therapist Name Role Phone Layton Doan MD Primary Care Provider +1- [phone] Social History Tobacco Use Types Packs/Day Years [...] age to complete this topic Care Teams Prn Occupational Therapist Relationship Specialty Start Date End Date Layton Dona MD [address] [place] [address] PCP - General 05/03/16
--- OUTSIDE RECORDS SUMMARY | 2024-08-07 10:02 | XMS_ITS | Encounter Summary ---
Author Organization [facility] Address [address] [place] [address] Care Team Providers Care Make Ready Worker Name Role Phone Layton Doan MD Primary Care Provider + Reason for Visit * Reason Comments Sinusitis Encounter Details Date Type Department Care Team (Late st Contact Info) Description 06/24/2017 11:40 AM SANITIZER Office Visit [facility] AT [address] [address] Provider, [facility] Acute maxillary sinusitis, recurrence not specified (Primary [...] Comments Blood Pressure 122/70 06/24/2017 11:48 AM SANITIZER Pulse 110 06/24/2017 11:48 AM SANITIZER Temperature 37.1 ??C (98.8 ??F) 06/24/2017 1 1:48 AM SANITIZER Respiratory Rate 20 06/24/2017 11:4 8 AM SANITIZER Oxygen Saturation 99% 06/24/2017 11: 48 AM SANITIZER Inhaled Oxygen Concentration - - Weight 107.5 kg (237 lb) 06/24/2017 11: 48 AM SANITIZER Patient Height 172.7 cm (5' 8 ) 06/24/2017 11:4 8 AM SANITIZER Body Mass Index 36.04 06/24/2017 11:48 AM SANITIZER documented in this encounter Patient Instructions * Patient Instructions* Arina Corral APRN-JENNIE - 06/24/2017 12:04 PM SANITIZER Sinusitis SOFTWARE SYSTEMS ANALYST: Sinusitis is inflammation or infection of your [...] ask them during your visits. ?? 2016 [employer] Information is for End User's use only and may not be sold, redistributed or otherwise used for commercial purposes. All illustrations and images included in CareNotes?? are the copyrighted property of [employer]. or [employer]. The above information is an educational programming director only. It is not intended as medical advice for individual conditions or treatments. Talk to your doctor, nurse or pharmacist before following any medical regimen to see if it is safe and effective for you. TIZER documented in this encounter Progress Notes * [...] previous visit (from the past 24 hour(s)). TIZER documented in this encounter Plan of Treatment Not on file documented as of this encounter Visit Diagnoses Diagnosis Acute maxillary sinusitis, recurrence not specified- Primary documented in this encounter Care Teams Make Ready Worker Relationship Specialty Start Date End Date Layton Doan MD [address] [address] PCP - General Family Medicine 11/02/16 documented as of this encounter
--- OUTSIDE RECORDS SUMMARY | 2024-08-07 10:02 | XMS_ITS | Encounter Summary ---
Author Organization [facility] Address [address] [place] [address]. [place] [address] [place] [address] Care Team Providers Care Lodging Facilities Attendant Name Role Phone Layton Doan MD Primary Care Provider +- [phone] Layton Doan MD Primary Care Provider + [phone] Layton Doan MD Primary Care Provider + [phone] Layton Doan MD Primary Care Provider +- [phone] Encounter Details Date Type Department Care Team (Late st Contact Info) Description 08/12/[address] [facility] [address] [place], [place] [id number] Althea Raphael MD [address] [facility] [address] [place] [address] Social History Tobacco Use Types [...] bronchitis documented in this encounter Care Teams Lodging Facilities Attendant Relationship Specialty Start Date End Date Layton Doan MD [address] [address] PCP - General 05/03/16 Layton Doan MD [address] [place] [address] PCP - General 04/28/16 05/02/16 Layton Doan MD [address] [address] PCP - General 11/25/14 04/27/16 Layton Doan MD [address] [address] PCP - General 08/12/13 11/24/14 documented as of this encounter
--- OUTSIDE RECORDS SUMMARY | 2024-08-07 10:02 | XMS_ITS | Encounter Summary ---
Author Organization [facility] Address [address] [place] [address]. [place] [address] [place] [address] Care Team Providers Care Executive Sales Assistant Name Role Phone Layton Doan MD Primary Care Provider +1- [phone] Encounter Details Date Type Department Care Team (Late st Contact Info) Description 05/03/2016 Abstract [facility] [address] [place] [address] An Patel, SCALE EXPERT [address] [facility] [address] [place] [address] Social History Tobacco Use Types [...] PREG SCREEN-SERUM NEGATIVE 05/03/2016 7:53 PM CDT [facility] Comment: TESTING PERFORMED AT [facility] [address] [place] [address] ??[address] ITZEL MUNOZ M.D., ENVIRONMENTAL REMEDIATION CONSULTANT 05/03/2016 7:27 PM CDT 05/03/2016 7:37 PM CDT us Generic Conversion Md [facility] Final R esult [facility] [address] [id number], * (ABNORMAL) BMP W IONIZED CA WH BLOOD (05/03/2016 7:27 PM CDT) GLUCOSE POC 105(H) 70 - 99 mg/dL 05/03/2016 7:38 PM CDT [facility] Comment: TESTING PERFORMED AT [address] ??[id number] ITZEL MUNOZ M.D., ENVIRONMENTAL REMEDIATION CONSULTANT BUN WHOLE BLOOD 10 8 - 23 mg/dL 05/03/2016 7:38 PM CDT [facility] CREATININE WHOLE BLOOD 0.7 0.60 - 1.10 mg/dL 05/03/2016 7:38 PM CDT [facility] SODIUM WHOLE BLOOD 138 136 - 145 mmol/L 05/03/2016 7:38 PM CDT [facility] POTASSIUM WHOLE BLOOD 3.8 3.5 - 5.1 mmol/L 05/03/2016 7:38 PM CDT [facility] CHLORIDE WHOLE BLOOD 104 98 - 107 mmol/L 05/03/2016 7:38 PM CDT [facility] POC CO2 WHOLE BLOOD 22 22 - 29 mmol/L 05/03/2016 7:38 PM CDT [facility] CA IONIZED WH BLOOD 1.15 1.12 - 1.32 mmol/L 05/03/2016 7:38 PM CDT [facility] ANION GAP 15.8 8 - 20 MMOL/L 05/03/2016 7:38 PM CDT [facility] EGFR NON-AFR. AMER. >60 >60 mL/min/1.7 [facility] 05/03/2016 7:38 PM CDT [facility] EGFR AFR. AMER. >60 >60 mL/min/1.7 [facility] 05/03/2016 7:38 PM CDT [facility] Comment: NOTE: eGFR is not calculated for patients <18 years of age. This is an estimated GFR (CKD EPI) and should not be used for calculating drug doses. 05/03/2016 7:27 PM CDT 05/03/2016 7:37 PM CDT us Generic Conversion Md [facility] Final R esult [facility] [address] [place] [address], documented in this encounter Visit Diagnoses Diagnosis Chronic sinusitis Unspecified sinusitis (chronic) documented in this encounter Care Teams Executive Sales Assistant Relationship Specialty Start Date End Date Layton Doan MD [address] [place] [address] PCP - General 05/03/16 documented as of this encounter
--- OUTSIDE RECORDS SUMMARY | 2024-08-07 10:02 | XMS_ITS | Encounter Summary ---
Author Organization [facility] Address [address] [place] [address]. [place], [place] [address] [place] [address] Care Team Providers Care Child Life Specialist Name Role Phone Layton Doan MD Primary Care Provider +1- [phone] Encounter Details Date Type Department Care Team (Late st Contact Info) Description 06/19/2017 [place] [address] , Generic Conversion, Social History [...] on filedocumented in this encounter Care Teams Child Life Specialist Relationship Specialty Start Date End Date Layton Doan MD [address] [place] [address] PCP - General 05/03/16 documented as of this encounter
--- OUTSIDE RECORDS SUMMARY | 2024-08-07 10:02 | XMS_ITS | Referral Summary ---
Author Organization [facility] Address [address] [place] [address] Care Team Providers Care Engine Hostler Name Role Phone Layton Doan MD Primary Care Provider + Source Comments [facility],non-owned Affiliates and Associated Physician Practices is amultiple site organization consisting of ambulatory clinics and hospital sitesin [place], [place], [place] and [place]. This disclosure is being madepursuant to the Care Everywhere program and may not contain all information available regarding this patient. Last updated 18.[facility] Allergies No known active allergies Medications * [...] of Treatment Not on file Care Teams Engine Hostler Relationship Specialty Start Date End Date Layton Doan MD [address] [facility] [address] [place] [address] PCP - General Family Medicine 11/02/16
--- OUTSIDE RECORDS SUMMARY | 2024-08-07 10:05 | XMS_ITS | Encounter Summary ---
Author Organization [facility] Address [address] [place] [address] Care Team Providers Care Scheduling Coordinator Name Role Phone Unavailable Primary Care Provider Unavailabl e Reason for Referral * Outpatient Services (Routine) - Closed Specialty Diagnoses / Procedures Referred By Contac t Referred To Contact Radiology Diagnoses size accords with dates, second trimester Procedures US OB FOLLOW UP PER FETUS Benjamín Miller MD [address] [address] [facility] [address] [place] [address] Referral ID Status Reason Start Date Expiration Date Visits Re quested Visits Authorized [id number] Closed 04/08/2017 05/09/2018 1 1 Reason for Visit * Outpatient Services (Routine) - Closed Specialty Diagnoses / Procedures Referred By Contac t Referred To Contact Radiology Diagnoses size accords with dates, second trimester Procedures US OB FOLLOW UP PER FETUS Benjamín Miller MD [address] [address] [facility] [address] [place] [address] Referral ID Status Reason Start Date Expiration Date Visits Re quested Visits Authorized [id number] Closed 04/08/2017 05/09/2018 1 1 Encounter Details Date Type Department Care Team (Latest Contact Info) Description 05/06/2017 2:48 PM CDT - 05/06/2017 11:59 PM CDT Hospital Encounter [facility] [address] [place] [address] Benjamín Miller MD [address] [place] [address] [place] [address] Discharge Disposition: Home or Self [...] TADEO Study Date: 05/06/2017 3:08pm Pat. NO: [id number] Referring ??MD: Malinda Asencio Site: [facility] Coordinator: Barbara Victor RDMS : 1985 Age: 31 ----- INDICATION ----- Maternal Asthma Maternal Obesity (bmi>30 but bmi<40) Other Condition ?Complete anatomy, declines genetcs CODING ----- Diagnosis ? O99.512: Diseases of the respiratory system complicating . ?O99.212: Obesity complicating . ?E66.8: Other obesity. ?XXX.10: Other condition. ?Z3A.24: Weeks Gestation of . Procedures ?61487: OB follow-up/Target per fetus. HISTORY ----- OB [...] lb 7 ? oz Calculated by ?Hadlock ([id number]) Proportionality Ratios: HC / AC ?1.14 ? [...] Pat. Name:Iman TADEO Date:05/06/2017 3:08pm Pat. NO: [id number] :Malinda Asencio [facility]Barbara Victor RDMS :1985Age:31 ----- INDICATION ----- Maternal Asthma Maternal Obesity (bmi>30 but bmi<40) Other Condition Complete anatomy,declines genetcs CODING ----- Diagnosis O99.512: Diseases of the respiratory systemcomplicating . O99.212: Obesity complicating . E66.8: Other obesity. XXX.10: Other condition. Z3A.24: Weeks Gestation of . Procedures 00708: OB follow-up/Target per fetus. HISTORY ----- OB History : 2. Para: 0. A1. Terminations: 1. METHOD ----- Transabdominal ultrasound examination. Good view. ----- Merino . Number of fetuses: 1. DATING ----- LMP on:11/15/2016 GA by [email or web address] w + 4 d ROSOCE by LMP:08/22/2017 Ultrasound examination on:05/06/2017 GA by [...] 1 lb 7 oz Calculated by Frederick ([id number]) Proportionality Ratios: HC / AC 1.14 52%Nicolaides [...]
--- OUTSIDE RECORDS SUMMARY | 2024-08-07 10:05 | XMS_ITS | Clinical Summary ---
Author Organization [facility] Address [address] [facility] [address] [place] [address] Phone Care Team Providers Care Craft Manager Name Role Phone Unavailable Primary Care Provider [...]
--- OUTSIDE RECORDS SUMMARY | 2024-08-07 10:05 | XMS_ITS | Continuity of Care Document ---
Author Organization [facility] Address [address] [place] [address] Phone Care Team Providers Care Risk Lead Name Role Phone Unavailable Unavailable Unavailable Advance Directives Directive Yes / No Effective Date File Name No Information Encounters Encounter Description Practice Location Reason(s) For Visit Diagnoses Date Provider Providers Copied on Encounter [facility], [address] [facility], [place], [place], [id number], [place] tel:[phone] [facility] OUT[facility]IENT No Information 7 No Information Referring Provider: HEIDY DOAN, [address] [place] [address],[place], [address]. tel:[phone] Family History Family Member Type Diagnosis Age At Onset No Information Payers Payer name Insurance type Covered republican ID Authorlisaa bjorn(s) [facility] PPO [id number] Social History Type Description Quantity Date Captured Comments Sex Female Smoking Status No Information Chief Complaint And Reason For Visit No Information History Of Present Illness Encounter Date Complaint History Of Prese nt Illness No Information Instructions Date Instruction Additional Infor mation No Information Assessments Type Assessment Date No Information
--- OUTSIDE RECORDS SUMMARY | 2024-08-07 10:05 | XMS_ITS | Encounter Summary ---
Author Organization [facility] Address [address] [place] [address] Care Team Providers Care Restaurant Expeditor Name Role Phone Unavailable Primary Care Provider Unavailabl e Reason for Visit * Outpatient Services (Routine) - Closed Specialty Diagnoses / Procedures Referred By Contadina t Referred To Contact Diagnoses size accords with dates, second trimester Procedures US OB DETAIL SINGLE GEST US OB 14+ WKS SINGLE GEST Benjamín Miller MD [address] [address] Referral ID Status Reason Start Date Expiration Date Visits Re quested Visits Authorized [id number] Closed 03/25/2017 04/25/2018 1 1 Encounter Details Date Type Department Care Team (Latest Contact Info) Description 04/08/2017 2:50 PM CDT - 04/08/2017 11:59 PM CDT Hospital Encounter [facility] [address] [place] [address] Benjamín Miller MD [address] [address] Discharge Disposition: Home or Self [...]
== END 2024-07-31 10:44 | disposition home or self-care (01) ==
PROVIDERS: Emergency Provider Nurse Practitioner; PCP Family Medicine Adolescent Medicine
DX: J40 Bronchitis, not specified as acute or chronic (principal); J01.40 Acute pansinusitis, unspecified; Z87.891 Personal history of nicotine dependence; F12.90 Cannabis use, unspecified, uncomplicated; J45.909 Unspecified asthma, uncomplicated
CPT/HCPCS: 99213; G0463

== ENCOUNTER 2025-05-01 11:41 | Outpatient (CLI) | payer OTHER, SELFPAY ==
[2025-05-01 12:33] LABS: Influenza A QL RT-PCR Negative (Negative); Influenza B QL RT-PCR Negative (Negative); RSV RNA, RT-PCR Negative (Negative); SARS-CoV-2 RNA PCR Negative (Negative)
--- OUTSIDE RECORDS SUMMARY | 2025-05-01 13:42 | XMS_ITS | Clinical Summary ---
Author Organization [facility] Address [address] [facility] [place] [address] Care Team Providers Care Motor Bike Mechanic Name Role Phone Layton Doan MD Primary Care Provider + Source Comments [facility],non-owned Affiliates and Associated Physician Practices is amultiple site organization consisting of ambulatory clinics and hospital sitesin [place], [place], [place] and [place]. This disclosure is being madepursuant to the Care Everywhere program and may not contain all information available regarding this patient. Last updated 18.[facility] Allergies No known active allergies Medications * Be aware that medications may not be up to date on this document. Alwaysverify current medications with the patient. albuterol HFA (VENTOLIN HFA) 108 (90 BASE) MCG/ACT inhaler Inhale 2 Puffs by mouth every 6 hours as needed for Shortness of Breath, Wheezing or Cough 1 Inhaler 7 Active Cetirizine HCl (ZYRTEC PO) Active Sertraline HCl (ZOLOFT PO) Active ClonazePAM (KLONOPIN PO) Active Cyclobenzaprine HCl (FLEXERIL PO) Active Family History Relation Name Status Comments Father Social History Tobacco Use Types Packs/Day Years Used Date Smoking Tobacco: Former Cigarettes 2 2016 Smokeless Tobacco: Never Estimated Date of Delivery Comme nts Yes 08/22/2017 Sex and Gender Information Value Date Recorded Sex Assigned at Not on file Legal Sex Female 9:01 AM CDT Gender Identity Not on file Sexual Orientation Not on file Last Filed Vital Signs Vital Sign Reading Time Taken Comments Blood Pressure 132/80 12/18/2017 2:05 PM CDT Pulse 82 12/18/2017 2:05 PM CDT Temperature 37 C (98.6 F) 12/18/2017 2:05 PM CDT Respiratory Rate 16 12/18/2017 2:05 PM CDT Oxygen Saturation 98% 12/18/2017 2:05 PM CDT Inhaled Oxygen Concentration - - Weight 90.7 kg (200 lb) 12/18/2017 2:05 PM CDT Height 172.7 cm (5' 8) 12/18/2017 2:05 PM CDT Body Mass Index 30.41 12/18/2017 2:05 PM CDT Plan of Treatment Health Maintenance Due Date Last Done Comments HIV SCREENING 2000 HEPATITIS C SCREENING 08/02/2003 DTAP/TDAP/TD VACCINES (1 - Tdap) 2004 HEPATITIS B VACCINE (1 of 3 - 19+ 3-dose series) 2004 PAP SMEAR 2006 HPV VACCINE (1 - 3-dose SCDM series) 2012 DEPRESSION SCREENING 08/16/2024 COVID-19 VACCINE (1 - 2023-2 5 season) 2025 INFLUENZA VACCINE (#1) 2025 ZOSTER VACCINE (1 of 2) 2035 Respiratory Syncytial Virus (RSV) Vaccine Pt: or over 60 yrs (1 - 1-dose 75+ series) 2060 HIB VACCINE Aged Out No longer eligi ble based on patient's age to complete this topic MENINGOCOCCAL (Group B) VACC INE SHARED DECISION-MAKING Aged Out No longer eligibl e based on patient's age to complete this topic MENINGOCOCCAL GROUPS A/C/Y/W VACCINE Aged Out No longer eligible b ased on patient's age to complete this topic PNEUMOCOCCAL VACCINE Aged Out No long er eligible based on patient's age to complete [place] [address] [place] [id number] [facility] Address: [facility] [id number] [place] [address] Care Teams Motor Bike Mechanic Relationship Specialty Start Date End Date Layton Doan MD [address] [address] PCP - General Family Medicine 11/02/16
--- OUTSIDE RECORDS SUMMARY | 2025-05-01 13:42 | XMS_ITS | Clinical Summary ---
Author Organization [facility] Address [address] [facility] [address] [place] [address] Phone Care Team Providers Care Sewer And Cutter Finger Buff Material Name Role Phone Unavailable Primary Care Provider Unavailabl e Social History Tobacco Use Types Packs/Day Years Used Date Smoking Tobacco: Never Assessed Comments Unknown Sex and Gender Information Value Date Recorded Sex Assigned at Not on file Legal Sex Female 3:19 PM CDT Gender Identity Not on file Sexual Orientation Not on file Plan of Treatment Health Maintenance Due Date Last Done Comments DTAP/TDAP/TD VACCINES (1 - Tdap) 2004 HEPATITIS B VACCINES (1 of 3 - 19+ 3-dose series) 07/17 HPV/Cotest (21-29) 2006 HPV VACCINES (1 - 3-dose SCDM series) 2012 CERVICAL CANCER SCREENING 2015 HPV/Cotest (30-65) 2015 PAP SMEAR 2015 INFLUENZA VACCINE (#1) 2025 Insurance [employer] BLUE PREFERRED
== END 2025-05-01 11:42 | disposition home or self-care (01) ==
LOC: ANHLAB 11:42
PROVIDERS: PCP Nurse Practitioner Family; Visit Provider Nurse Practitioner
DX: R50.9 Fever, unspecified (principal); Z20.822 Contact with and (suspected) exposure to COVID-19
CPT/HCPCS: 87637

== ENCOUNTER 2025-05-10 10:09 | Emergency (ER) | payer OTHER, SELFPAY ==
[2025-05-10 10:17] VITALS: BP 129/87; PULSE 92; RESP 24; TEMP 36.5; O2SAT 100
--- OUTSIDE RECORDS SUMMARY | 2025-05-10 11:11 | XMS_ITS | Clinical Summary ---
Author Organization [facility] Address [address] [facility] [address] [place] [address] Phone Care Team Providers Care Manager Home Healthcare Name Role Phone Unavailable Primary Care Provider [...] SMEAR 2015 INFLUENZA VACCINE (#1) 2025 Insurance BC BLUE PREFERRED
--- OUTSIDE RECORDS SUMMARY | 2025-05-10 11:11 | XMS_ITS | Clinical Summary ---
Author Organization [facility] Address [address] [place] [address] Care Team Providers Care Mba Internship Name Role Phone Layton Doan MD Primary Care Provider +1- [phone] Social History Tobacco Use Types Packs/Day Years [...] of 3 - 19+ 3-dose series) 2004 HPV Vaccines (1 - 3-dose SCD M series) 2012 Cervical Cancer Screening Pa p with HPV Testing (Age 30 to 64) Every 5 Years 2015 Cervical Cancer Screening with HPV 2015 COVID-19 Vaccine (2023-2 5 season) 2025 Meningococcal B Vaccine Aged Out No l onger eligible based on patient's age to complete this topic Meningococcal Vaccine Aged Out No sunitha duane eligible based on patient's age to complete this topic Pneumococcal Vaccine: Pediat rics (0 to 5 Years) and At-Risk Patients (6 to 49 Years) Aged Out No longer eligible b ased on patient's age to complete this topic RSV Immunizations Under 20 Months Aged Out No longer eligible based on patient's age to complete this topic Care Teams Mba Internship Relationship Specialty Start Date End Date Layton Doan MD [address] [place] [address] PCP - General 05/03/16
--- NOTE | 2025-05-10 11:30 | ED.GENADULT ---
HPI - General Adult General Chief complaint: Anxiety Stated complaint: ANXIETY,PANIC ATTACK Time Seen by Provider: 05/10/25 10:56 History of Present Illness HPI narrative: 39-year-old female presents to the emergency department for evaluation for increased anxiety. Patient does have a known history of anxiety and does take Ativan. Patient reports she was having some issues with neck and back pain proximal seeks ago started on prednisone and methocarbamol. Patient was then bit by cat and was started on antibiotic but had to stop taking the steroids. Patient then had her returned to the primary care and was started on Flexeril. Patient presents emergency department today concern for intermittent heart palpitations and worsening anxiety. Patient reports he did have a full-blown panic attack this morning. Patient is anxious and tearful at time of evaluation. Related Data Home Medications ?Medication ?Instructions ?Recorded ?Confirmed ?Last Taken ?Type cetirizine 10 mg capsule (Zyrtec) 10 mg PO DAILY 10/28/22 05/03/25 Unknown History fluticasone propionate 50 1 spray intranasal ONCE 07/31/24 05/03/25 Unknown History mcg/actuation nasal spray,suspension (24 Hour Allergy Relief) mupirocin 2 % topical ointment 1 applic topical TID 09/26/24 05/03/25 Unknown History ([place]) Allergies Allergy/AdvReac Type Severity Reaction Status Date / Time No Known Allergies Allergy Verified 05/10/25 10:10 Review of Systems Review of Systems: All systems reviewed & are unremarkable except as noted in HPI and below PMFSH Past Medical History Medical History Generalized anxiety disorder Vaginal delivery Asthma Anxiety and depression Surgical History Surgical History History of foot surgery Bilateral History of bunionectomy Status post wisdom tooth extraction Family History Family History Grandparent Acute myocardial infarction Asthma Depression Diabetes mellitus Heart disease Other Breast cancer Family history of malignant neoplasm of breast Mother Depression Father Depression Social History Social History Smoking status: Former smoker Smoking end date: 09/16/20 Alcohol intake: current Substance use: current Substance use type: marijuana Do You Feel Safe in your Home?: Yes Lack of Transportation: No Lack of Food: Never True Current Housing: I Have Housing Concerned About Future Housing: No Difficulty Paying Gas/Electric Bills: No Difficulty Paying for Meds: No Currently Unemployed: No Education: High School Diploma/GED Difficulty w/ Childcare or Family Care: No Living arrangements: with family Occupation/Education: occupation Gender identity (if verbalized by the patient): Female Sexual Orientation (if Verbalized by the Patient): Straight or Heterosexual Spiritual care concerns: No Exam Narrative: APPEARANCE: Well appearing, no pain, no distress, well-nourished. HEAD: normocephalic, atraumatic. EYES: PERRLA/EOMI, conjunctivae clear. NOSE: Normal no drainage EARS:TMS clear with good light reflex. THROAT: Pharynx clear, no exudate. NECK: Supple. No adenopathy, no masses. RESPIRATORY: Airway patent, respirations nonlabored. Clear to auscultation bilaterally, no rales, rhonchi, wheezing. CARDIOVASCULAR: Regular rate and rhythm without murmurs rubs or gallops. ABDOMINAL: Soft, nontender, nondistended, normal bowel sounds MUSCULOSKELETAL: Moves all extremities. Strength/ROM intact, No edema, No calf tenderness. NEURO: Alert. Cranial nerves II through XII intact. Good gait. Good coordination SKIN: Warm, dry. Normal Color PSYCHIATRIC: Anxious affect, improved after Ativan Course Vital Signs Vital signs: Vital Signs Temperature 97.7 F 05/10/25 10:17 Pulse Rate 92 05/10/25 10:17 Respiratory Rate 24 H 05/10/25 10:17 Blood Pressure 129/87 05/10/25 10:17 Pulse Oximetry 100 05/10/25 10:17 Temperature 97.7 F 05/10/25 10:17 Pulse Rate 78 05/10/25 12:18 Respiratory Rate 20 05/10/25 12:18 Blood Pressure 114/81 05/10/25 12:18 Pulse Oximetry 100 05/10/25 12:18 Oxygen Delivery Room Air 05/10/25 11:45 Medical Decision Making MDM Narrative Medical decision making narrative: 39-year-old female presents emergency department for evaluation for heart palpitations. Patient has normal sinus rhythm a normal blood pressure. Patient is afebrile with no leukocytosis hemoglobin 13.6. Patient has no acute abnormalities on her CMP. Both TSH and Mag were also within normal limits. On re-evaluation patient states she does feel improved. EKG showed normal sinus rhythm. Patient was encouraged close follow-up with her primary care physician for additional outpatient testing. All questions concerns were addressed. Differential Diagnosis Differential Diagnosis: Anxiety, tachycardia, heart palpitations, cardiac arrhythmia Vital Signs Vital Signs: Vital Signs Temperature 97.7 F 05/10/25 10:17 Pulse Rate 92 05/10/25 10:17 Respiratory Rate 24 H 05/10/25 10:17 Blood Pressure 129/87 05/10/25 10:17 Pulse Oximetry 100 05/10/25 10:17 Temperature 97.7 F 05/10/25 10:17 Pulse Rate 78 05/10/25 12:18 Respiratory Rate 20 05/10/25 12:18 Blood Pressure 114/81 05/10/25 12:18 Pulse Oximetry 100 05/10/25 12:18 Oxygen Delivery Room Air 05/10/25 11:45 Lab Data Lab results reviewed: Yes I reviewed the patient's lab results. 05/10/25 11:42 05/10/25 11:42 Labs: Lab Results 05/10/25 Range/Units 11:42 WBC 8.4 (4.5-10.0) K/mm3 RBC 4.42 (4.2-5.4) M/mm3 Hgb 13.6 (12.0-15.0) g/dL Hct 39.0 (37.0-47.0) % MCV 88.2 (80-100) fl MCH 30.8 (26-34) pg MCHC 34.9 (32-36) g/dl RDW 12.9 (11.5-14.5) % Plt Count 254 (150-375) k/mm3 MPV 9.4 (7.4-10.4) fl Immature Gran % (Auto) 0.5 (0-0.5) % Neut % (Auto) 64.7 (45.5-73.1) % Lymph % (Auto) 23.9 (18.3-44.2) % [place] % (Auto) 7.5 (2.6-8.5) % Eos % (Auto) 2.6 (0-4.4) % Baso % (Auto) 0.8 (0.2-1.2) % Lymph # (Auto) 2.02 (0.9-3.2) K/mm3 [place] # (Auto) 0.6 (0.1-0.6) K/mm3 Eos # (Auto) 0.2 (0-0.3) K/mm3 Baso # (Auto) 0.1 (0.0-0.1) K/mm3 Abs Immat Gran (auto) 0.04 H (0.00-0.031) K/mm3 Absolute Neuts (auto) 5.5 (1.3-6.7) K/mm3 Absolute Nucleated RBC 0.000 (0.0-0.012) K/mm3 Nucleated RBC % 0.0 (0.0-0.2) % Sodium 136 L (137-145) mmol/L Potassium 4.0 (3.4-5.0) mmol/L Chloride 104 (98-107) mmol/L Carbon Dioxide 24 (22-30) mmol/L Anion Gap 8 (4-12) mmol/L BUN 18 H (7-17) mg/dL Creatinine 0.73 (0.7-1.0) mg/dL Estim Creat Clear Calc 113 ml/min Estimated GFR > 60 (59 - ) Glucose 106 (65-110) mg/dL Calcium 9.2 (8.4-10.2) mg/dL Magnesium 1.7 (1.6-2.3) mg/dL Total Bilirubin 0.7 (0.2-1.3) mg/dL AST 24 (14-36) U/L ALT 22 (6-35) U/L Alkaline Phosphatase 74 (38-126) U/L Total Protein 7.9 (6.3-8.2) g/dL Albumin 4.5 (3.5-5.1) g/dL TSH (Reflex) 1.210 (0.465-4.68) uIU/mL ECG Data EKG #1: EKG Interpretation: normal rate, sinus rhythm, no ectopy, normal QRS, normal QT and NL axis Discharge Plan Discharge Clinical Impression: Heart palpitations, Anxiety Patient Disposition: Home Condition: Stable Instructions: Antibiotic Form, Heart Palpitations (DC), Anxiety (ED) Additional Instructions: Have close follow-up with your primary care physician for any additional outpatient cardiac testing. Continue to take your Ativan as needed for anxiety. If you have any worsening symptoms please call or return to the emergency department Patient Language: Algerian Prescriptions: No Action Zyrtec 10 mg Capsule 10 mg PO DAILY fluticasone propionate [24 Hour Allergy Relief] 50 mcg/actuation spray,suspension 1 spray intranasal ONCE Rx Instructions: administer into each nostril cyclobenzaprine 10 mg tablet 10 mg PO BID PRN (Reason: muscle spasm) Qty: 60 0RF lidocaine 5 % adhesive patch,medicated 1 patch topical DAILY Qty: 30 0RF Rx Instructions: leave on most painful area for up to 12 hrs mupirocin [Centany] 2 % ointment 1 applic topical TID doxycycline hyclate 100 mg capsule 100 mg PO BID Qty: 20 0RF lorazepam 0.5 mg tablet 0.5 mg PO DAILY PRN (Reason: anxiety) Qty: 20 0RF sertraline 100 mg tablet 100 mg PO DAILY Qty: 90 1RF buspirone 15 mg tablet See Rx Instructions .ROUTE .COMPLEX Qty: 180 2RF Dose Instruction: TAKE 1 TABLET BY MOUTH TWICE DAILY Rx Instructions: TAKE 1 TABLET BY MOUTH TWICE DAILY acyclovir 400 mg tablet 400 mg PO TID Qty: 15 4RF Follow-up/Referrals: Dora Rodriguez APRN [Primary Care Provider, Family Practice]
[2025-05-10 11:45] VITALS: BP 128/86; PULSE 81; RESP 16; O2SAT 100
[2025-05-10 11:48] LABS: Hematocrit 39.0 % (37.0-47.0); Hemoglobin 13.6 g/dL (12.0-15.0); Immature Granulocyte Percent A 0.5 % (0-0.5); Lymphocytes Absolute Auto 2.02 K/mm3 (0.9-3.2); Mean Corpuscular HGB Conc 34.9 g/dl (32-36); Mean Corpuscular Hemoglobin 30.8 pg (26-34); Mean Corpuscular Volume 88.2 fl (80-100); Nucleated Red Blood Cells Absolute Auto 0.000 K/mm3 (0.0-0.012); Nucleated Red Blood Cells Perc 0.0 % (0.0-0.2); Platelet Count Result 254 k/mm3 (150-375); Red Blood Count 4.42 M/mm3 (4.2-5.4); White Blood Count 8.4 K/mm3 (4.5-10.0)
[2025-05-10] MEDS: LORazepam (*CRX) 1 MG TABLET PO (12:01)
[2025-05-10 12:09] LABS: Alanine Aminotransferase 22 U/L (6-35); Albumin Level 4.5 g/dL (3.5-5.1); Alkaline Phosphatase 74 U/L (38-126); Anion Gap 8 mmol/L (4-12); Aspartate Amino Transferase 24 U/L (14-36); Bilirubin,Total 0.7 mg/dL (0.2-1.3); Blood Urea Nitrogen 18 mg/dL (7-17); Calcium 9.2 mg/dL (8.4-10.2); Carbon Dioxide 24 mmol/L (22-30); Chloride 104 mmol/L (98-107); Estimated CRCL calculation 113 ml/min; Estimated Glomerular Filt Rate > 60; Glucose 106 mg/dL (65-110); Magnesium 1.7 mg/dL (1.6-2.3); Potassium 4.0 mmol/L (3.4-5.0); Sodium 136 mmol/L (137-145); Total Protein 7.9 g/dL (6.3-8.2)
[2025-05-10 12:18] VITALS: BP 114/81; PULSE 78; RESP 20; O2SAT 100
[2025-05-10] MEDS: LACTATED RINGERS 1,000 ML 999 ML IV CONT (12:18)
[2025-05-10 12:39] LABS: Thyroid Stimulating Hormone Reflex 1.210 uIU/mL (0.465-4.68)
--- NOTE | 2025-05-10 13:23 | ECG_ITS ---
Test Date: 2025-05-10 13:36:39 Measurements Intervals [place] Rate: 73 P: 42 NH: 210 QRS: 12 QRSD: 116 T: 6 QT: 409 QTc: 452 Interpretive Statements SINUS RHYTHM WITH FIRST DEGREE AV BLOCK INCOMPLETE RIGHT BUNDLE BRANCH BLOCK [90+ ms QRS DURATION, TERMINAL R IN V1/V2, 40+ ms S IN I/aVL/V4/V5/V6] No previous ECG available for comparison Electronically Signed On 05-10-2025 13:58:29 CDT by Alisa Wan M.D.
== END 2025-05-10 14:00 | disposition home or self-care (01) ==
PROVIDERS: Emergency Provider Emergency Medicine; PCP Nurse Practitioner Family
DX: R00.2 Palpitations (principal); F41.9 Anxiety disorder, unspecified; Z87.891 Personal history of nicotine dependence; F12.90 Cannabis use, unspecified, uncomplicated
CPT/HCPCS: 36415; 80053; 83735; 84443; 85025; 93005; 96360; 99283; A9270; J7120